=== PATIENT | male | born 1955 | race Caucasian/White ===

== ENCOUNTER 2017-01-18 21:12 | Inpatient (IN) | payer OTHER, SELFPAY ==
[~2017-01-18] VITALS: Ht 180.3 cm; Wt 161.9 kg
[2017-01-19] VITALS (38 sets, daily range): BP systolic 56–136; BP diastolic 22–81
[2017-01-19] MEDS ORDERED: ONDANSETRON 4MG/2ML VIAL (J2405) IV PRN (00:45)
[2017-01-19] MEDS ORDERED: ACETAMINOPHEN TAB 650MG DOSE (2X325MG) PO PRN (00:45)
[2017-01-19] MEDS ORDERED: BISACODYL 10 MG SUPP PR PRN (00:45)
[2017-01-19] MEDS ORDERED: ACETAMINOPHEN 650 MG SUPP PR PRN (00:45)
[2017-01-19] MEDS ORDERED: VANCOMYCIN 1000 MG/20 ML VIAL (J3370) As Ordered ONE (01:11)
[2017-01-19] MEDS ORDERED: VANCOMYCIN HCL 1,000 MG, VIAL MATE ADAPTER 1 EACH in D5W 250 ML IV ONE (01:15)
[2017-01-19 01:28] LABS: VENOUS BASE EXCESS -5.2 (-2.0-2.0); VENOUS O2 SATURATION 87.8 % (60.0-80.0); VENOUS PARTIAL PRESSURE CO2 36.1 mmHg (38.0-50.0); VENOUS PARTIAL PRESSURE O2 54.7 mmHg (30.0-50.0); VENOUS TOTAL CO2 20.8 MEQ/L (24.0-28.0)
[2017-01-19 01:30] LABS: BASO % 0.3 % (0.0-1.0); EOS # 0.2 K/mm3 (0.0-0.50); EOS % 1.3 % (0.0-3.0); LARGE UNSTAINED CELL # 0.1 K/mm3 (0.0-0.4); LYMPH # 0.8 K/mm3 (1.5-4.5); LYMPH % 4.6 % (24.0-44.0); MEAN CORPUSCULAR HEMOGLOBIN 27.9 pg (27.0-33.0); MEAN CORPUSCULAR HGB CONC 31.4 g/dl (32.0-36.5); MEAN CORPUSCULAR VOLUME 88.9 fl (80.0-96.0); MONO # 0.5 K/mm3 (0.0-0.8); MONO % 3.8 % (0.0-5.0); NEUTROPHILS # 12.2 K/mm3 (1.8-7.7); NEUTROPHILS % 89.1 % (36.0-66.0); PLATELET COUNT, AUTOMATED 273 k/mm3 (150-450); RED CELL DISTRIBUTION WIDTH 16.8 % (11.5-14.5); WHITE BLOOD COUNT 13.7 K/mm3 (4.0-10.0)
[2017-01-19] MEDS ORDERED: GLUCAGON FOR INJ 1 MG VIAL (J1610) SC PRN ×2 (01:30→10:00)
[2017-01-19] MEDS ORDERED: DEXTROSE 50% 50 ML SYRINGE IV PRN ×2 (01:30→10:00)
[2017-01-19] MEDS ORDERED: GLUCOSE 4 GM CHEW TABLET PO PRN ×2 (01:30→10:00)
[2017-01-19] MEDS ORDERED: SODIUM CHLORIDE 0.9% 1000 ML IV ONE ×2 (01:45→07:45)
[2017-01-19] MEDS ORDERED: NS 1,000 ML IV SCH (01:45)
[2017-01-19 01:51] LABS: INR 3.05
[2017-01-19] MEDS ORDERED: INSULANT SC (01:51)
[2017-01-19] MEDS ORDERED: ATEN100T PO (01:51)
[2017-01-19] MEDS ORDERED: CLON3PA TD (01:51)
[2017-01-19] MEDS ORDERED: FURO1TAB15 PO (01:51)
[2017-01-19] MEDS ORDERED: ATOR40TA PO (01:51)
[2017-01-19] MEDS ORDERED: WARF-23 PO (01:51)
[2017-01-19] MEDS ORDERED: OMEP20CA3 PO (01:51)
[2017-01-19] MEDS ORDERED: ADV500INH INH (01:51)
[2017-01-19] MEDS ORDERED: ZYLO300T4 PO (01:51)
[2017-01-19] MEDS ORDERED: VALS320T3 PO (01:51)
[2017-01-19] MEDS ORDERED: FLUT1SPR2 (01:51)
[2017-01-19] MEDS ORDERED: POTA10CA PO (01:51)
[2017-01-19] MEDS ORDERED: DILT1TAB7 PO (01:51)
[2017-01-19] MEDS ORDERED: VITA50003 PO (01:51)
[2017-01-19] MEDS ORDERED: METF1000 PO (01:51)
[2017-01-19 01:52] LABS: ALBUMIN 2.2 GM/DL (3.2-5.2); ALBUMIN/GLOBULIN RATIO 0.52 (1.00-1.93); BILIRUBIN,DIRECT 0.1 MG/DL (0.0-0.2); BILIRUBIN,TOTAL 0.6 MG/DL (0.2-1.0); CREATININE FOR GFR 2.09 MG/DL (0.70-1.30); GLOMERULAR FILTRATION RATE 34.7 (>49); MAGNESIUM LEVEL 2.5 MG/DL (1.8-2.4); POTASSIUM SERUM 4.6 MEQ/L (3.5-5.1); TOTAL PROTEIN 6.4 GM/DL (6.4-8.2)
[2017-01-19 02:32] LABS: FIBRINOGEN 449 MG/DL (221-452)
[2017-01-19] MEDS ORDERED: INSULIN HUMAN REGULAR 100 UNITS in NS 99 ML IV SCH ×2 (03:00→22:30)
[2017-01-19] MEDS: D5W/0.9% SODIUM CHLORIDE 1,000 ML IV SCH ×2 (03:19→13:24)
[2017-01-19] MEDS: PIPERACILLIN/TAZOBACTAM SOD 2.25 GM in D5W MINI-BAG PLUS 50 ML IV SCH ×4 (03:20→20:27)
[2017-01-19] MEDS ORDERED: POTASSIUM CHLORIDE 10 MEQ SR TABLET PO ONE (03:30)
[2017-01-19] MEDS ORDERED: IPRATROPIUM 0.5MG/ALBUTEROL 2.5MG INH SOL UD 3ML (DUONEB)(J7620) NEB PRN (03:30)
[2017-01-19] MEDS: INSULIN IV RATE CHANGE DOCUMENTATION ML/HR XX SCH ×2 (03:52→06:13)
[2017-01-19] MEDS: FLUCONAZOLE 200 MG in APPROPRIATE DILUENT 1 EA IV SCH ×2 (04:25→23:41)
--- NOTE | 2017-01-19 05:24 | PHACANCOPD ---
PHARMACY VANCOMYCIN DOSING Pt Demographics Demographics Patient Age:61 , Weight:160.000 , Gender: male Adjusted Body Weight Date: 01/19/17, Adjusted Body Weight: [109.2] Kg Vancomycin Vancomycin indication: SEVERE SEPSIS Vancomycin Target Ranges: 15-20 mcg/ml Vancomycin Load Y/N: No Load Dose Date Time Vancomycin Load Dose: Date: Time: Vancomycin Dose Date: 01/19/17. Current Vancomycin Dose: [750MG IV Q12H] Intermittent Dosing?: No Labs Labs Laboratory Tests 01/19/17 01:20 Red Blood Count 4.31, Mean Corpuscular Volume 88.9, Mean Corpuscular Hemoglobin 27.9, Mean Corpuscular Hemoglobin Concent 31.4 L, Red Cell Distribution Width 16.8 H, Neutrophils (%) (Auto) 89.1 H, Lymphocytes (%) (Auto) 4.6 L, Monocytes ( %) (Auto) 3.8, Eosinophils (%) (Auto) 1.3, Basophils (%) (Auto) 0.3, Neutrophils # (Auto) 12.2 H, Lymphocytes # (Auto) 0.8 L, Monocytes # (Auto) 0.5 , Eosinophils # (Auto) 0.2, Basophils # (Auto) 0.0 Micro Microbiology 01/19/17 Blood Culture, Received Pending 01/19/17 Blood Culture, Received Pending 01/19/17 MRSA Screen, Received Pending 01/19/17 Urine Culture, Received Pending Creatinine Clearance Date:01/19/17. Creatinine Clearance: [58.1]CALCULATED. Pending Labs TROUGH DUE 01/20@1200 Assessment and Plan Maintaining Current Dose?: Yes Reason for dose change: No Dose Change Pharmacist Note Pharmacist Note Date: 01/19/17. Pharmacist note:61 YO M SCR=2.09,BMI=49.2 [facility]DA-ADMITTED FACILITY TRANSFER(WHERE HR RECEIVED LEVAQUIN 750MG IV X1)SEVERE SEPSIS/ CELLULITIS:TREATING W/FLUCONAZOLE 200MG IV Q24H,PIP/TAZO 2.25 IV Q6H AND VANCOMYCIN PER CONSULT.VANCOMYCIN 1 GM ON ARRIVAL TO ICU,THEN WILL CONTINUE W/ VANCOMYCIN 750MG IV Q12H.TROUGH SCHEDULED 01/20@1200;WILL CONTINUE TO FOLLOW SCR AND LEVELS [facility] Jan 19, 2017 05:24
--- NOTE | 2017-01-19 06:51 | HPE ---
DATE OF ADMISSION: 01/19/2017 Time patient was seen was this morning at 1 a.m. Chief complaint is diabetic ketoacidosis and severe sepsis, transferred from [facility]. HISTORY OF PRESENT ILLNESS (HPI): 61-year-old male with past medical history of insulin-dependent type 2 diabetes, chronic kidney disease stage III-IV, also chronic atrial fibrillation on warfarin, chronic obstructive pulmonary disease (COPD) congestive heart failure (CHF) uncertain type, gout, hypertension, hyperlipidemia, vitamin D deficiency, allergic rhinitis, gastroesophageal reflux disease (GERD), cellulitis of lower extremity, also venous stasis of lower extremity was transferred from [facility] this evening around 1 a.m. due to severe sepsis and diabetic ketoacidosis (DKA). Per patient, he was in [facility] around 2 p.m.. Before that, he fell and was unable to get up and was transported to the hospital due to his fall. In addition, he stated that when he fell he did not hit his head and he could stepped on something. He did not lose consciousness and he has not been taking his insulin for the past 4 days. He was in his bed and does not want to get up due to his house was cold and he was out of fuel for heating. In addition, he has a left lower extremity cellulitis, which he cleans up every week normally. However, due to it was too cold inside the room, he does not want to get out of bed and he did not clean the wound for at least 2 weeks. Otherwise, the patient denies any chest pain, trouble breathing, abdominal pains, nausea, vomiting, diarrhea or constipation. Denies any problem with urination. At [facility], patient was found to have a glucose of 716 and anion gap of 25. In addition, he also found to have worsening of his left lower extremity cellulitis and his blood pressure was low with a systolic blood pressure in the 80s. He received Levaquin 750 mg once and also 4 liters of normal saline bolus at [facility]. He was also found to be having acute on chronic kidney disease with creatinine of 2.75 and a white count of 15.9, and ketone in his urine. ALLERGIES: NO KNOWN DRUG ALLERGY. Home medications: -allopurinol 300 mg po qdaily -atenolol 100 mg po daily -atorvastatin 40 mg po daily -clonidine 0.3 mg 1 topically q weekly missed change on 01/12 -Diltiazem ER 360 mg PO daily -Vitamin D 50,000 u Po q weekly -Fluticasone 2 spray Na daily -Furosemide 80 mg daiy -Insulin Glargine 65 u SC bid -Metformin 1000 mg PO bid -OMeprazole 20 mg PO daily - Potassium chloride 40 barbara po bid -Advair diskus 500-50 Mcg 1 puff inh bid -Valsartan/HCTZ 320-25 mg 1 tab po daily -Warfarin 5 mg and 7.5 mg every other day PAST MEDICAL HISTORY: Includin. Insulin-dependent type 2 diabetes. 2. Chronic atrial fibrillation on warfarin. 3. COPD. 4. Questionable obstructive sleep apnea. 5. Chronic kidney disease with a creatinine of 2.2 in November. 6. CHF, unknown type, takes Lasix 80 mg twice a day at home. 7. Gout. 8. Hypertension. 9. Morbid obesity. 10. Hyperlipidemia. 11. Vitamin D deficiency. 12. Allergic rhinitis. 13. GERD. 14. Cellulitis of the left lower extremity and venous stasis ulcer of bilateral lower extremity. PAST SURGICAL HISTORY: Denies. SOCIAL HISTORY: Patient lives at [place], [place]. Denies any smoking. Admits to occasional drinking. Denies any recreational drug use. Patient lives at home with his . FAMILY HISTORY: Hypertension and diabetes. REVIEW OF SYSTEMS: GENERAL: Patient denies any recent weight changes, any recent traveling. Denies any fever or chills. Admits to not taking insulin for the past few days. Admits to medical noncompliance. HEENT: Denies any changes with vision, smell, hearing or taste. CARDIOVASCULAR: Denies any chest pain. Admits to mild trouble breathing. PULMONARY: Admits to COPD and admits to some trouble breathing. Also, patient has possible obstructive sleep apnea. Patient did not undergo a sleep test due to patient did not want it. He also stated that he was on oxygen years ago. However, he is no longer on oxygen due to he chose not to. GASTROINTESTINAL (GI): Denies any abdominal pain, nausea, vomiting or constipation. GENITOURINARY (): Denies any problem with urination. MUSCULOSKELETAL: Admits to mild backache. ENDOCRINE: Admits to insulin-dependent type 2 diabetes. Denies any heat or cold intolerance. HEMATOLOGY/ONCOLOGY: Denies any easy bruising or any bleeding anywhere. PSYCHIATRIC: Denies any anxiety or depression. NEUROLOGIC: Denies any weakness on any one side of his body, any change of positions. DERMATOLOGICAL: Patient does have a chronic left lower extremity cellulitis, which he wraps up and cleans his wound about once every week. However, recently , due to it was too cold in the room, he did not bother to go out of his bed to clean his wound. PHYSICAL EXAMINATION: VITAL SIGNS: Temperature was 97.6. Heart rate was 76. Blood pressure was 86/ 54 with a respiratory rate of 20 and oxygen was saturating at 97% on 2 liters of nasal cannula. Patient's weight is 160 kg. Height is 5 feet and 11 inches. GENERAL: Patient is a morbidly obese, elderly female who was alert, awake, oriented times three. Appears to be mildly lethargic. Otherwise, laying comfortably in bed with head elevated at 30 degrees. HEENT: Normocephalic, atraumatic. Extraocular motor intact. Mucosa moist. NECK: Supple. No neck lymphadenopathy. CARDIOVASCULAR: Regular rate and rhythm. Normal S1, S2. Difficult to auscultate due to body habitus and also increased AP diameter. LUNGS: Clear to auscultate bilaterally. Heart rate was difficult to auscultate due to body habitus and increased AP diameter. ABDOMEN: Positive bowel sounds. Soft, obese, nontender, nondistended. No peritoneal signs. No ecchymosis. EXTREMITIES: Patient does have a candidiasis of bilateral groin area. He also has a cellulitis of left lower extremity extending to the left heel, which was erythematous, and also at least 1+ pitting edema produces serosanguineous drainage. However, no purulent drainage were noted. No crepitus. Not tender to palpation. Patient also has right lower extremity nonpitting edema. SKIN: Warm and dry, as described above. NEUROLOGICAL: Cranial nerves II-XII intact. No focal neurological deficit. LABORATORY DATA: Over at [facility], patient's WBC was 15.9. Sodium was 125, potassium 5.9. Patient's anion gap over there was 95, glucose 716. Creatinine was 2.75. At time of hospital at 1:20 a.m., patient's WBC 13.7, hemoglobin 12, hematocrit 30.3, platelet count was 273, MCV was 88.9. Sodium 135, potassium 4.6, chloride 98, bicarbonate 21, BUN 56, creatinine 2.09, GFR 34.7, fasting glucose 179, lactic acid 2, calcium 8, magnesium 2.5, was high. Total bilirubin 0.6, direct bilirubin 0.1, AST 31, ALT 14, alkaline phosphatase 81. CK was elevated 788, CK-MB 6.7. Troponin 0.03. Total protein 6.4. Albumin was low 2.2. Patient's coag shows PT 31, INR 3, fibrinogen 449 was within normal range, which was 221-452. D-dimer is currently pending. Patient's ABG shows pH of 7.35, pCO2 36, pO2 54.7, bicarbonate of 19.7, total CO2 was 20.8 and oxygen saturation was 87.8% with base excess of negative 5.2. Patient's Accu-Chek glucose was 174, 161, 189. Blood culture times two is currently pending. Patient also has PA and lateral chest x-ray ordered as well as Doppler duplex of bilateral lower extremity and left foot tibia-fibula x-ray ordered. Results are pending. CURRENT MEDICATION: - Senokot one tab - nystatin powder topically twice a day to the groin area - Zosyn 2.25 grams intravenously every 6 hours - D5 normal saline at a rate of 250 mL/hr - Hypoglycemic protocol with D50 25 mL intravenously and also glucose 16 grams by mouth and glucagon 1 mg subcutaneous. - vancomycin 1 gram intravenously every 24 hours adjusted by pharmacy - insulin drip - Tylenol 650 mg every 4 hours as needed - Dulcolax 10 mg per rectal daily as needed - Zofran 4 mg intravenously every 6 hours - fluconazole 200 mg intravenously every 24 hours ASSESSMENT AND PLAN: 61-year-old male with past medical history of insulin-dependent type 2 diabetes, chronic atrial fibrillation on warfarin, chronic obstructive pulmonary disease, possible obstructive sleep apnea (was never tested), left lower extremity cellulitis, chronic kidney disease stage III-IV, congestive heart failure with unknown ejection fraction, gout, hypertension, medical noncompliance, hyperlipidemia, vitamin D deficiency, allergic rhinitis, gastroesophageal reflux disease, venous stasis of bilateral lower extremity, and morbid obesity presented with: 1. Severe sepsis with a white blood cell (WBC) initially of 15.9 and blood pressure of 80s/50s. Patient did receive 4 liters of normal saline bolus in the [facility] as well as received one dose of Levaquin 750 mg. After patient has been transferred to our hospital it was apparent that patient's left lower extremity appears to be in poor care, was dripping serosanguineous fluid and appears to be erythematous and swollen, which extending from the left knee to the left heel. At this point, patient's blood pressure also dropped as low as 70s/40s. However, with the next blood pressure taken within 15 minutes it would go up to the high 80s again systolic. His is responding to IVF and maintaining a MAP>65. Cont to monitor for possible pressor therapy in the next 24 hrs. Otherwise, will obtain blood culture times two. Will continue patient on empiric antibiotic vancomycin, Zosyn and will consult wound care next day morning for the left lower extremity cellulitis and continue to monitor patient. 2. Diabetic ketoacidosis with history of fpo-dbjypvy-latcflvxy type 2 diabetes. Patient's home medications, including metformin, has been on hold. Patient is currently on an insulin drip. Patient's anion gap at [facility] initially was 25, currently is at 16. Will continue to monitor patient's fingersticks every 1 hour and patient has been started on D5 normal saline at a rate of 250 currently for both diabetic ketoacidosis and severe sepsis, and will keep patient nothing by mouth at this moment due to severe sepsis and DKA. 3. Bilateral lower extremity edema. Doppler duplex of the lower extremity has been ordered. Will followup. 4. Abnormal electrocardiogram (EKG), which shows ventricular rate of 87, atrial fibrillation, marked left axis deviation. Also, moderate intraventricular conduction delay and also prolonged QT and ST-T wave changes. Will repeat an EKG in the morning. Cardiac marker has been ordered. Did not show any elevation. Troponin was 0.03. CK was 788. CK-MB was 6.7. Will repeat another set in the morning and will continue to monitor patient. 5. Chronic atrial fibrillation. Patient's international normalized ratio (INR) currently is 3.05, slightly therapeutic. Will hold off the warfarin for now and will restart as needed. Continue to follow prothrombin time (PT)/INR in the morning. 6. Fall at home. However, there is no obvious bruising. Patient did not hit his head. Patient does complain of a mild backache. However, he stated he had it before when he was at home. Will continue close monitoring. Will order imaging if needed. 7. Hyperkalemia with a potassium of 5.9 while patient was at [facility]. However, potassium currently is 4.6. Will continue to monitor. Will keep K between 4 and 5 as patient has been treated with DKA. 8. Hyponatremia with a sodium of 125 when patient was at [facility]. Current sodium is 135. Will continue to monitor closely and will avoid hypernatremia. 9. Hypomagnesemia with magnesium of 2.5. Currently will continue to monitor. 10. Malnutrition with albumin of 2.2. Will start supplementation once patient is able to eat and drink. 11. Anemia with a hemoglobin of 12, hematocrit of 38.7. Will obtain fecal occult and B12, folate and ertapenem. 12. Chronic obstructive pulmonary disease. Will continue home Advair with DuoNebs every 2 hours as needed. Continue oxygen and due to severe sepsis, will keep oxygen saturation above 92%. Later on will change it back between 88-92%. 13. Acute on chronic kidney disease with a creatinine of 2.75 initially at [facility]. However, most recent creatinine in our hospital shows it was 2.09, which is close to patient's baseline, which was measured in November. At that time, creatinine was 2. Will continue IV hydration. Will hold off patient's home metformin. 14. Congestive heart failure. Unknown ejection fraction. Patient is on furosemide 80 mg by mouth daily at home; hold as pt is hypotensive. Will consider to order an echocardiogram if needed. 15. History of hypertension. Patient was on multiple hypertensive medication at home, including atenolol, clonidine, diltiazem, valsartan, hydrochlorothiazide. However, patient is in hypotension currently due to severe sepsis and DKA. Will continue to monitor. Will hold off any home medication for now and restart them as needed. 16. History of gout. Continue allopurinol. 17. Medical noncompliance. Per our household appliances service technician, it was reported that some of the patient's home medication appears to be full. Therefore, likely, he has not been taking them. Will likely need to consult patient and family services (PFS) later once patient is more stable. 18. Hyperlipidemia. Continue home statin. 19. Vitamin D deficiency. Continue to monitor. 20. Allergic rhinitis. Continue Flonase. 21. Gastroesophageal reflux disease. Continue home proton pump inhibitor (PPI) . 22. Cellulitis of the left lower extremity and venous stasis. Will consult wound care. 23. Possible foreign object in foot when patient fell he felt he stepped on something. X Ray was ordered, will follow up. 23. Deep venous thrombosis (DVT) prophylaxis. Currently, patient has a supratherapeutic INR and will resume warfarin as needed. DISPOSITION: Patient's prognosis is guarded due to his severe sepsis with hypotension and also DKA. Will possibly need central line placement if patient' s mean arterial pressure (MAP) drops below 65 and at this point, we will continue patient on insulin drip, will followup with a blood culture and continue to monitor patient. Patient has been discussed with attending doctor, Dr. Murillo. My preceptor for this patient encounter was Tal Murillo MD. The preceptor was physically present in the building during the encounter and was fully available. As needed, all aspects of the patient interview, examination, medical decision making process, and medical care plan development were reviewed and approved by the preceptor. The preceptor is aware and concurs with the plan as stated in the body of this note and will attest to such by his/her co-signature. CESAR
[2017-01-19 07:19] LABS: BASO % 0.3 % (0.0-1.0); EOS # 0.1 K/mm3 (0.0-0.50); EOS % 1.1 % (0.0-3.0); LARGE UNSTAINED CELL # 0.1 K/mm3 (0.0-0.4); LARGE UNSTAINED CELL % 0.8 % (0.0-4.0); LYMPH # 0.8 K/mm3 (1.5-4.5); LYMPH % 5.6 % (24.0-44.0); MEAN CORPUSCULAR HEMOGLOBIN 27.8 pg (27.0-33.0); MEAN CORPUSCULAR HGB CONC 31.5 g/dl (32.0-36.5); MEAN CORPUSCULAR VOLUME 88.1 fl (80.0-96.0); MONO # 0.4 K/mm3 (0.0-0.8); MONO % 3.6 % (0.0-5.0); NEUTROPHILS # 10.4 K/mm3 (1.8-7.7); NEUTROPHILS % 88.6 % (36.0-66.0); PLATELET COUNT, AUTOMATED 242 k/mm3 (150-450); RED CELL DISTRIBUTION WIDTH 16.8 % (11.5-14.5); WHITE BLOOD COUNT 11.7 K/mm3 (4.0-10.0)
[2017-01-19 07:24] LABS: INR 3.36
[2017-01-19 08:02] LABS: CALCIUM LEVEL 7.6 MG/DL (8.8-10.2); CREATININE FOR GFR 2.05 MG/DL (0.70-1.30); GLOMERULAR FILTRATION RATE 35.4 (>49); MAGNESIUM LEVEL 2.4 MG/DL (1.8-2.4); PERCENT SATURATION 17.9 % (19.7-37.4); POTASSIUM SERUM 4.2 MEQ/L (3.5-5.1)
[2017-01-19] MEDS: ATORVASTATIN 20 MG TAB PO SCH (08:03)
[2017-01-19] MEDS: SENOKOT S TAB PO SCH ×2 (08:03→20:28)
[2017-01-19] MEDS: OMEPRAZOLE 20 MG CAP PO SCH (08:03)
[2017-01-19] MEDS: ALLOPURINOL 300 MG TAB PO SCH (08:03)
[2017-01-19] MEDS: NYSTATIN 100,000 UNITS/GM TOPICAL PWD 15 GM TOP SCH ×2 (08:04→20:29)
[2017-01-19] MEDS: FLUTICASONE PROP 0.05% NASAL SPRAY 16 GM (FLONASE) SCH (08:05)
[2017-01-19] MEDS: ADVAIR DISKUS 500/50 INH PWD INH SCH ×2 (08:11→19:43)
[2017-01-19 08:48] LABS: FOLATE > 24.0 NG/ML (>5.4); VITAMIN B12 LEVEL 640 PG/ML (247-911)
[2017-01-19] MEDS ORDERED: NYSTATIN CREAM 15 GM TOP SCH (09:00)
[2017-01-19] MEDS ORDERED: LIDOCAINE 1% MDV 20ML VIAL As Ordered ONE (10:25)
[2017-01-19] MEDS ORDERED: NS 500 ML IV ONE ×2 (10:30)
[2017-01-19] MEDS ORDERED: NOREPINEPHRINE 4 MG/4 ML AMP As Ordered ONE (10:41)
--- NOTE | 2017-01-19 10:59 | REP ---
Clinical: Sepsis . Comparison: None . Findings: The mediastinum and cardiac silhouette are stable and within normal limits for portable technique. The lung latif are clear without acute consolidation, effusion, or pneumothorax. Skeletal structures are intact. Impression: Normal portable chest x-ray Signed by Taran Oquendo MD 01/19/2017 10:52 A
[2017-01-19] MEDS ORDERED: NOREPINEPHRINE BITARTRATE 8 MG in D5W 500 ML IV SCH (11:00)
[2017-01-19 11:30] LABS: CALCIUM LEVEL 7.3 MG/DL (8.8-10.2); CREATININE FOR GFR 2.18 MG/DL (0.70-1.30); POTASSIUM SERUM 4.4 MEQ/L (3.5-5.1)
--- NOTE | 2017-01-19 11:40 | REP ---
Clinical: Rule out foreign body. Technique: Portable AP and lateral views of the right and left tibia / fibula Findings: The osseous structures and joint spaces demonstrate age-related changes. There is no evidence for acute fracture or dislocation. No radiodense foreign body identified. Impression: Age-related degenerative changes. No foreign body identified. Signed by Taran Oquendo MD 01/19/2017 11:31 A
--- NOTE | 2017-01-19 11:49 | REP ---
PORTABLE CHEST: AP portable view of the chest is performed. COMPARISON: 01/19/2017. Prominent cardiac silhouette is again noted. No new infiltrates are seen. There is placement of a left subclavian central venous catheter with the tip in the superior vena cava. There is no pneumothorax. IMPRESSION: No pneumothorax, status post insertion of left central venous catheter, tip superior vena cava. Signed by Larry Walters MD 01/19/2017 01:26 P
--- NOTE | 2017-01-19 11:53 | REP ---
Clinical: Rule out foreign body. Technique: Portable AP and lateral views of the right and left foot. Findings: Swelling and extensive degenerative changes are appreciated bilaterally (left greater than right). No obvious acute fracture or dislocation. No radiodense foreign body. Impression: No foreign body identified. Signed by Taran Oquendo MD 01/19/2017 11:44 A
[2017-01-19 11:54] LABS: ABG BASE EXCESS -5.3 (-2.0-2.0); ABG HCO3 19.2 MEQ/L (22.0-26.0); ABG PARTIAL PRESSURE CO2 34.4 mmHg (35.0-45.0); ABG PARTIAL PRESSURE O2 94.4 mmHg (75.0-100.0); ABG STANDARD HCO3 20.1 MEQ/L (22.0-26.0); ABG TOTAL CO2 20.3 MEQ/L (23.0-31.0); ABG pH (ARTERIAL) 7.365 UNITS (7.350-7.450)
[2017-01-19] MEDS: HumaLOG INSULIN (NovoLOG) PER UNIT SC SCH ×2 (12:26→17:45)
[2017-01-19] MEDS: VANCOMYCIN HCL 750 MG, VIAL MATE ADAPTER 1 EACH in D5W 250 ML IV SCH (13:24)
[2017-01-19 14:10] LABS: CREATININE FOR GFR 2.21 MG/DL (0.70-1.30); GLOMERULAR FILTRATION RATE 32.5 (>49); POTASSIUM SERUM 4.6 MEQ/L (3.5-5.1)
[2017-01-19] MEDS: SANTYL OINT 30GM TOP SCH (15:51)
[2017-01-19] MEDS: NS 1,000 ML IV SCH ×2 (16:10→23:09)
--- NOTE | 2017-01-19 17:00 | CR ---
DATE OF CONSULTATION: 01/19/2017 TELEMEDICINE CONSULT CONSULT REQUESTED BY: Dr. Clayton Waite. REGARDING: Bilateral lower extremity wounds. HISTORY OF PRESENT ILLNESS: A 61-year-old morbidly obese diabetic, noncompliant male admitted with a blood glucose of over 700, grossly dehydrated, in a home that, by history, does not have running water or heat. The patient was lying on the floor, not unconscious, for over an hour and could not get up due to his size. He was brought to the emergency room, resuscitated, and is now in the intensive care unit (ICU) for monitoring. Patient has a longstanding history of bilateral venous stasis ulcers and venous insufficiency, diabetic neuropathy, stasis dermatitis, and a wound involving the right heel which he states was due to recently stepping on a foreign object. A recent x-ray has confirmed that there is no residual evidence of foreign body in that area. The patient is presently in the ICU, alert and oriented, and although sometimes vague with his responses is, is able to communicate. The fact that the patient was Iying on the floor for over an hour places him at risk for potential deep tissue injuries involving the bony prominence areas including the heels and sacral coccyx areas. These areas have the potential to progress, over the next several days to develop into deep tissue injuries which can lead to advance pressure injuries and should be taken into account, since the precipitating problem occurred before the patient was admitted to the hospital. On physical examination, morbidly obese male talking and in no acute distress. Left lower extremity shows chronic venous stasis disease with extensive edema localized in the mid-tibial area. There is diffuse erythema with serosanguineous drainage from the denuded skin. The dorsal aspect of the left foot shows induration and erythema. On the lateral supramalleolar area of the left lower extremity there is a wound measuring 7.5 cm x 4.5 cm with a wound depth of 0.4 cm. This wound base shows fibrin slough with underlying superficial necrotic tissue. Just above this, there is a wound cluster measuring 6.5 cm x 5.0 cm which shows serous drainage and macerated skin. On the right lower extremity, there is a prior amputation of the distal portion of the right second toe, which remains healed. On the heel, there is a wound measuring 2.5 cm x 3.5 cm with a wound depth of 0.8 cm. There is extensive overlying callus formation in this area and as a result the entire wound base cannot be fully visualized. The drainage is serosanguineous without odor history. On the coccyx, by history, there is a stage I pressure injury. Case discussed with the hospitalist, Dr. Waite in terms of treatment. For the venous stasis ulcer involving the left lower extremity, Santyl, alginate and a foam dressing will be applied. The leg will be wrapped from the metatarsal level to the popliteal with Kerlix and then an overlying Coban dressing applied. This will be changed on an every other day basis. On the right lower extremity, an Opti lock dressing or a foam dressing, nonadherent, can be applied to any moist area, secured with a Kerlix and then a Coban dressing. Heel float boots should be applied to right and left heels. The patient may be out of bed as tolerated. Hydration should be maintained with IVs and the obvious diabetic control per medicine will be initiated. A hemoglobin A1c should be obtained for baseline. Patient does not appear to have any clinical signs of necrotizing fasciitis, as he does not have an elevated white count, is not tachycardic and is not febrile he is not complaining of any localized lower extremity pain and/or tenderness Vital signs remain stable except for a somewhat low blood pressure which is most probably is based on severe dehydration and not sepsis.,. Necrotizing fasciitis, therefore does not appear in the clinical diagnosis. An offloading mattress for the hospital bed is important, and if the patient is out of bed in a chair, a ROHO cushion should be utilized. If he has a Sacral pressure injury stage I, this has the potential for further progression and should be monitored in the patient should have a change in position every 2 hours. IV antibiotics with vancomycin and Zosyn have been started however, based on clinical findings and his presentation, these can be discontinued unless there is a strong indication or new findings. I have discussed this with Dr. Waite. He will reconsult as needed. We will be glad to see the patient in the wound clinic if he is discharged and/or transferred to [facility] facilities and if he has any further questions regarding treatment options and/or additional therapies, he will contact us at the wound center. Thank you for this consult. CESAR
--- NOTE | 2017-01-19 20:58 | ECHO ---
DATE OF PROCEDURE: 01/19/2017 REFERRING PHYSICIAN: Clayton Waite MD PATIENT LOCATION: Inpatient, room 3206 REASON FOR ECHOCARDIOGRAM: Syncope. 2D MEASUREMENTS: IVS: 1.0 cm LV: 5.0 cm LVPW: 1.0 cm LA: 5.3 cm Aorta: 3.4 cm IVC: 3.2 cm DOPPLER MEASUREMENTS: Peak velocity across the aortic valve: 1.3 m/s Peak velocity across the LVOT: 0.84 m/s Tricuspid valve velocity: 1.8 m/s 2D COMMENTS: 1. Technically limited study due to poor acoustic window. 2. The left ventricular size is normal with an estimated global left ventricular systolic ejection fraction of 60%. Left ventricular wall thickness also appeared to be normal in limited views. 3, Moderately enlarged left atrium at 5.3 cm. The right atrium and the right ventricle were not well visualized. 3. The atrial septum was not well visualized. 4. Normal aortic root. 5. No pericardial effusion noted in limited views. 6. Mildly calcified aortic valve, leaflet excursion appeared to be normal. Mildly calcified mitral annulus, the anterior mitral valve leaflet was not well visualized. The tricuspid valve as well as the pulmonic valve and proximal pulmonary artery branches were not well visualized. 7. The inferior vena cava was dilated, central venous pressure might be elevated. DOPPLER: No significant valvular abnormalities detected but trace tricuspid regurgitation in the limited views. IMPRESSION: 1. Technically limited study due to poor acoustic window. 2. Probably normal global left ventricular systolic function. 3. Isolated moderately enlarged left atrium. No significant mitral regurgitation detected in this transthoracic echocardiogram. 4. Trace tricuspid regurgitation with a normal calculated pulmonary artery systolic pressure. 5. There are features of elevated central venous pressure. 6. The patient during the test appeared to be in atrial fibrillation. [facility]
[2017-01-19] MEDS ORDERED: HumaLOG INSULIN (NovoLOG) PER UNIT SC SCH (21:00)
--- NOTE | 2017-01-19 22:07 | IPNPDOC ---
Subjective Date Seen The patient was seen on 01/19/17. Subjective Chief Complaint/HPI The patient is a 61-year-old male admitted with a reason for visit of Sepsis/ Hyperglycemia. Patient seen and examined at bedside. Denies fevers, chills, chest pain, shortness of breath, nausea, vomiting, abdominal pain, diarrhea, constipation, dizziness, headache, confusion, weakness, numbness/tingling, fatigue, hematuria , hematochezia, any change in bowel or bladder habits. Admits to lower extremity rash/wound of which he usually used to change his dressing daily, but stopped doing so due to feeling cold in his home. 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 States that he was going up the stairs to get something to drink, his pants fell down, he felt dizzy, and he felt down on the ground after reaching the top floor, but does not recall mechanism of how he fell. Denies hitting head. Admits that he has not taken his insulin for around 4 days due to feeling cold in his [place] home. Admits to starting to feel dizzy and not feeling well after not taking insulin. Patient also admits there is no running water in his home and he has turned the heat off in home to save electricity. General: Reports: Normal Appetite, Denies: Chills, Fatigue Constitutional: Denies: Chills, Fever, Weakness ENT: Denies: Dysphagia, Head Aches, Sore Throat Skin: Reports: Other (wounds on lower extremities bilaterally), Rash Pulmonary: Denies: Cough, Dyspnea Cardiovascular: Denies: Chest Pain, Palpitations Gastrointestinal: Denies: Abdominal Pain, Constipation, Diarrhea, Hematochezia , Melena, Nausea, Vomiting Genitourinary: Denies: Dysuria, Frequency, Hematuria, Incontinence Endocrine: Reports: Cold Intolerance, Denies: Polydipsia, Polyphagia, Polyuria Musculoskeletal: Denies: Arm Pain, Back Pain, Foot Pain, Hand Pain, Joint Pain , Leg Pain, Muscle Pain, Neck Pain, Shoulder Pain Neurological: Denies: Confusion, Numbness, Seizures, Weakness Psych: Reports: Mood Normal Objective Physical Examination General Exam: Positive: Alert, Cooperative, Mild Distress, Other (Obese but pleasant male. Very poor hygiene.) Eye Exam: Positive: Conjunctiva & lids normal, PERRLA, Negative: Sclera icteric ENT Exam: Positive: Atraumatic Neck Exam: Positive: Supple, Negative: JVD, Lymphadenopathy, thyromegaly Chest Exam: Positive: Clear to auscultation, Normal air movement, Negative: Rales, Rhonchi, Wheezing Heart Exam: Positive: Irregular Rhythm, Normal S1, Normal S2, Other (very distant heart sounds due to obese body habitus), Rate Normal, Negative: Gallops, Murmurs, Rubs Abdomen Exam: Positive: Normal bowel sounds, Soft, Negative: Hepatospenomegaly, Mass, Tenderness Male Exam: Positive: Erythema (Patient's inguinal and inner thigh area had erythema and fungal rash presentation), Negative: Discharge Extremity Exam: Positive: Other (candidiasis of bilateral groin, LLE erythema and cellulitis to the L heel and pitting edema. No crepitus noted. RLE edema. Venous stasis ulcers of bilateral lower extremities. Amputated R 2nd toe and L 2nd and 3rd toes. Poor foot hygiene with onychomycoses in toenails. ) Skin Exam: Positive: Other skin issue (LLE cellulitis and bilateral venous stasis ulcers/dermatitis of lower extremities, pressure ulcers of heels, hyperthickened discolored toenails with onychomycoses, very poor foot hygiene bilaterally. 2nd distal R toe amputated. Distal 2nd and 3rd L toe amputated. Some pitting edema noted in LLE and some edema noted in RLE. Warm and dry lower extremities bilaterally.), Rash Neuro Exam: Positive: Normal Speech Psych Exam: Positive: Memory Intact, Mental status NL, Mood NL, Oriented x 3 RAD Interpretation STUDY: Foot X-ray AP, Lateral, and Bilateral: no foreign body; Tibula/ Fibula Bilateral X-ray: Age related degenerative changes. No foreign body identified. Assessment /Plan Assessment 61 yo M with a PMH of IDDM type 2, CKD Stage III-IV with baseline Cr of ~2, chronic atrial fibrillation on warfarin, COPD, CHF with preserved systolic EF 60 %, gout, HTN, HLD, vitamin D deficiency, allergic rhinitis, GERD, cellulitis of the lower extremities, venous stasis ulcer of the lower extremities, being admitted via transfer from [facility] for DKA and severe sepsis. Problems (1) Severe sepsis Status: Acute Response to Treatment: Progressing Discussed With: Patient Problem Specific Plan: Consult Specialist, Monitor Clinically, Repeat Labs Problem Text: Patient with severe hypotension with BP in 60s systolic and has gone down to as low as 20s diastolic, leukocytosis, and elevated RR>20. Had consulted Dr. Lance Rankin for central line placement, and Dr. Harley Mario for possible necrotizing fasciitis. Have discussed case with both physicians. Central line is in L SVC. Have started patient on levophed, and it was at setting of 10 mcg/hr. Changed IVF from D5 1/2 NS @150/hr to NS @150/hr. BPs have been low most of the day in the 80s-90s systolic. CVP was 7 earlier today. Will continue IVF and pressor support as necessary until patient hemodynamically stable. Have ordered lactic acid which was 1.5 most recently and WNL. Have ordered wound cx and gram stain, blood cx, urinalysis, urine cx, MRSA screen. Continue to monitor CBCs, BMPs. Treating with broad spectrum antibiotics: vancomycin and zosyn. (2) Sepsis Status: Acute Response to Treatment: Progressing Discussed With: Patient Problem Specific Plan: Consult Specialist, Monitor Clinically, Repeat Labs Problem Text: Consulted Dr. Mario and Dr. Rankin. Central line in. Giving pressor support and IVF. Continue to check on CBC, BMP, and lactic acid levels. (3) Hypotension Status: Acute Response to Treatment: Uncontrolled Discussed With: Patient Problem Specific Plan: Monitor Clinically, Repeat Labs Problem Text: Hold all BP medications at this time. Continue to treat with pressor support and IVF. On levophed and NS @ 150 mLs/hr. (4) DKA (diabetic ketoacidosis) Status: Acute Response to Treatment: Improving Discussed With: Patient Problem Specific Plan: Monitor Clinically, Repeat Labs Problem Text: Earlier today, patient's anion gap had closed and was initially 16, then 13. Now, anion gap is 17 (high). Most recent BMP shows fasting glucose of 280. Continue to monitor BMP. Continue IVF and supportive care. Patient has started and tolerated regular diet. Has been transitioned to subcutaneous insulin. Insulin drip was stopped this morning after closure of anion gap. Continue current management with long-acting regular insulin coverage. Will add AC and HS sliding scale coverage. (5) Diabetes Status: Chronic Response to Treatment: Worse, Uncontrolled Discussed With: Patient Problem Specific Plan: Monitor Clinically, Repeat Labs Problem Text: HgbA1C of 12.6 and severely uncontrolled. Will continue to treat with long-acting insulin as above. Will add AC and HS sliding scale coverage as necessary. (6) CKD (chronic kidney disease) Status: Acute Response to Treatment: Progressing Discussed With: Patient Problem Specific Plan: Monitor Clinically, Repeat Labs Problem Text: Patient producing urine. Do not have baseline Cr number for patient. Will call [facility] to find out baseline. Have ordered urinalysis, urine culture, and renal ultrasound. Will consult Nephrology. (7) Afib Status: Chronic Response to Treatment: Uncontrolled Discussed With: Patient Problem Specific Plan: Monitor Clinically, Repeat Labs Problem Text: Patient supposed to be on coumadin. Not on coumadin right now as his INR is supratherapeutic at 3.36. Holding coumadin for now. Will aim for rate control for now. Will hold any hypertensive medications and beta blockers at this time due to severe hypotension/sepsis. (8) COPD (chronic obstructive pulmonary disease) Status: Chronic Response to Treatment: Stable Discussed With: Patient Problem Specific Plan: Monitor Clinically Problem Text: Satting in 90s on room air. ABG done today shows pH of 7.365, pCO2 of 34.4, and pO2 of 94.4 consistent with respiratory alkalosis. RR had been running >20s today though. Continue to monitor respiratory status. Patient does not exhibit accessory muscle usage or c/o difficulty breathing. Will continue home medications: advair diskus and nebulizer duonebs in hospital. (9) CHF (congestive heart failure) Status: Chronic Response to Treatment: Stable Discussed With: Patient Problem Specific Plan: Monitor Clinically, Repeat Labs Problem Text: Obtain echocardiogram. Monitor for SOB and lower extremity edema. Holding lasix for now due to low BP. (10) Gout Status: Chronic Response to Treatment: Stable Discussed With: Patient Problem Specific Plan: Monitor Clinically Problem Text: Continue allopurinol. (11) HTN (hypertension) Status: Chronic Response to Treatment: Worse Discussed With: Patient Problem Specific Plan: Monitor Clinically Problem Text: Patient is actually hypotensive. Will hold off all BP medications at the moment. Restart when stable and BPs high. (12) Dyslipidemia Status: Chronic Response to Treatment: Stable Discussed With: Patient Problem Specific Plan: Monitor Clinically Problem Text: Continue atorvastatin. (13) GERD (gastroesophageal reflux disease) Status: Chronic Response to Treatment: Stable Discussed With: Patient Problem Specific Plan: Monitor Clinically Problem Text: Continue omeprazole. (14) Fall Status: Acute Discussed With: Patient Problem Specific Plan: Monitor Clinically, Repeat Labs, Repeat Tests Problem Text: Will continue to monitor labs for any abnormalities like anemia. Will get physical therapy consult. Will treat with PRN pain medication. (15) Cellulitis Status: Acute Response to Treatment: Uncontrolled Discussed With: Nurse, Patient Problem Specific Plan: Consult Specialist, Monitor Clinically Problem Text: Consulted and discussed case with Dr. Zambrano. Seems more of venous stasis ulcers and dermatitis. Please see his note for recommendations and dressing change instructions as well as therapies. Continue nystatin, fluconazole, and broad spectrum antibiotics: vancomycin and zosyn. Plan/VTE VTE Prophylaxis Ordered?: No (has supratherapeutic INR and is normally on coumadin for afib. Has lower extremity venous stasis ulcers and cellulitis. Difficult to place antiembolic stockings or SCDs at this point in time. ) Plan/Urinary Catheter Urinary Catheter: Other Catheter: (has lacy cathether in) Plan IVF: Continue Diet: Continue Current Activity: Bedrest Therapy: PT, Wound Consult Diagnostics: Check Labs, Repeat Labs in AM, Obtain Cultures, Ultrasound Anticipated Discharge: Home With Services Disposition Home after hemodynamically stable. Prognosis is guarded due to severe sepsis requiring central line. VS, I&O, 24H, [facility] Vital Signs/I&O Vital Signs Date Time Temp Pulse Resp B/P Pulse Ox O2 Delivery O2 Flow Rate FiO2 01/19/17 20:00 99.3 89 18 110/59 96 Room Air 01/19/17 03:24 2.0 I&O- Last 24 Hours up to 6 AM 01/19/17 06:00 Intake Total 6852 ml Output Total 490 ml Balance 6362 ml Laboratory Data 24H LABS Laboratory Tests 2 01/19/17 00:08: Bedside Glucose (Misc Panel) 174H 01/19/17 01:04: Bedside Glucose (Misc Panel) 161H 01/19/17 01:20: Aspartate Amino Transf (AST/SGOT) 31, Alanine Aminotransferase (ALT/SGPT) 14, Alkaline Phosphatase 81, Total Bilirubin 0.6, Direct Bilirubin 0.1, Albumin 2.2L , Albumin/Globulin Ratio 0.52L, Anion Gap 16, White Blood Count 13.7H, Red Blood Count 4.31, Hemoglobin 12.0L, Hematocrit 38.3L, Mean Corpuscular Volume 88.9, Mean Corpuscular Hemoglobin 27.9, Mean Corpuscular Hemoglobin Concent 31.4L, Red Cell Distribution Width 16.8H, Platelet Count 273, Neutrophils (%) ( Auto) 89.1H, Lymphocytes (%) (Auto) 4.6L, Monocytes (%) (Auto) 3.8, Eosinophils (%) (Auto) 1.3, Basophils (%) (Auto) 0.3, Neutrophils # (Auto) 12.2H, Lymphocytes # (Auto) 0.8L, Monocytes # (Auto) 0.5, Eosinophils # (Auto) 0.2, Basophils # (Auto) 0.0, Blood Gas Bicarbonate Standard 20.0, Calcium Level 8.0L , Creatine Kinase MB 6.7H, Creatine Kinase MB Relative Index 0.85, Glomerular Filtration Rate 34.7L, Lactic Acid Level 2.0, Large Unclassified Cells # 0.1, Large Unclassified Cells % 1.0, Magnesium Level 2.5H, Total Creatine Kinase 788H , Total Protein 6.4, Troponin I 0.03, Venous Blood Base Excess -5.2L, Venous Blood pH 7.354, Venous Blood Partial Pressure CO2 36.1L, Venous Blood Partial Pressure O2 54.7H, Venous Blood Total Carbon Dioxide 20.8L, Venous Blood HCO3 19.7L, Venous Blood Oxygen Saturation 87.8H 01/19/17 01:27: D-Dimer, Quantitative < 270.0, Fibrinogen 449, Prothromb Time International Ratio 3.05, Prothrombin Time 31.6H 01/19/17 02:13: Bedside Glucose (Misc Panel) 189H 01/19/17 03:27: Bedside Glucose (Misc Panel) 216H 01/19/17 04:05: Bedside Glucose (Misc Panel) 239H 01/19/17 05:05: Bedside Glucose (Misc Panel) 227H 01/19/17 06:05: Bedside Glucose (Misc Panel) 219H 01/19/17 06:48: Activated Partial Thromboplast Time 46.7H, Anion Gap 13, B-Type Natriuretic Peptide 344H, White Blood Count 11.7H, Red Blood Count 4.02L, Hemoglobin 11.2L, Hematocrit 35.4L, Mean Corpuscular Volume 88.1, Mean Corpuscular Hemoglobin 27.8 , Mean Corpuscular Hemoglobin Concent 31.5L, Red Cell Distribution Width 16.8H, Platelet Count 242, Neutrophils (%) (Auto) 88.6H, Lymphocytes (%) (Auto) 5.6L, Monocytes (%) (Auto) 3.6, Eosinophils (%) (Auto) 1.1, Basophils (%) (Auto) 0.3, Neutrophils # (Auto) 10.4H, Lymphocytes # (Auto) 0.8L, Monocytes # (Auto) 0.4, Eosinophils # (Auto) 0.1, Basophils # (Auto) 0.0, Blood Urea Nitrogen 52H, Creatinine 2.05H, Sodium Level 136, Potassium Level 4.2, Chloride Level 100, Carbon Dioxide Level 23, Calcium Level 7.6L, Creatine Kinase MB 6.6H, Creatine Kinase MB Relative Index 0.87, Ferritin 104, Folate > 24.0, Glomerular Filtration Rate 35.4L, Iron Level 32L, Large Unclassified Cells # 0.1, Large Unclassified Cells % 0.8, Magnesium Level 2.4, Prothromb Time International Ratio 3.36, Prothrombin Time 34.0H, Total Creatine Kinase 753H, Total Iron Binding Capacity 179L, Transferrin % Saturation 17.9L, Troponin I 0.03, Vitamin B12 Level 640 01/19/17 08:20: Bedside Glucose (Misc Panel) 152H 01/19/17 10:42: Anion Gap 12, Blood Urea Nitrogen 55H, Creatinine 2.18H, Sodium Level 137, Potassium Level 4.4, Chloride Level 102, Carbon Dioxide Level 23, Calcium Level 7.3L, Glomerular Filtration Rate 33.0L, Lactic Acid Level 1.5 01/19/17 11:35: Arterial Blood pH 7.365, Arterial Blood Partial Pressure CO2 34.4L, Arterial Blood Partial Pressure O2 94.4, Arterial Blood Total CO2 20.3L, Arterial Blood HCO3 19.2L, Arterial Blood Base Excess -5.3L, Arterial Blood Oxygen Saturation 96.6, Blood Gas Bicarbonate Standard 20.1L 01/19/17 12:23: Bedside Glucose (Misc Panel) 250H 01/19/17 13:30: Anion Gap 17H, Blood Urea Nitrogen 52H, Creatinine 2.21H, Sodium Level 134L, Potassium Level 4.6, Chloride Level 99, Carbon Dioxide Level 18L, Calcium Level 8.0L, Total Creatine Kinase 723H, Creatine Kinase MB 6.8H, Creatine Kinase MB Relative Index 0.94, Estimated Mean Plasma Glucose 315H, Glomerular Filtration Rate 32.5L, Hemoglobin A1c 12.6H, Troponin I 0.03 01/19/17 17:41: Bedside Glucose (Misc Panel) 459H 01/19/17 20:00: Bedside Glucose (Misc Panel) 487H CBC/BMP Laboratory Tests 01/19/17 01:20 Red Blood Count 4.31, Mean Corpuscular Volume 88.9, Mean Corpuscular Hemoglobin 27.9, Mean Corpuscular Hemoglobin Concent 31.4 L, Red Cell Distribution Width 16.8 H, Neutrophils (%) (Auto) 89.1 H, Lymphocytes (%) (Auto) 4.6 L, Monocytes ( %) (Auto) 3.8, Eosinophils (%) (Auto) 1.3, Basophils (%) (Auto) 0.3, Neutrophils # (Auto) 12.2 H, Lymphocytes # (Auto) 0.8 L, Monocytes # (Auto) 0.5 , Eosinophils # (Auto) 0.2, Basophils # (Auto) 0.0 01/19/17 06:48 Red Blood Count 4.02 L, Mean Corpuscular Volume 88.1, Mean Corpuscular Hemoglobin 27.8, Mean Corpuscular Hemoglobin Concent 31.5 L, Red Cell Distribution Width 16.8 H, Neutrophils (%) (Auto) 88.6 H, Lymphocytes (%) (Auto ) 5.6 L, Monocytes (%) (Auto) 3.6, Eosinophils (%) (Auto) 1.1, Basophils (%) ( Auto) 0.3, Neutrophils # (Auto) 10.4 H, Lymphocytes # (Auto) 0.8 L, Monocytes # (Auto) 0.4, Eosinophils # (Auto) 0.1, Basophils # (Auto) 0.0, Calcium Level 7.6 L 01/19/17 10:42 Calcium Level 7.3 L 01/19/17 13:30 Calcium Level 8.0 L, Total Creatine Kinase 723 H Microbiology Microbiology 01/19/17 Blood Culture, Received Pending 01/19/17 Blood Culture, Received Pending 01/19/17 MRSA Screen, Received Pending 01/19/17 Urine Culture, Received Pending 01/19/17 Gram Stain, Received Pending 01/19/17 Wound Culture, Received Pending GME ATTESTATION GME ATTESTATION My preceptor for this patient encounter was Dr. Clayton Waite, and was physically present in the building during the encounter and was fully available. As needed , all aspects of the patient interview, examination, medical decision making process, and medical care plan development were reviewed and approved by the preceptor. Preceptor is aware and concurs with the plan as stated in the body of this note and will attest to such by his/her cosignature. TERRENCE JOHNSON OGME-1 Jan 19, 2017 22:07
[2017-01-19 22:34] LABS: BASO % 0.3 % (0.0-1.0); EOS # 0.1 K/mm3 (0.0-0.50); EOS % 0.8 % (0.0-3.0); LARGE UNSTAINED CELL # 0.1 K/mm3 (0.0-0.4); LARGE UNSTAINED CELL % 1.2 % (0.0-4.0); LYMPH # 0.6 K/mm3 (1.5-4.5); LYMPH % 4.4 % (24.0-44.0); MEAN CORPUSCULAR HEMOGLOBIN 27.8 pg (27.0-33.0); MEAN CORPUSCULAR HGB CONC 30.3 g/dl (32.0-36.5); MEAN CORPUSCULAR VOLUME 91.7 fl (80.0-96.0); MONO # 0.5 K/mm3 (0.0-0.8); MONO % 4.9 % (0.0-5.0); NEUTROPHILS # 9.7 K/mm3 (1.8-7.7); NEUTROPHILS % 88.5 % (36.0-66.0); PLATELET COUNT, AUTOMATED 273 k/mm3 (150-450); RED CELL DISTRIBUTION WIDTH 16.8 % (11.5-14.5)
[2017-01-19 22:36] LABS: VENOUS BASE EXCESS -5.3 (-2.0-2.0); VENOUS O2 SATURATION 93.4 % (60.0-80.0); VENOUS PARTIAL PRESSURE CO2 36.2 mmHg (38.0-50.0); VENOUS PARTIAL PRESSURE O2 71.8 mmHg (30.0-50.0); VENOUS TOTAL CO2 20.7 MEQ/L (24.0-28.0)
[2017-01-19] MEDS: NOREPINEPHRINE BITARTRATE 8 MG in D5W 500 ML IV SCH (23:10)
[2017-01-19 23:22] LABS: ALBUMIN 2.1 GM/DL (3.2-5.2); ALBUMIN/GLOBULIN RATIO 0.54 (1.00-1.93); BILIRUBIN,TOTAL 0.5 MG/DL (0.2-1.0); CALCIUM LEVEL 7.1 MG/DL (8.8-10.2); CREATININE FOR GFR 2.31 MG/DL (0.70-1.30); GLOMERULAR FILTRATION RATE 30.9 (>49); POTASSIUM SERUM 4.4 MEQ/L (3.5-5.1)
[2017-01-20] VITALS (26 sets, daily range): BP systolic 89–133; BP diastolic 49–83
[2017-01-20] MEDS ORDERED: LEVEMIR (INSULIN DETEMIR) 1 UNITS/0.01ML SC ONE (00:45)
[2017-01-20] MEDS: VANCOMYCIN HCL 750 MG, VIAL MATE ADAPTER 1 EACH in D5W 250 ML IV SCH ×2 (01:05→12:55)
[2017-01-20] MEDS: INSULIN IV RATE CHANGE DOCUMENTATION ML/HR XX SCH ×5 (01:15→08:07)
[2017-01-20] MEDS: PIPERACILLIN/TAZOBACTAM SOD 2.25 GM in D5W MINI-BAG PLUS 50 ML IV SCH ×4 (02:22→20:51)
[2017-01-20] MEDS: NS 1,000 ML IV SCH (04:05)
[2017-01-20 04:53] LABS: BASO % 0.3 % (0.0-1.0); EOS # 0.1 K/mm3 (0.0-0.50); EOS % 1.4 % (0.0-3.0); LARGE UNSTAINED CELL # 0.1 K/mm3 (0.0-0.4); LYMPH # 0.7 K/mm3 (1.5-4.5); MEAN CORPUSCULAR HEMOGLOBIN 27.8 pg (27.0-33.0); MEAN CORPUSCULAR HGB CONC 31.5 g/dl (32.0-36.5); MEAN CORPUSCULAR VOLUME 88.3 fl (80.0-96.0); MONO # 0.3 K/mm3 (0.0-0.8); MONO % 4.1 % (0.0-5.0); NEUTROPHILS # 6.5 K/mm3 (1.8-7.7); PLATELET COUNT, AUTOMATED 250 k/mm3 (150-450); RED CELL DISTRIBUTION WIDTH 17.2 % (11.5-14.5); WHITE BLOOD COUNT 7.7 K/mm3 (4.0-10.0)
[2017-01-20 04:58] LABS: INR 2.53
[2017-01-20 05:13] LABS: ALBUMIN/GLOBULIN RATIO 0.51 (1.00-1.93); BILIRUBIN,TOTAL 0.5 MG/DL (0.2-1.0); CALCIUM LEVEL 7.4 MG/DL (8.8-10.2); CREATININE FOR GFR 2.27 MG/DL (0.70-1.30); GLOMERULAR FILTRATION RATE 31.5 (>49); MAGNESIUM LEVEL 2.3 MG/DL (1.8-2.4); POTASSIUM SERUM 3.7 MEQ/L (3.5-5.1); TOTAL PROTEIN 5.9 GM/DL (6.4-8.2)
[2017-01-20] MEDS ORDERED: POTASSIUM CHLORIDE 10 MEQ SR TABLET PO ONE (06:30)
[2017-01-20] MEDS: ADVAIR DISKUS 500/50 INH PWD INH SCH ×2 (07:11→19:30)
[2017-01-20] MEDS: HumaLOG INSULIN (NovoLOG) PER UNIT SC SCH ×4 (07:30→21:28)
[2017-01-20] MEDS: ALLOPURINOL 300 MG TAB PO SCH (08:53)
[2017-01-20] MEDS: SENOKOT S TAB PO SCH ×2 (08:53→21:27)
[2017-01-20] MEDS: ATORVASTATIN 20 MG TAB PO SCH (08:53)
[2017-01-20] MEDS: OMEPRAZOLE 20 MG CAP PO SCH (08:53)
[2017-01-20] MEDS: LEVEMIR (INSULIN DETEMIR) 1 UNITS/0.01ML SC SCH ×2 (08:54→21:29)
--- NOTE | 2017-01-20 08:58 | ECGEPIP ---
Stationary ECG Study [facility] Test Date: 2017-01-19 Pat Name: KYLER EPPS Department: Room: [place] [address] Gender: M [employer] Sergeant: KEHINDE : [id number] Requested By: TUAN SAHNI Order Number: [id number] Reading MD: Cherie Willard Measurements Intervals [place] Rate: 87 P: NV: 0 QRS: -43 QRSD: 125 T: 49 QT: 425 QTc: 513 Interpretive Statements ATRIAL FIBRILLATION MARKED LEFT AXIS DEVIATION MODERATE INTRAVENTRICULAR CONDUCTION DELAY MODERATE ST DEPRESSION - CONSIDER ISCHEMIA PROLONGED QT INTERVAL NO PRIOR Electronically Signed On 01-20-2017 8:58:20 EDT by Cherie Willard
[2017-01-20] MEDS: NYSTATIN 100,000 UNITS/GM TOPICAL PWD 15 GM TOP SCH ×2 (10:23→21:29)
[2017-01-20] MEDS: FLUTICASONE PROP 0.05% NASAL SPRAY 16 GM (FLONASE) SCH (10:23)
[2017-01-20] MEDS ORDERED: WARFARIN SOD 5 MG TAB PO ONE (12:30)
--- NOTE | 2017-01-20 12:48 | REP ---
Clinical: Chronic renal failure. Trauma. Technique: Real time stephens scale show examination using curved array transducer. Findings: The kidneys demonstrate increased central sinus fat and cortical thinning compatible with chronic medical renal disease. Kidneys are otherwise normal in reniform shape without hydronephrosis, nephrolithiasis, cystic or renal mass lesion. Right kidney measures 14.9 x 6.0 x 5.0 cm. Left kidney measures 14.7 x 4.7 x 6.4 cm. Mckeon catheter in collapsed bladder. Impression: Evidence for chronic medical renal disease. No hydronephrosis. Signed by Taran Oquendo MD 01/20/2017 12:39 P
--- NOTE | 2017-01-20 18:13 | IPNPDOC ---
Subjective Date Seen The patient was seen on 01/20/17. Subjective Chief Complaint/HPI The patient is a 61-year-old male admitted with a reason for visit of Sepsis/ Hyperglycemia. Patient seen and examined at bedside. States he feels better. Denies dizziness, headache, chest pain, SOB, nausea, vomiting, abdominal pain, diarrhea, constipation. Admits to peripheral diabetic neuropathy/numbness/tingling in his R foot > L foot. Is eating and drinking fine. Events since last encounter Overnight, patient had gone back into DKA and his anion gap opened at 17, his fasting glucose went up to 552. Patient had to be restarted on the insulin drip and was continued on IVF NS @ 150 cc's/hr. Later, his drip was stopped when the anion gap closed. Anion gap at 22:20 last night was 13 and 4:37 today was 10. Patient's levophed was decreased to 2.5 mcgs. General: Denies: Chills, Fatigue Constitutional: Denies: Chills, Fever, Weakness Eyes: Reports: Other (denies blurred vision) ENT: Denies: Head Aches Skin: Reports: Nail Changes, Other (admits to lower extremity leg and foot wounds bilaterally) Pulmonary: Denies: Cough, Dyspnea Cardiovascular: Denies: Chest Pain, Palpitations Gastrointestinal: Denies: Abdominal Pain, Constipation, Diarrhea, Hematochezia , Nausea, Vomiting Genitourinary: Denies: Dysuria, Hematuria Endocrine: Denies: Cold Intolerance, Heat Intolerance Musculoskeletal: Reports: Back Pain (-12/08) Neurological: Reports: Numbness (in his R foot > L foot), Denies: Confusion, Weakness Psych: Reports: Mood Normal Objective Physical Examination General Exam: Positive: Alert, Cooperative, No Acute Distress, Other (Obese but pleasant male. Very poor hygiene.) Eye Exam: Positive: Conjunctiva & lids normal, PERRLA, Negative: Sclera icteric ENT Exam: Positive: Atraumatic Neck Exam: Positive: Supple, Negative: JVD, Lymphadenopathy, thyromegaly Chest Exam: Positive: Clear to auscultation, Normal air movement, Negative: Rales, Rhonchi, Wheezing Heart Exam: Positive: Irregular Rhythm, Normal S1, Normal S2, Other (very distant heart sounds due to obese body habitus), Rate Normal, Negative: Gallops, Murmurs, Rubs Telemetry: Positive: Atrial fibrillation Abdomen Exam: Positive: Normal bowel sounds, Soft, Negative: Hepatospenomegaly, Mass, Tenderness Male Exam: Positive: Erythema (On inspection, inguinal/inner thigh area, and scrotal area had erythema and fungal rash presentation), Negative: Discharge Extremity Exam: Positive: Other (candidiasis of bilateral groin, LLE erythema and cellulitis to the L heel and pitting edema. No crepitus noted. RLE edema. Venous stasis ulcers of bilateral lower extremities. Amputated R 2nd toe and L 2nd and 3rd toes. Poor foot hygiene with discoloration/onychomycoses in toenails. R distal foot has numbness/tingling > L due to diabetic neuropathy ( as per patient)) Skin Exam: Positive: Other skin issue (LLE cellulitis and bilateral venous stasis ulcers/dermatitis of lower extremities, pressure ulcers of heels, hyperthickened discolored toenails with onychomycoses, very poor foot hygiene bilaterally. 2nd distal R toe amputated. Distal 2nd and 3rd L toe amputated. Some pitting edema noted in LLE and some edema noted in RLE. Warm, dry, and cellulitic lower extremities bilaterally.), Rash Neuro Exam: Positive: Normal Speech, Other (Sensation not intact in RLE.) Psych Exam: Positive: Memory Intact, Mental status NL, Mood NL, Oriented x 3 RAD Interpretation STUDY: Renal U/S 01/20: Evidence for chronic medical renal disease. No hydronephrosis, nephrolithiasis, cystic, or renal mass lesion. Lacy catheter in collapsed bladder. Assessment /Plan Assessment 61 yo M with a PMH of IDDM type 2, CKD Stage III-IV with baseline Cr of ~2, chronic atrial fibrillation on warfarin, COPD, CHF with preserved systolic EF 60 %, gout, HTN, HLD, vitamin D deficiency, allergic rhinitis, GERD, cellulitis of the lower extremities, venous stasis ulcer of the lower extremities, being admitted via transfer from [facility] for DKA and severe sepsis. Problems (1) Severe sepsis Status: Acute Response to Treatment: Stable, Improving Discussed With: Patient Problem Specific Plan: Monitor Clinically, Repeat Labs Problem Text: Patient with severe hypotension with BP in 60s systolic and has gone down to as low as 20s diastolic, leukocytosis with WBC 13.7, and elevated RR>20. Central line is in SVC. Patient's levophed was decreased down to 2.5 mcgs this AM and his CVP was 14, and eventually, around 4-5 PM, it was discontinued. Patient's most recent BP was 111/52. CVP was still 14 around 1300. Patient was given a large amount of IVF: 54568.5 mLs yesterday until midnight. He had a positive balance of 9573.5 mLs. Patient will most likely urinate this fluid out and I anticipate that the CVP will go back down to normal range. Patient had gone back into DKA yesterday evening with AG of 17 and blood glucose level of 552 and an insulin drip as well as NS was continued at 150 cc's /hr. These IVF were discontinued this morning after the AG had closed at 10 and the patient's CVP was found to be 14. BPs have been soft most of the day but much improved from prior: BPs have been ranging 80s-100s/40s-50s most of the day , recently they are running 90s-100s/40s-50s. If necessary, we will continue IVF and pressor support as necessary until patient is hemodynamically stable. For now, have d/ce'd levophed and IVF due to acceptable pressures and elevated CVP of 14. Most recent lactic acid was 1.2 and WNL. Have ordered wound cx and gram stain, blood cx, urinalysis, urine cx, MRSA screen: gram stain shows no cells and no organisms, wound cx are pending, urine cx show no growth so far, MRSA screen was (-), and blood cx showed NGTD x 24 hours. Continue to monitor CBCs, BMPs. Continue treating with broad spectrum antibiotics: vancomycin and zosyn until any source of infection identified to narrow the spectrum. (2) Sepsis Status: Acute Response to Treatment: Progressing Discussed With: Patient Problem Specific Plan: Consult Specialist, Monitor Clinically, Repeat Labs Problem Text: Still has SVC central line on L anterior chest. Have discontinued pressor support and IVF at this time due to acceptable pressures and elevated CVP of 14. Continue to check on CBC, BMP, and lactic acid levels. Follow up wound and blood cx when available. (3) Hypotension Status: Acute Response to Treatment: Uncontrolled Discussed With: Patient Problem Specific Plan: Monitor Clinically, Repeat Labs Problem Text: Hold all BP medications at this time. D/ce'd pressor support and IVF. Stopped levophed and NS @ 150 mLs/hr. (4) DKA (diabetic ketoacidosis) Status: Acute Response to Treatment: Improving Discussed With: Patient Problem Specific Plan: Monitor Clinically, Repeat Labs Problem Text: Patient went back into DKA yesterday evening with anion gap of 17 and fasting glucose of 552. Had to restart insulin drip and and NS IV fluids was continued @ 150 cc's/hr. However, gap closed early this morning and was 10. We discontinued the insulin drip and IVF this morning. We transitioned back to subcutaneous insulin. Patient was given a regular diet and tolerated it without any problems. Patient is placed now on regular long-acting insulin and AC and HS sliding scale coverage. Most recent glucose was 392 at 4:58. Continue to monitor BMP and supportive care. Continue current management with long-acting regular insulin coverage and sliding scale coverage. (5) Diabetes Status: Chronic Response to Treatment: Worse, Uncontrolled Discussed With: Patient Problem Specific Plan: Monitor Clinically, Repeat Labs Problem Text: HgbA1C of 12.6 and severely uncontrolled. Will continue to treat with long-acting insulin and AC and HS sliding scale coverage. (6) CKD (chronic kidney disease) Status: Acute Response to Treatment: Progressing Discussed With: Patient Problem Specific Plan: Monitor Clinically, Repeat Labs Problem Text: Baseline Cr is ~2 according to records. BUN and Cr have been trending down and Cr close to baseline now. BUN was 45 and Cr was 2.27 down from 51 and 2.31. Patient producing urine. Will call [facility] to find out baseline. Have ordered urinalysis, urine culture, and renal ultrasound. Urinalysis was unremarkable. Follow up urine cx when available. Renal U/S showed chronic medical renal disease and no hydronephrosis. Will hold off on Nephrology consult at this point in time. (7) Afib Status: Chronic Response to Treatment: Uncontrolled Discussed With: Patient Problem Specific Plan: Monitor Clinically, Repeat Labs Problem Text: INR was 2.53 and therapeutic. Will start back patient's coumadin regimen of 5 mg and 7.5 mg every other day. Will continue to aim for rate control and restart anticoagulation. Will keeping holding any hypertensive medications and beta blockers at this time due to soft blood pressures. (8) COPD (chronic obstructive pulmonary disease) Status: Chronic Response to Treatment: Stable Discussed With: Patient Problem Specific Plan: Monitor Clinically Problem Text: Satting in 90s on room air. RR had been still running >20s today though. Continue to monitor respiratory status. Patient does not exhibit accessory muscle usage or c/o difficulty breathing. Will continue home medications: advair diskus and nebulizer duonebs in hospital. (9) CHF (congestive heart failure) Status: Chronic Response to Treatment: Stable Discussed With: Patient Problem Specific Plan: Monitor Clinically, Repeat Labs Problem Text: Monitor for SOB and lower extremity edema. Holding lasix for now due to low BP. SUSAN done did not show systolic dysfunction. SUSAN/Echocardiogram on 01/19/17 showed normal systolic function/LVEF of 60%, normal LV wall thickness, moderately enlarged L atrium at 5.3 cm. The R atrium and R ventricle were not well visualized. The atrial septum was not well visualized. Normal aortic root. No pericardial effusion. Mildly calcified aortic valve, leaflet excursion appeared to be normal. Mildly calcified mitral annulus, the anterior mitral valve leaflet was not well visualized. Tricuspid valve, pulmonic valve, and proximal pulmonary artery branches were not well visualized. The inferior vena cava was dilated, central venous pressure might be elevated. Technically limited study due to poor acoustic window. Probably normal global left ventricular systolic function. No significant mitral regurgitation detected. Trace tricuspid regurgitation with a normal calculated pulmonary artery systolic pressure. Patient appeared to be in atrial fibrillation during the test. (10) Gout Status: Chronic Response to Treatment: Stable Discussed With: Patient Problem Specific Plan: Monitor Clinically Problem Text: Continue allopurinol. (11) HTN (hypertension) Status: Chronic Response to Treatment: Worse Discussed With: Patient Problem Specific Plan: Monitor Clinically Problem Text: Patient's BP is still low at times and on the lower side. Will hold off all BP medications at the moment. Restart when stable and BPs high. (12) Dyslipidemia Status: Chronic Response to Treatment: Stable Discussed With: Patient Problem Specific Plan: Monitor Clinically Problem Text: Continue atorvastatin. (13) GERD (gastroesophageal reflux disease) Status: Chronic Response to Treatment: Stable Discussed With: Patient Problem Specific Plan: Monitor Clinically Problem Text: Continue omeprazole. (14) Fall Status: Acute Discussed With: Patient Problem Specific Plan: Monitor Clinically, Repeat Labs, Repeat Tests Problem Text: Will continue to monitor labs for any abnormalities like anemia. Will get physical therapy/occupational therapy, and PFS consult. Will treat with PRN pain medication. (15) Cellulitis Status: Acute Response to Treatment: Uncontrolled Discussed With: Nurse, Patient Problem Specific Plan: Consult Specialist, Monitor Clinically Problem Text: Patient has wounds in feet and cellulitis in lower extremities. Podiatry has been consulted. Consulted and discussed case with Dr. Petersen. Seems more of venous stasis ulcers and dermatitis. Please follow Dr. Zambrano' s recommendations for wound care. Please see his note for recommendations regarding therapy on the foot wounds. Continue nystatin, fluconazole, and broad spectrum antibiotics: vancomycin and zosyn. Plan/VTE VTE Prophylaxis Ordered?: Yes (restarted daily home coumadin due to therapeutic INR. Will monitor PT/INRs daily. Hold if supratherapeutic. Start if subtherapeutic as well. ) Plan/Urinary Catheter Urinary Catheter: Other Catheter: (has lacy cathether in) Reason for insertion/continuin: Other-document below (Patient with CKD Stage 3- 4. Monitoring I's/O's. Preventing urinary obstruction. ) Plan IVF: Continue Diet: Continue Current Activity: Bedrest Therapy: PT, OT, Wound Consult Pt and Family Services: Other PFS (Please evaluate for home safety and health. ) Medications: Change to PO Diagnostics: Check Labs, Repeat Labs in AM, Obtain Cultures, Ultrasound Anticipated Discharge: Home With Services Disposition DVT ppx: restart home dose of coumadin 5 mg, then 7.5 mg alternating days. Immunizations as per protocol. VS, I&O, 24H, Fishbone Vital Signs/I&O Vital Signs Date Time Temp Pulse Resp B/P Pulse Ox O2 Delivery O2 Flow Rate FiO2 01/20/17 14:00 112/54 01/20/17 12:00 98.7 25 20 97 01/20/17 08:00 Room Air 01/20/17 03:30 2.0 I&O- Last 24 Hours up to 6 AM 01/20/17 05:59 Intake Total 6544.5 ml Output Total 2865 ml Balance 3679.5 ml Laboratory Data 24H LABS Laboratory Tests 2 01/19/17 20:00: Bedside Glucose (Misc Panel) 487H 01/19/17 22:20: Blood Urea Nitrogen 51H, Creatinine 2.31H, Sodium Level 134L, Potassium Level 4.4, Chloride Level 101, Carbon Dioxide Level 20L, Calcium Level 7.1L, Aspartate Amino Transf (AST/SGOT) 27, Alanine Aminotransferase (ALT/SGPT) 15, Alkaline Phosphatase 108, Total Bilirubin 0.5, Total Protein 6.0L, Albumin 2.1L , Albumin/Globulin Ratio 0.54L, Anion Gap 13, White Blood Count 11.0H, Red Blood Count 3.99L, Hemoglobin 11.1L, Hematocrit 36.6L, Mean Corpuscular Volume 91.7, Mean Corpuscular Hemoglobin 27.8, Mean Corpuscular Hemoglobin Concent 30.3L, Red Cell Distribution Width 16.8H, Platelet Count 273, Neutrophils (%) ( Auto) 88.5H, Lymphocytes (%) (Auto) 4.4L, Monocytes (%) (Auto) 4.9, Eosinophils (%) (Auto) 0.8, Basophils (%) (Auto) 0.3, Neutrophils # (Auto) 9.7H, Lymphocytes # (Auto) 0.6L, Monocytes # (Auto) 0.5, Eosinophils # (Auto) 0.1, Basophils # (Auto) 0.0, Blood Gas Bicarbonate Standard 20.0, C-Reactive Protein , Quantitative 5.26H, Glomerular Filtration Rate 30.9L, Lactic Acid Level 1.2, Large Unclassified Cells # 0.1, Large Unclassified Cells % 1.2, Venous Blood Base Excess -5.3L, Venous Blood pH 7.352, Venous Blood Partial Pressure CO2 36.2L, Venous Blood Partial Pressure O2 71.8H, Venous Blood Total Carbon Dioxide 20.7L, Venous Blood HCO3 19.6L, Venous Blood Oxygen Saturation 93.4H 01/19/17 23:07: Bedside Glucose (Misc Panel) 547*H 01/19/17 23:29: Urine Amorphous Sediment , Urine Appearance HAZY, Urine Color STRAW, Urine pH 5.0, Urine Specific [place] 1.016, Urine Protein NEGATIVE, Urine Glucose (UA) 3+ H, Urine Ketones 1+H, Urine Urobilinogen 0.2, Urine Bilirubin NEGATIVE, Urine Leukocyte Esterase NEGATIVE, Urine Bacteria (Auto) 1+H, Urine Blood 2+H, Urine Calcium Carbonate Cryst(Auto) , Urine Calcium Oxalate Cryst (Auto) , Urine Calcium Phosphate Cristin (Auto) , Urine Cellular Casts , Urine Cystine Crystals , Urine Granular Casts (Auto) , Urine Hyaline Casts (Auto) 0, Urine Leucine Crystals , Urine Mucus (Auto) SMALL, Urine Nitrite NEGATIVE, Urine Oval Fat Bodies (Auto) , Urine RBC (Auto) 3, Urine Renal Epithelial Cells , Urine Sperm ( Auto) , Urine Squamous Epithelial Cells 0, Urine Transitional Epithelial Cells , Urine Trichomonas (Auto) , Urine Triple Phosphate Cryst (Auto) , Urine Tyrosine Crystals , Urine Uric Acid Crystals (Auto) , Urine WBC (Auto) 2, Urine Waxy Casts (Auto) , Urine Yeast-Like Cells (Auto) 01/20/17 00:12: Bedside Glucose (Misc Panel) 470H 01/20/17 01:03: Bedside Glucose (Misc Panel) 502*H 01/20/17 01:24: Bedside Glucose Confirm (Misc) 482*H 01/20/17 02:56: Bedside Glucose (Misc Panel) 446H 01/20/17 04:37: Activated Partial Thromboplast Time 46.0H, Blood Urea Nitrogen 45H, Creatinine 2.27H, Sodium Level 139, Potassium Level 3.7, Chloride Level 105, Carbon Dioxide Level 24, Calcium Level 7.4L, Aspartate Amino Transf (AST/SGOT) 23, Alanine Aminotransferase (ALT/SGPT) 13, Alkaline Phosphatase 78, Total Bilirubin 0.5, Total Protein 5.9L, Albumin 2.0L, Albumin/Globulin Ratio 0.51L, Anion Gap 10, White Blood Count 7.7, Red Blood Count 3.85L, Hemoglobin 10.7L, Hematocrit 34.0L, Mean Corpuscular Volume 88.3, Mean Corpuscular Hemoglobin 27.8 , Mean Corpuscular Hemoglobin Concent 31.5L, Red Cell Distribution Width 17.2H, Platelet Count 250, Neutrophils (%) (Auto) 85.0H, Lymphocytes (%) (Auto) 8.0L, Monocytes (%) (Auto) 4.1, Eosinophils (%) (Auto) 1.4, Basophils (%) (Auto) 0.3, Neutrophils # (Auto) 6.5, Lymphocytes # (Auto) 0.7L, Monocytes # (Auto) 0.3, Eosinophils # (Auto) 0.1, Basophils # (Auto) 0.0, Glomerular Filtration Rate 31.5L, Large Unclassified Cells # 0.1, Large Unclassified Cells % 1.0, Magnesium Level 2.3, Prothromb Time International Ratio 2.53, Prothrombin Time 27.3H 01/20/17 05:07: Bedside Glucose (Misc Panel) 214H 01/20/17 05:51: Bedside Glucose (Misc Panel) 200H 01/20/17 08:02: Bedside Glucose (Misc Panel) 138H 01/20/17 08:56: Bedside Glucose (Misc Panel) 197H 01/20/17 11:58: Bedside Glucose (Misc Panel) 255H 01/20/17 12:06: Vancomycin Level Trough 14.0 01/20/17 16:58: Bedside Glucose (Misc Panel) 392H CBC/BMP Laboratory Tests 01/19/17 22:20 Calcium Level 7.1 L, Aspartate Amino Transf (AST/SGOT) 27, Alanine Aminotransferase (ALT/SGPT) 15, Alkaline Phosphatase 108, Total Bilirubin 0.5, Total Protein 6.0 L, Albumin 2.1 L, Red Blood Count 3.99 L, Mean Corpuscular Volume 91.7, Mean Corpuscular Hemoglobin 27.8, Mean Corpuscular Hemoglobin Concent 30.3 L, Red Cell Distribution Width 16.8 H, Neutrophils (%) (Auto) 88.5 H, Lymphocytes (%) (Auto) 4.4 L, Monocytes (%) (Auto) 4.9, Eosinophils (%) (Auto ) 0.8, Basophils (%) (Auto) 0.3, Neutrophils # (Auto) 9.7 H, Lymphocytes # (Auto ) 0.6 L, Monocytes # (Auto) 0.5, Eosinophils # (Auto) 0.1, Basophils # (Auto) 0.0 01/20/17 04:37 Calcium Level 7.4 L, Aspartate Amino Transf (AST/SGOT) 23, Alanine Aminotransferase (ALT/SGPT) 13, Alkaline Phosphatase 78, Total Bilirubin 0.5, Total Protein 5.9 L, Albumin 2.0 L, Red Blood Count 3.85 L, Mean Corpuscular Volume 88.3, Mean Corpuscular Hemoglobin 27.8, Mean Corpuscular Hemoglobin Concent 31.5 L, Red Cell Distribution Width 17.2 H, Neutrophils (%) (Auto) 85.0 H, Lymphocytes (%) (Auto) 8.0 L, Monocytes (%) (Auto) 4.1, Eosinophils (%) (Auto ) 1.4, Basophils (%) (Auto) 0.3, Neutrophils # (Auto) 6.5, Lymphocytes # (Auto) 0.7 L, Monocytes # (Auto) 0.3, Eosinophils # (Auto) 0.1, Basophils # (Auto) 0.0 Microbiology Microbiology 01/19/17 Blood Culture - Preliminary, Resulted No growth after 24 hours . All specim... 01/19/17 Blood Culture - Preliminary, Resulted No growth after 24 hours . All specim... 01/19/17 MRSA Screen - Final, Complete 01/19/17 Urine Culture, Received Pending 01/19/17 Urine Culture - Final, Complete 01/19/17 Gram Stain - Final, Resulted 01/19/17 Wound Culture, Resulted Pending GME ATTESTATION GME ATTESTATION My preceptor for this patient encounter was Dr. Clayton Waite, and was physically present in the building during the encounter and was fully available. As needed , all aspects of the patient interview, examination, medical decision making process, and medical care plan development were reviewed and approved by the preceptor. Preceptor is aware and concurs with the plan as stated in the body of this note and will attest to such by his/her cosignature. TERRENCE JOHNSON OGME-1 Jan 20, 2017 18:13
--- NOTE | 2017-01-20 21:20 | IPN ---
DATE: 01/20/2017 Patient is slightly confused; however, he states that he stepped on a bolt on his right foot several years ago, has had an ulcer form there. He has been taking care of this ulcer since that time. He also has a history of some amputations on his foot, namely the second toe bilateral, performed in [place]. He states that he basically takes care of his ulcers himself and sees his medical doctor for care, who orders coban and dressing supplies for the patient, who applies them himself. He is seen today for evaluation. HOME MEDICATIONS: Include: - allopurinol 300 mg daily - atenolol 100 mg daily - atorvastatin 40 mg daily - clonidine 0.3 mg - diltiazem ER 360 mg daily - vitamin D 50,000 units weekly - fluticasone two sprays daily - furosemide 80 mg daily - insulin metformin 1000 mg by mouth - omeprazole 20 mg daily - potassium 40 mEq by mouth twice a day - Advair 500/50 mcg one puff twice a day - valsartan/hydrochlorothiazide 320/25 one tablet daily - warfarin 5 mg and 7.5 mg every other day PAST MEDICAL HISTORY: 1. Insulin-dependent diabetes. 2. Chronic atrial fibrillation on warfarin. 3. Chronic obstructive pulmonary disease. 4. Sleep apnea. 5. Gout. 6. Hypertension. 7. Morbid obesity. 8. Hyperlipidemia. 9. Vitamin D deficiency. 10. Allergic rhinitis. 11. Gastroesophageal reflux disease (GERD). 12. Venous stasis ulcerations of the lower extremities. Evaluation of the patient's foot reveals compressive dressings on both legs with protective foam boots. The boots and the dressings were removed today, revealing a hyperkeratotic ulcerative region on the plantar surface of the right foot. After appropriate informed consent, appropriate time-out, the ulcer was debrided on the plantar surface of the right foot through to the level of the subcutaneous tissues. The ulcer measures 2.5 cm from medial to lateral, 1.5 cm from dorsal to plantar and 7 mm in depth. Patient has an ulceration on the top of his left foot measuring 1 cm x 1.5 cm. Patient has a large ulceration of the posterior aspect of his left leg measuring 6 cm x 4 cm and smaller lateral ulcerations, one anteriorly measuring 1.5 cm x 1 cm, and three small lateral ulcerations in total, measuring 4 cm x 1.5 cm. These ulcerations are superficial and draining, but no purulence was noted. Patient has venous stasis lichenifications of the lower extremities. His pedal pulses could not be appreciated. There is no digital, foot or lower leg hair noted. Chronic edema is noted of the lower extremities. LABORATORY STUDIES: Were reviewed, revealing white count today of 7.7, on admission 13.7. C-reactive protein is 5.26. X-rays were reviewed revealing amputation of the distal aspect of the second toe bilateral. Patient has some ulcerative changes of the left hallux; however, this appears to be chronic and not acute osteomyelitis. No foreign bodies were identified; however, on debridement of his ulcer, numerous dog hairs were expressed from the patient's ulcer and his ulcer was cultured after debridement. PLAN: Debridement of right ulcer, as described. Orders written for Silvadene and a dressing to be applied twice a day to the patient's right leg. Patient has Aleve and dressings ordered for his venous stasis ulcerations from Dr. Zambrano as well as compressive dressings to be applied. Patient's antibiotics can be tailored according to his culture and sensitivity. His questions are answered.
[2017-01-20] MEDS: POTASSIUM CHLORIDE 10 MEQ SR TABLET PO SCH (21:27)
[2017-01-20 21:35] LABS: CALCIUM LEVEL 7.5 MG/DL (8.8-10.2); CREATININE FOR GFR 1.84 MG/DL (0.70-1.30); GLOMERULAR FILTRATION RATE 40.1 (>49); POTASSIUM SERUM 3.9 MEQ/L (3.5-5.1)
[2017-01-20] MEDS: NOREPINEPHRINE BITARTRATE 8 MG in D5W 500 ML IV SCH (23:00)
[2017-01-21] VITALS (12 sets, daily range): BP systolic 119–145; BP diastolic 57–86; O2SAT 98
[2017-01-21] MEDS: FLUCONAZOLE 200 MG in APPROPRIATE DILUENT 1 EA IV SCH (00:23)
[2017-01-21] MEDS: VANCOMYCIN HCL 750 MG, VIAL MATE ADAPTER 1 EACH in D5W 250 ML IV SCH ×2 (01:40→13:05)
[2017-01-21] MEDS: PIPERACILLIN/TAZOBACTAM SOD 2.25 GM in D5W MINI-BAG PLUS 50 ML IV SCH ×4 (02:56→19:34)
[2017-01-21 04:59] LABS: BASO % 0.7 % (0.0-1.0); EOS # 0.3 K/mm3 (0.0-0.50); LARGE UNSTAINED CELL # 0.1 K/mm3 (0.0-0.4); LYMPH # 0.7 K/mm3 (1.5-4.5); LYMPH % 10.6 % (24.0-44.0); MEAN CORPUSCULAR HGB CONC 30.1 g/dl (32.0-36.5); MEAN CORPUSCULAR VOLUME 89.6 fl (80.0-96.0); MONO # 0.3 K/mm3 (0.0-0.8); MONO % 4.3 % (0.0-5.0); NEUTROPHILS # 4.5 K/mm3 (1.8-7.7); NEUTROPHILS % 78.4 % (36.0-66.0); PLATELET COUNT, AUTOMATED 216 k/mm3 (150-450); RED CELL DISTRIBUTION WIDTH 17.4 % (11.5-14.5); WHITE BLOOD COUNT 5.7 K/mm3 (4.0-10.0)
[2017-01-21 05:05] LABS: INR 1.79
[2017-01-21 05:23] LABS: ALBUMIN/GLOBULIN RATIO 0.48 (1.00-1.93); BILIRUBIN,TOTAL 0.5 MG/DL (0.2-1.0); CALCIUM LEVEL 7.6 MG/DL (8.8-10.2); CREATININE FOR GFR 1.52 MG/DL (0.70-1.30); MAGNESIUM LEVEL 2.2 MG/DL (1.8-2.4); POTASSIUM SERUM 4.1 MEQ/L (3.5-5.1); TOTAL PROTEIN 6.2 GM/DL (6.4-8.2)
[2017-01-21] MEDS: ADVAIR DISKUS 500/50 INH PWD INH SCH ×2 (07:28→20:20)
[2017-01-21] MEDS: HumaLOG INSULIN (NovoLOG) PER UNIT SC SCH ×4 (07:43→21:00)
--- NOTE | 2017-01-21 07:52 | IPNPDOC ---
Subjective Date Seen The patient was seen on 01/21/17. Subjective Chief Complaint/HPI The patient is a 61-year-old male admitted with a reason for visit of Sepsis/ Hyperglycemia. Events since last encounter Right foot ulcer debridement at bedside. Off pressers. General: Denies: Chills, Fatigue, Malaise, Night Sweats, Normal Appetite, Other Symptoms, ROS Unobtainable Constitutional: Denies: Chills, Fatigue, Fever, Lethargy, Malaise, Night Sweats , Other, Weakness, Weight Loss Eyes: Denies: Conjunctivae inflammation, Eyelid inflammation, Other, Pain, Redness, Vision change ENT: Denies: Dysphagia, Ear Pain, Epistaxis, Head Aches, Other Symptoms, Post Nasal Drip, Sinus Congestion, Sore Throat Skin: Denies: Breakdown, Bruising, Dry, Itching, Jaundice, Lesions, Nail Changes, Other, Rash Pulmonary: Reports: Dyspnea, Denies: Cough, Other Symptoms, Pleuritic Chest Pain Cardiovascular: Denies: Chest Pain, Edema, Lt Headedness, Orthopnea, Other Symptoms, Palpitations, Paroxysmal Noc. Dyspnea Gastrointestinal: Denies: Abdominal Pain, Constipation, Diarrhea, Hematochezia , Melena, Nausea, Other Symptoms, Vomiting Objective Physical Examination General Exam: Positive: Alert, Cooperative, No Acute Distress, Other (poor hygiene, dissheveled on arrival) Eye Exam: Positive: Conjunctiva & lids normal, EOMI, PERRLA, Negative: Sclera icteric ENT Exam: Positive: Atraumatic, Mucous membr. moist/pink Neck Exam: Positive: Supple, Negative: JVD, Lymphadenopathy, thyromegaly Chest Exam: Positive: Clear to auscultation, Normal air movement, Negative: Rales, Rhonchi, Wheezing Heart Exam: Positive: Irregular Rhythm, Normal S1, Normal S2, Other (very distant heart sounds due to obese body habitus), Rate Normal, Negative: Gallops, Murmurs, Rubs Telemetry: Positive: Atrial fibrillation Abdomen Exam: Positive: Normal bowel sounds, Other (obese), Soft, Negative: Hepatospenomegaly, Mass, Tenderness Male Exam: Positive: Erythema (On inspection, inguinal/inner thigh area, and scrotal area had erythema and fungal rash presentation), Negative: Discharge Extremity Exam: Positive: Other (candidiasis of bilateral groin, LLE erythema and cellulitis to the L heel and pitting edema. No crepitus noted. RLE edema. Venous stasis ulcers of bilateral lower extremities. Amputated R 2nd toe and L 2nd and 3rd toes. Poor foot hygiene with discoloration/onychomycoses in toenails. R distal foot has numbness/tingling > L due to diabetic neuropathy ( as per patient)) Skin Exam: Positive: Other skin issue (LLE cellulitis and bilateral venous stasis ulcers/dermatitis of lower extremities, pressure ulcers of heels, hyperthickened discolored toenails with onychomycoses, very poor foot hygiene bilaterally. 2nd distal R toe amputated. Distal 2nd and 3rd L toe amputated. Some pitting edema noted in LLE and some edema noted in RLE. Warm, dry, and cellulitic lower extremities bilaterally.) Neuro Exam: Positive: Normal Speech, Other (Sensation not intact in RLE.) Psych Exam: Positive: Memory Intact, Mental status NL, Mood NL, Oriented x 3 Assessment /Plan Problems (1) Severe sepsis Status: Resolved Response to Treatment: Stable, Improving Discussed With: Patient Problem Specific Plan: Monitor Clinically, Repeat Labs Problem Text: Septic shock in the setting of hypotension - treated with presser support - resolved. Off presser support from yesterday. Source believed to be legs/feet however all cultures thus far negative. Wound consultation appreciated. Podiatry consultation appreciated, POD #1 bedside right foot ulcer debridement, cultures pending. Day #3 Zosyn/Vanco. MRSA screen negative. (2) Hypotension Status: Resolved Response to Treatment: Stable Discussed With: Patient Problem Specific Plan: Monitor Clinically, Repeat Labs Problem Text: As per severe sepsis. Off presser support. CVP >10. IV fluids discontinued. (3) Cellulitis Status: Acute Response to Treatment: Improving Discussed With: Nurse, Wardrobe Consultant, Patient Problem Specific Plan: Consult Specialist, Monitor Clinically, Repeat Labs Problem Text: Patient has wounds in feet and cellulitis in lower extremities. POD #1 bedside debridement right foot ulcer, podiatry consultation appreciated. Continue wound care as per Dr. Zambrano's recommendations, assistance appreciated. Continue nystatin, fluconazole, and broad spectrum antibiotics: vancomycin and zosyn - day #3. (4) DKA (diabetic ketoacidosis) Status: Resolved Discussed With: Patient Problem Specific Plan: Monitor Clinically, Repeat Labs Problem Text: Continue with ISS, modified diet. (5) Diabetes Status: Chronic Response to Treatment: Worse, Uncontrolled Discussed With: Patient Problem Specific Plan: Monitor Clinically, Repeat Labs Problem Text: HgbA1C of 12.6 and severely uncontrolled. W Will continue to treat with long-acting insulin and AC and HS sliding scale coverage. (6) CKD (chronic kidney disease) Status: Resolved Response to Treatment: Improving Discussed With: Patient Problem Specific Plan: Monitor Clinically, Repeat Labs Problem Text: Continues to improve. Renal US = medical renal disease Likely diabetic nephropathy. (7) Afib Status: Chronic Response to Treatment: Stable Discussed With: Patient Problem Specific Plan: Repeat Labs Problem Text: Rate controlled. Resumed coumadin for anti-coagulation. Daily INR. (8) COPD (chronic obstructive pulmonary disease) Status: Chronic Response to Treatment: Stable Discussed With: Patient Problem Specific Plan: Monitor Clinically Problem Text: Will continue home medications: advair diskus and nebulizer duonebs in hospital. Patient states many years ago (20) he did require oxygen, but weaned himself off ? (9) CHF (congestive heart failure) Status: Chronic Response to Treatment: Stable Discussed With: Patient Problem Specific Plan: Monitor Clinically, Repeat Labs Problem Text: Monitor for SOB and lower extremity edema. Holding lasix for now due to low BP. SUSAN done did not show systolic dysfunction. SUSAN/Echocardiogram on 01/19/17 showed normal systolic function/LVEF of 60%, normal LV wall thickness, moderately enlarged L atrium at 5.3 cm. The R atrium and R ventricle were not well visualized. The atrial septum was not well visualized. Normal aortic root. No pericardial effusion. Mildly calcified aortic valve, leaflet excursion appeared to be normal. Mildly calcified mitral annulus, the anterior mitral valve leaflet was not well visualized. Tricuspid valve, pulmonic valve, and proximal pulmonary artery branches were not well visualized. The inferior vena cava was dilated, central venous pressure might be elevated. Technically limited study due to poor acoustic window. Probably normal global left ventricular systolic function. No significant mitral regurgitation detected. Trace tricuspid regurgitation with a normal calculated pulmonary artery systolic pressure. Patient appeared to be in atrial fibrillation during the test. (10) Gout Status: Chronic Response to Treatment: Stable Discussed With: Patient Problem Specific Plan: Monitor Clinically Problem Text: Continue allopurinol. (11) HTN (hypertension) Status: Chronic Discussed With: Patient Problem Specific Plan: Monitor Clinically Problem Text: As per above, patient hypotensive - now off pressers. Will hold off all BP medications at the moment. Restart as needed. Resume ACEI when tolerable. (12) Dyslipidemia Status: Chronic Response to Treatment: Stable Discussed With: Patient Problem Specific Plan: Monitor Clinically Problem Text: Continue atorvastatin. (13) GERD (gastroesophageal reflux disease) Status: Chronic Response to Treatment: Stable Discussed With: Patient Problem Specific Plan: Monitor Clinically Problem Text: Continue omeprazole. (14) Fall Status: Acute Discussed With: Patient Problem Specific Plan: Monitor Clinically, Repeat Labs, Repeat Tests Problem Text: As per history appears to be mechanical fall. Follow as per physical therapy/occupational therapy. (15) DANNIELLE (obstructive sleep apnea) Status: Chronic Discussed With: Patient Problem Specific Plan: Monitor Clinically, Repeat Tests Problem Text: Patient states he was being assessed for CPAP or possibly NIPPV but could not tolerate mask. Unclear history. Will check nocturnal oximetry. High likelihood DANNIELLE +/- OHS Plan/VTE VTE Prophylaxis Ordered?: Yes (restarted daily home coumadin due to therapeutic INR. Will monitor PT/INRs daily. Hold if supratherapeutic. Start if subtherapeutic as well. ) Plan/Urinary Catheter Urinary Catheter: D/C Lacy Reason for insertion/continuin: Other-document below (Patient with CKD Stage 3- 4. Monitoring I's/O's. Preventing urinary obstruction. ) Plan IVF: Continue Diet: Continue Current Activity: Bedrest Therapy: PT, OT, Wound Consult Pt and Family Services: Other PFS (Please evaluate for home safety and health. ) Medications: Change to PO Diagnostics: Check Labs, Repeat Labs in AM, Obtain Cultures Anticipated Discharge: Home With Services BERENICE lacy. Trial of voiding. Continue telemetry. Monitor blood pressures. IV antibiotics. Pending cultures. Anticipating downgrade to PCU or med/surg in 24 hours. VS, I&O, 24H, Fishbone Vital Signs/I&O Vital Signs Date Time Temp Pulse Resp B/P Pulse Ox O2 Delivery O2 Flow Rate FiO2 01/21/17 07:28 98 Nasal Cannula 2.0 01/21/17 06:00 92 18 139/85 01/21/17 04:00 98.8 I&O- Last 24 Hours up to 6 AM 01/21/17 05:59 Intake Total 3571 ml Output Total 3620 ml Balance -49 ml Laboratory Data 24H LABS Laboratory Tests 2 01/20/17 08:02: Bedside Glucose (Misc Panel) 138H 01/20/17 08:56: Bedside Glucose (Misc Panel) 197H 01/20/17 11:58: Bedside Glucose (Misc Panel) 255H 01/20/17 12:06: Vancomycin Level Trough 14.0 01/20/17 16:58: Bedside Glucose (Misc Panel) 392H 01/20/17 20:50: Bedside Glucose (Misc Panel) 425H 01/20/17 20:55: Anion Gap 8, Blood Urea Nitrogen 35H, Creatinine 1.84H, Sodium Level 137, Potassium Level 3.9, Chloride Level 104, Carbon Dioxide Level 25, Calcium Level 7.5L, Glomerular Filtration Rate 40.1L 01/21/17 04:37: Anion Gap 6L, Blood Urea Nitrogen 27H, Creatinine 1.52H, Sodium Level 140, Potassium Level 4.1, Chloride Level 107, Carbon Dioxide Level 27, Calcium Level 7.6L, Glomerular Filtration Rate 50.0, Activated Partial Thromboplast Time 34.5 , Aspartate Amino Transf (AST/SGOT) 18, Alanine Aminotransferase (ALT/SGPT) 14, Alkaline Phosphatase 74, Total Bilirubin 0.5, Total Protein 6.2L, Albumin 2.0L, Albumin/Globulin Ratio 0.48L, White Blood Count 5.7, Red Blood Count 3.94L, Hemoglobin 10.6L, Hematocrit 35.3L, Mean Corpuscular Volume 89.6, Mean Corpuscular Hemoglobin 27.0, Mean Corpuscular Hemoglobin Concent 30.1L, Red Cell Distribution Width 17.4H, Platelet Count 216, Neutrophils (%) (Auto) 78.4H , Lymphocytes (%) (Auto) 10.6L, Monocytes (%) (Auto) 4.3, Eosinophils (%) (Auto ) 5.0H, Basophils (%) (Auto) 0.7, Neutrophils # (Auto) 4.5, Lymphocytes # (Auto ) 0.7L, Monocytes # (Auto) 0.3, Eosinophils # (Auto) 0.3, Basophils # (Auto) 0.0 , C-Reactive Protein, Quantitative 3.20H, Large Unclassified Cells # 0.1, Large Unclassified Cells % 1.0, Magnesium Level 2.2, Prothromb Time International Ratio 1.79, Prothrombin Time 20.9H CBC/BMP Laboratory Tests 01/20/17 20:55 Calcium Level 7.5 L 01/21/17 04:37 Calcium Level 7.6 L, Aspartate Amino Transf (AST/SGOT) 18, Alanine Aminotransferase (ALT/SGPT) 14, Alkaline Phosphatase 74, Total Bilirubin 0.5, Total Protein 6.2 L, Albumin 2.0 L, Red Blood Count 3.94 L, Mean Corpuscular Volume 89.6, Mean Corpuscular Hemoglobin 27.0, Mean Corpuscular Hemoglobin Concent 30.1 L, Red Cell Distribution Width 17.4 H, Neutrophils (%) (Auto) 78.4 H, Lymphocytes (%) (Auto) 10.6 L, Monocytes (%) (Auto) 4.3, Eosinophils (%) ( Auto) 5.0 H, Basophils (%) (Auto) 0.7, Neutrophils # (Auto) 4.5, Lymphocytes # ( Auto) 0.7 L, Monocytes # (Auto) 0.3, Eosinophils # (Auto) 0.3, Basophils # (Auto ) 0.0 Microbiology Microbiology 01/19/17 Blood Culture - Preliminary, Resulted No Growth after 48 hours. All Specime... 01/19/17 Blood Culture - Preliminary, Resulted No Growth after 48 hours. All Specime... 01/20/17 Stool Occult Blood (MARIAMA) - Final, Complete 01/19/17 MRSA Screen - Final, Complete 01/19/17 Urine Culture - Final, Complete 01/19/17 Urine Culture - Final, Complete 01/20/17 Gram Stain - Final, Resulted 01/20/17 Wound Culture, Resulted Pending 01/19/17 Gram Stain - Final, Resulted 01/19/17 Wound Culture, Resulted Pending KASSY RUTLEDGE MD Jan 21, 2017 07:52
[2017-01-21] MEDS: SENOKOT S TAB PO SCH ×2 (08:51→20:41)
[2017-01-21] MEDS: OMEPRAZOLE 20 MG CAP PO SCH (08:51)
[2017-01-21] MEDS: ALLOPURINOL 300 MG TAB PO SCH (08:51)
[2017-01-21] MEDS: ATORVASTATIN 20 MG TAB PO SCH (08:51)
[2017-01-21] MEDS: LEVEMIR (INSULIN DETEMIR) 1 UNITS/0.01ML SC SCH ×2 (08:52→21:28)
[2017-01-21] MEDS: POTASSIUM CHLORIDE 10 MEQ SR TABLET PO SCH ×2 (08:52→21:28)
[2017-01-21] MEDS: NYSTATIN 100,000 UNITS/GM TOPICAL PWD 15 GM TOP SCH ×2 (08:52→21:29)
[2017-01-21] MEDS: FLUTICASONE PROP 0.05% NASAL SPRAY 16 GM (FLONASE) SCH (08:52)
[2017-01-21] MEDS: SANTYL OINT 30GM TOP SCH (08:53)
[2017-01-21] MEDS: SILVER SULFADIAZINE 1% CR 50 GM JAR TOP SCH ×2 (11:04→21:29)
--- NOTE | 2017-01-21 13:33 | NOCOX ---
DATE OF PROCEDURE: 01/20/2017 to 01/21/2017 The study initially started on room air and then placed on 2 liters nasal cannula oxygen flow at approximately 0100. Overall baseline oxygen saturation for the entire study 96.6%. Some variability with some cyclic desaturations were noted. Baseline markedly improved after the addition of 2 liters nasal cannula oxygen flow and after the addition of that saturations generally remained above 90%. The pattern overall strongly suggests Edgar-Christina respirations, but concomitant underlying obstructive sleep apnea syndrome cannot be ruled out on the basis of the study. IMPRESSION: Abnormal nocturnal oximetry with improved oxygen saturations with the addition of 2 liters nasal cannula oxygen flow. Please correlate clinically.
[2017-01-21] MEDS ORDERED: WARFARIN SOD 7.5 MG TAB PO SCH (17:00)
[2017-01-21] MEDS ORDERED: SLF 3 ML SYR IV PRN (20:15)
[2017-01-21] MEDS ORDERED: SODIUM CHLORIDE 0.9% INJ 10 ML SYR IV PRN (20:15)
[2017-01-21] MEDS: FLUCONAZOLE 100 MG TAB PO SCH (21:28)
[2017-01-21] MEDS: SLF 3 ML SYR IV SCH (21:30)
[2017-01-21] MEDS: SODIUM CHLORIDE 0.9% INJ 10 ML SYR IV SCH (21:30)
[2017-01-22] VITALS (8 sets, daily range): BP systolic 124–188; BP diastolic 57–84
[2017-01-22] MEDS: VANCOMYCIN HCL 750 MG, VIAL MATE ADAPTER 1 EACH in D5W 250 ML IV SCH ×2 (01:18→12:57)
[2017-01-22] MEDS: PIPERACILLIN/TAZOBACTAM SOD 2.25 GM in D5W MINI-BAG PLUS 50 ML IV SCH ×4 (02:27→20:15)
[2017-01-22] MEDS: SLF 3 ML SYR IV SCH ×3 (05:33→20:16)
[2017-01-22] MEDS: SODIUM CHLORIDE 0.9% INJ 10 ML SYR IV SCH ×3 (05:33→21:07)
[2017-01-22 05:55] LABS: BASO % 0.5 % (0.0-1.0); EOS # 0.2 K/mm3 (0.0-0.50); EOS % 4.5 % (0.0-3.0); LARGE UNSTAINED CELL # 0.1 K/mm3 (0.0-0.4); LARGE UNSTAINED CELL % 1.3 % (0.0-4.0); LYMPH # 0.6 K/mm3 (1.5-4.5); LYMPH % 11.3 % (24.0-44.0); MEAN CORPUSCULAR HEMOGLOBIN 27.7 pg (27.0-33.0); MEAN CORPUSCULAR HGB CONC 31.3 g/dl (32.0-36.5); MEAN CORPUSCULAR VOLUME 88.5 fl (80.0-96.0); MONO # 0.3 K/mm3 (0.0-0.8); MONO % 4.9 % (0.0-5.0); NEUTROPHILS # 4.2 K/mm3 (1.8-7.7); NEUTROPHILS % 77.5 % (36.0-66.0); PLATELET COUNT, AUTOMATED 220 k/mm3 (150-450); RED CELL DISTRIBUTION WIDTH 17.2 % (11.5-14.5); WHITE BLOOD COUNT 5.4 K/mm3 (4.0-10.0)
[2017-01-22 05:57] LABS: INR 1.86
[2017-01-22 06:17] LABS: ALBUMIN/GLOBULIN RATIO 0.43 (1.00-1.93); ALKALINE PHOSPHATASE 62 U/L (45-117); ALT/SGPT 15 U/L (12-78); ANION GAP 5 MEQ/L (8-16); AST/SGOT 22 U/L (15-37); BILIRUBIN,TOTAL 0.3 MG/DL (0.2-1.0); BLOOD UREA NITROGEN 13 MG/DL (7-18); CALCIUM LEVEL 7.9 MG/DL (8.8-10.2); CARBON DIOXIDE LEVEL 28 MEQ/L (21-32); CHLORIDE LEVEL 107 MEQ/L (98-107); CREATININE FOR GFR 1.12 MG/DL (0.70-1.30); GLOMERULAR FILTRATION RATE > 60.0 (>49); GLUCOSE, FASTING 150 MG/DL (80-110); POTASSIUM SERUM 4.2 MEQ/L (3.5-5.1); SODIUM LEVEL 140 MEQ/L (136-145); TOTAL PROTEIN 6.6 GM/DL (6.4-8.2)
[2017-01-22] MEDS: ADVAIR DISKUS 500/50 INH PWD INH SCH ×2 (07:48→19:32)
[2017-01-22] MEDS: HumaLOG INSULIN (NovoLOG) PER UNIT SC SCH ×4 (07:50→21:33)
--- NOTE | 2017-01-22 08:07 | IPNPDOC ---
Subjective Date Seen The patient was seen on 01/22/17. Subjective Chief Complaint/HPI The patient is a 61-year-old male admitted with a reason for visit of Sepsis/ Hyperglycemia. General: Denies: Chills, Fatigue, Malaise, Night Sweats, Normal Appetite, Other Symptoms, ROS Unobtainable Constitutional: Denies: Chills, Fatigue, Fever, Lethargy, Malaise, Night Sweats , Other, Weakness, Weight Loss Eyes: Denies: Conjunctivae inflammation, Eyelid inflammation, Other, Pain, Redness, Vision change ENT: Denies: Dysphagia, Ear Pain, Epistaxis, Head Aches, Other Symptoms, Post Nasal Drip, Sinus Congestion, Sore Throat Skin: Denies: Breakdown, Bruising, Dry, Itching, Jaundice, Lesions, Nail Changes, Other, Rash Pulmonary: Reports: Dyspnea, Denies: Cough, Other Symptoms, Pleuritic Chest Pain Cardiovascular: Denies: Chest Pain, Edema, Lt Headedness, Orthopnea, Other Symptoms, Palpitations, Paroxysmal Noc. Dyspnea Gastrointestinal: Denies: Abdominal Pain, Constipation, Diarrhea, Hematochezia , Melena, Nausea, Other Symptoms, Vomiting Genitourinary: Denies: Dysuria, Frequency, Hematuria, Incontinence, Other Symptoms, Retention Hematologic: Denies: Bleeding Excessively, Bruising, Enlarged Lymph Nodes, Other Hematologic, Petecchia, Purpura Objective Physical Examination General Exam: Positive: Alert, Cooperative, No Acute Distress, Other (poor hygiene, dissheveled on arrival) Eye Exam: Positive: Conjunctiva & lids normal, EOMI, PERRLA, Negative: Sclera icteric ENT Exam: Positive: Atraumatic, Mucous membr. moist/pink Neck Exam: Positive: Supple, Negative: JVD, Lymphadenopathy, thyromegaly Chest Exam: Positive: Clear to auscultation, Normal air movement, Negative: Rales, Rhonchi, Wheezing Heart Exam: Positive: Irregular Rhythm, Normal S1, Normal S2, Other (very distant heart sounds due to obese body habitus), Rate Normal, Negative: Gallops, Murmurs, Rubs Telemetry: Positive: Atrial fibrillation Abdomen Exam: Positive: Normal bowel sounds, Other (obese), Soft, Negative: Hepatospenomegaly, Mass, Tenderness Male Exam: Positive: Erythema (On inspection, inguinal/inner thigh area, and scrotal area had erythema and fungal rash presentation), Negative: Discharge Extremity Exam: Positive: Other (candidiasis of bilateral groin, LLE erythema and cellulitis to the L heel and pitting edema. RLE edema. Venous stasis ulcers of bilateral lower extremities. Amputated R 2nd toe and L 2nd and 3rd toes. Poor foot hygiene with discoloration/onychomycoses in toenails. R distal foot has numbness/tingling > L) Skin Exam: Positive: Breakdown, Other skin issue (LLE cellulitis and bilateral venous stasis ulcers/dermatitis of lower extremities, pressure ulcers of heels, hyperthickened discolored toenails with onychomycoses, very poor foot hygiene bilaterally. 2nd distal R toe amputated. Distal 2nd and 3rd L toe amputated. Some pitting edema noted in LLE and some edema noted in RLE. Warm, dry, and cellulitic lower extremities bilaterally.) Neuro Exam: Positive: Normal Speech, Other (Diminished sensation B/L LE.), Negative: Sensation Intact Psych Exam: Positive: Mental status NL, Mood NL, Oriented x 3 Assessment /Plan Problems (1) Severe sepsis Status: Resolved Response to Treatment: Stable, Improving Discussed With: Patient Problem Specific Plan: Monitor Clinically, Repeat Labs Problem Text: Septic shock in the setting of hypotension - requiring presser support - Resolved. Off pressers. Source believed to be legs/feet however all cultures thus far negative. Wound consultation appreciated. Cultures from wound on admission few coag neg staph. Podiatry consultation appreciated, POD #2 bedside right foot ulcer debridement, cultures pending. Day #4 Zosyn/Vanco. MRSA screen negative. (2) Hypotension Status: Resolved Response to Treatment: Stable Discussed With: Patient Problem Specific Plan: Monitor Clinically, Repeat Labs Problem Text: As per severe sepsis. Off presser support. CVP >10. IV fluids discontinued. (3) Cellulitis Status: Acute Response to Treatment: Improving Discussed With: Nurse, Mechanical Oxidizer, Patient Problem Specific Plan: Consult Specialist, Monitor Clinically, Repeat Labs Problem Text: Patient has wounds in feet and cellulitis in lower extremities. POD #2 bedside debridement right foot ulcer, podiatry consultation appreciated. Continue wound care as per Dr. Zambrano's recommendations, assistance appreciated. Continue nystatin, fluconazole, and broad spectrum antibiotics: vancomycin and zosyn - day #4. (4) DKA (diabetic ketoacidosis) Status: Resolved Discussed With: Patient Problem Specific Plan: Monitor Clinically, Repeat Labs Problem Text: Continue with ISS, modified diet. (5) Diabetes Status: Chronic Response to Treatment: Worse, Uncontrolled Discussed With: Patient Problem Specific Plan: Monitor Clinically, Repeat Labs Problem Text: Uncontrolled - HgbA1C of 12.6 Will continue to treat with long-acting insulin and AC and HS sliding scale coverage. (6) CKD (chronic kidney disease) Status: Resolved Discussed With: Patient Problem Specific Plan: Repeat Labs Problem Text: Renal function within normal limits. (7) Afib Status: Chronic Response to Treatment: Stable Discussed With: Patient Problem Specific Plan: Repeat Labs Problem Text: Rate controlled. Resumed coumadin for anti-coagulation. Daily INR. (8) COPD (chronic obstructive pulmonary disease) Status: Chronic Response to Treatment: Stable Discussed With: Patient Problem Specific Plan: Monitor Clinically Problem Text: Will continue home medications: advair diskus and nebulizer duonebs in hospital. Patient states many years ago (20) he did require oxygen, but weaned himself off ? (9) CHF (congestive heart failure) Status: Chronic Response to Treatment: Stable, Compensated Discussed With: Patient Problem Specific Plan: Monitor Clinically, Repeat Labs Problem Text: Resuming lasix TTE on 01/19/17 showed normal systolic function/LVEF of 60%, normal LV wall thickness, moderately enlarged L atrium at 5.3 cm. The R atrium and R ventricle were not well visualized. The atrial septum was not well visualized. Normal aortic root. No pericardial effusion. Mildly calcified aortic valve, leaflet excursion appeared to be normal. Mildly calcified mitral annulus, the anterior mitral valve leaflet was not well visualized. Tricuspid valve, pulmonic valve, and proximal pulmonary artery branches were not well visualized. The inferior vena cava was dilated, central venous pressure might be elevated. Technically limited study due to poor acoustic window. Probably normal global left ventricular systolic function. No significant mitral regurgitation detected. Trace tricuspid regurgitation with a normal calculated pulmonary artery systolic pressure. Patient appeared to be in atrial fibrillation during the test. (10) Gout Status: Chronic Response to Treatment: Stable Discussed With: Patient Problem Specific Plan: Monitor Clinically Problem Text: Continue allopurinol. (11) HTN (hypertension) Status: Chronic Discussed With: Patient Problem Specific Plan: Monitor Clinically Problem Text: Resume ACEI and lasix. Remainder of home meds on hold for now (atenolol, clonidine, diltiazem, valsartan, hctz). (12) Dyslipidemia Status: Chronic Response to Treatment: Stable Discussed With: Patient Problem Specific Plan: Monitor Clinically Problem Text: Continue atorvastatin. (13) GERD (gastroesophageal reflux disease) Status: Chronic Response to Treatment: Stable Discussed With: Patient Problem Specific Plan: Monitor Clinically Problem Text: Continue omeprazole. (14) Fall Status: Acute Discussed With: Patient Problem Specific Plan: Monitor Clinically, Repeat Labs, Repeat Tests Problem Text: As per history appears to be mechanical fall. Follow as per physical therapy/occupational therapy. (15) DANNIELLE (obstructive sleep apnea) Status: Chronic Discussed With: Patient Problem Specific Plan: Monitor Clinically, Repeat Tests Problem Text: Patient states he was being assessed for CPAP or possibly NIPPV but could not tolerate mask. Unclear history. Will check nocturnal oximetry. High likelihood DANNIELLE +/- OHS (16) Morbid obesity Status: Chronic Discussed With: Patient Problem Text: Further complicating factor to his medical care. Plan/VTE VTE Prophylaxis Ordered?: Yes (restarted daily home coumadin due to therapeutic INR. Will monitor PT/INRs daily. Hold if supratherapeutic. Start if subtherapeutic as well. ) Plan/Urinary Catheter Urinary Catheter: D/C Lacy Reason for insertion/continuin: Other-document below (Patient with CKD Stage 3- 4. Monitoring I's/O's. Preventing urinary obstruction. ) Plan IVF: Continue Diet: Continue Current Activity: Bedrest Therapy: PT, OT, Wound Consult Pt and Family Services: Other PFS (Please evaluate for home safety and health. ) Medications: Change to PO Diagnostics: Check Labs, Repeat Labs in AM, Obtain Cultures Anticipated Discharge: Home With Services D/C lacy. Continue Abx, would likely complete 5-7 days. Resuming home blood pressure as needed - ACEI and lasix today. PT/OT. PFS. Transfer to floor. VS, I&O, 24H, Fishbone Vital Signs/I&O Vital Signs Date Time Temp Pulse Resp B/P Pulse Ox O2 Delivery O2 Flow Rate FiO2 01/22/17 04:00 98.2 99 20 144/75 98 Nasal Cannula 2.0 I&O- Last 24 Hours up to 6 AM 01/22/17 05:59 Intake Total 2070 ml Output Total 3640 ml Balance -1570 ml Laboratory Data 24H LABS Laboratory Tests 2 01/21/17 11:41: Bedside Glucose (Misc Panel) 218H 01/21/17 16:47: Bedside Glucose (Misc Panel) 223H 01/21/17 21:13: Bedside Glucose (Misc Panel) 234H 01/22/17 05:34: Activated Partial Thromboplast Time 31.9, Blood Urea Nitrogen 13#, Creatinine 1.12, Sodium Level 140, Potassium Level 4.2, Chloride Level 107, Carbon Dioxide Level 28, Calcium Level 7.9L, Aspartate Amino Transf (AST/SGOT) 22, Alanine Aminotransferase (ALT/SGPT) 15, Alkaline Phosphatase 62, Total Bilirubin 0.3, Total Protein 6.6, Albumin 2.0L, Albumin/Globulin Ratio 0.43L, Anion Gap 5L, White Blood Count 5.4, Red Blood Count 3.94L, Hemoglobin 10.9L, Hematocrit 34.8L , Mean Corpuscular Volume 88.5, Mean Corpuscular Hemoglobin 27.7, Mean Corpuscular Hemoglobin Concent 31.3L, Red Cell Distribution Width 17.2H, Platelet Count 220, Neutrophils (%) (Auto) 77.5H, Lymphocytes (%) (Auto) 11.3L, Monocytes (%) (Auto) 4.9, Eosinophils (%) (Auto) 4.5H, Basophils (%) (Auto) 0.5 , Neutrophils # (Auto) 4.2, Lymphocytes # (Auto) 0.6L, Monocytes # (Auto) 0.3, Eosinophils # (Auto) 0.2, Basophils # (Auto) 0.0, C-Reactive Protein, Quantitative 1.85H, Glomerular Filtration Rate > 60.0, Large Unclassified Cells # 0.1, Large Unclassified Cells % 1.3, Magnesium Level 2.0, Prothromb Time International Ratio 1.86, Prothrombin Time 21.5H CBC/BMP Laboratory Tests 01/22/17 05:34 Calcium Level 7.9 L, Aspartate Amino Transf (AST/SGOT) 22, Alanine Aminotransferase (ALT/SGPT) 15, Alkaline Phosphatase 62, Total Bilirubin 0.3, Total Protein 6.6, Albumin 2.0 L, Red Blood Count 3.94 L, Mean Corpuscular Volume 88.5, Mean Corpuscular Hemoglobin 27.7, Mean Corpuscular Hemoglobin Concent 31.3 L, Red Cell Distribution Width 17.2 H, Neutrophils (%) (Auto) 77.5 H, Lymphocytes (%) (Auto) 11.3 L, Monocytes (%) (Auto) 4.9, Eosinophils (%) ( Auto) 4.5 H, Basophils (%) (Auto) 0.5, Neutrophils # (Auto) 4.2, Lymphocytes # ( Auto) 0.6 L, Monocytes # (Auto) 0.3, Eosinophils # (Auto) 0.2, Basophils # (Auto ) 0.0 Microbiology Microbiology 01/19/17 Blood Culture - Preliminary, Resulted No Growth after 72 hours. All specime... 01/19/17 Blood Culture - Preliminary, Resulted No Growth after 72 hours. All specime... 01/20/17 Stool Occult Blood (MARIAMA) - Final, Complete 01/19/17 MRSA Screen - Final, Complete 01/19/17 Urine Culture - Final, Complete 01/19/17 Urine Culture - Final, Complete 01/20/17 Gram Stain - Final, Resulted 01/20/17 Wound Culture, Resulted Pending 01/19/17 Gram Stain - Final, Complete 01/19/17 Wound Culture - Final, Complete Staphylococcus Sp Coag KASSY Menchaca MD Jan 22, 2017 08:07
[2017-01-22] MEDS: SENOKOT S TAB PO SCH ×2 (08:44→20:08)
[2017-01-22] MEDS: OMEPRAZOLE 20 MG CAP PO SCH (08:44)
[2017-01-22] MEDS: ATORVASTATIN 20 MG TAB PO SCH (08:44)
[2017-01-22] MEDS: FLUTICASONE PROP 0.05% NASAL SPRAY 16 GM (FLONASE) SCH (08:44)
[2017-01-22] MEDS: ALLOPURINOL 300 MG TAB PO SCH (08:45)
[2017-01-22] MEDS: LEVEMIR (INSULIN DETEMIR) 1 UNITS/0.01ML SC SCH ×2 (08:45→21:33)
[2017-01-22] MEDS: POTASSIUM CHLORIDE 10 MEQ SR TABLET PO SCH ×2 (08:45→20:16)
[2017-01-22] MEDS: SILVER SULFADIAZINE 1% CR 50 GM JAR TOP SCH ×2 (08:46→20:17)
[2017-01-22] MEDS: NYSTATIN 100,000 UNITS/GM TOPICAL PWD 15 GM TOP SCH ×2 (08:46→20:16)
--- NOTE | 2017-01-22 14:55 | RO ---
DATE OF PROCEDURE: 01/19/2017 PREPROCEDURE DIAGNOSES: Hypotension. Sepsis. Need for vascular access and central line monitoring. POSTPROCEDURE DIAGNOSES: Hypotension. Sepsis. Need for vascular access and central line monitoring. PROCEDURE: Insertion of left subclavian central line. SURGEON: Lance Rankin MD USED CAR SALES MANAGER: ANESTHESIA: DESCRIPTION OF PROCEDURE: Patient's left infraclavicular fossa was prepped and draped in the usual sterile fashion. It was infiltrated with 1% Xylocaine. Vein was found on the third pass. Wire was placed with production of PVCs. Tract was dilated, and a triple-lumen catheter was placed by Seldinger technique. The ports were aspirated and flushed without difficulty and the catheter secured to the chest wall with two #3-0 silk sutures. Patient tolerated the procedure well, and a chest x-ray is pending.
[2017-01-22] MEDS ORDERED: FUROSEMIDE 20 MG TAB PO ONE (15:30)
[2017-01-22] MEDS: VALSARTAN 80 MG TAB (DIOVAN) PO SCH (15:53)
[2017-01-22] MEDS ORDERED: WARFARIN SOD 5 MG TAB PO SCH (17:00)
[2017-01-22] MEDS: WARFARIN SOD 3 MG TAB PO SCH (18:41)
[2017-01-22] MEDS: FLUCONAZOLE 100 MG TAB PO SCH (20:15)
[2017-01-23] MEDS: VANCOMYCIN HCL 750 MG, VIAL MATE ADAPTER 1 EACH in D5W 250 ML IV SCH ×2 (00:50→12:45)
[2017-01-23 02:00] VITALS: BP 126/76
[2017-01-23] MEDS: PIPERACILLIN/TAZOBACTAM SOD 2.25 GM in D5W MINI-BAG PLUS 50 ML IV SCH ×4 (02:24→20:11)
[2017-01-23] MEDS: SLF 3 ML SYR IV SCH ×3 (05:15→22:04)
[2017-01-23] MEDS: SODIUM CHLORIDE 0.9% INJ 10 ML SYR IV SCH ×2 (05:15→14:21)
[2017-01-23 05:39] LABS: BASO % 0.5 % (0.0-1.0); EOS # 0.2 K/mm3 (0.0-0.50); EOS % 4.1 % (0.0-3.0); LARGE UNSTAINED CELL # 0.1 K/mm3 (0.0-0.4); LARGE UNSTAINED CELL % 2.2 % (0.0-4.0); LYMPH # 0.7 K/mm3 (1.5-4.5); LYMPH % 11.9 % (24.0-44.0); MEAN CORPUSCULAR HEMOGLOBIN 27.9 pg (27.0-33.0); MEAN CORPUSCULAR HGB CONC 31.1 g/dl (32.0-36.5); MEAN CORPUSCULAR VOLUME 89.6 fl (80.0-96.0); MONO # 0.3 K/mm3 (0.0-0.8); MONO % 5.9 % (0.0-5.0); NEUTROPHILS # 4.1 K/mm3 (1.8-7.7); NEUTROPHILS % 75.3 % (36.0-66.0); PLATELET COUNT, AUTOMATED 227 k/mm3 (150-450); RED CELL DISTRIBUTION WIDTH 17.3 % (11.5-14.5); WHITE BLOOD COUNT 5.4 K/mm3 (4.0-10.0)
[2017-01-23 05:48] LABS: INR 2.27
[2017-01-23 05:49] LABS: ALBUMIN 2.1 GM/DL (3.2-5.2); ALBUMIN/GLOBULIN RATIO 0.51 (1.00-1.93); ALKALINE PHOSPHATASE 61 U/L (45-117); ALT/SGPT 15 U/L (12-78); ANION GAP 5 MEQ/L (8-16); AST/SGOT 24 U/L (15-37); BILIRUBIN,TOTAL 0.3 MG/DL (0.2-1.0); BLOOD UREA NITROGEN 10 MG/DL (7-18); CALCIUM LEVEL 7.9 MG/DL (8.8-10.2); CARBON DIOXIDE LEVEL 29 MEQ/L (21-32); CHLORIDE LEVEL 107 MEQ/L (98-107); GLOMERULAR FILTRATION RATE > 60.0 (>49); GLUCOSE, FASTING 139 MG/DL (80-110); MAGNESIUM LEVEL 1.9 MG/DL (1.8-2.4); POTASSIUM SERUM 4.5 MEQ/L (3.5-5.1); SODIUM LEVEL 141 MEQ/L (136-145); TOTAL PROTEIN 6.2 GM/DL (6.4-8.2)
[2017-01-23 06:00] VITALS: BP 136/76
[2017-01-23] MEDS: ADVAIR DISKUS 500/50 INH PWD INH SCH ×2 (08:57→19:41)
[2017-01-23] MEDS: HumaLOG INSULIN (NovoLOG) PER UNIT SC SCH ×4 (09:06→22:03)
[2017-01-23] MEDS: POTASSIUM CHLORIDE 10 MEQ SR TABLET PO SCH ×2 (09:06→22:02)
[2017-01-23] MEDS: ALLOPURINOL 300 MG TAB PO SCH (09:07)
[2017-01-23] MEDS: ATORVASTATIN 20 MG TAB PO SCH (09:07)
[2017-01-23] MEDS: OMEPRAZOLE 20 MG CAP PO SCH (09:07)
[2017-01-23] MEDS: SENOKOT S TAB PO SCH ×2 (09:07→22:02)
[2017-01-23] MEDS: FUROSEMIDE 20 MG TAB PO SCH (09:07)
[2017-01-23] MEDS: LEVEMIR (INSULIN DETEMIR) 1 UNITS/0.01ML SC SCH ×2 (09:08→22:01)
[2017-01-23] MEDS: FLUTICASONE PROP 0.05% NASAL SPRAY 16 GM (FLONASE) SCH (09:08)
[2017-01-23] MEDS: VALSARTAN 80 MG TAB (DIOVAN) PO SCH (09:08)
[2017-01-23] MEDS: SILVER SULFADIAZINE 1% CR 50 GM JAR TOP SCH ×2 (09:09→22:04)
[2017-01-23] MEDS: NYSTATIN 100,000 UNITS/GM TOPICAL PWD 15 GM TOP SCH ×2 (09:09→22:04)
[2017-01-23] MEDS: SANTYL OINT 30GM TOP SCH (09:12)
[2017-01-23 10:00] VITALS: BP 149/83
[2017-01-23 14:00] VITALS: BP 158/85
--- NOTE | 2017-01-23 15:29 | IPN ---
DATE: 01/23/2017 Mr. Mott is feeling well today. He has no complaints of pain. No chest pain. No shortness of breath. He is tolerating a diet. Temperature 97.2, pulse 107, respiratory rate 18, blood pressure 149/83, 91% on room air. Input and output notable for a positive fluid balance of 515, four bowel movements yesterday. He is awake and appropriately interactive, pleasantly conversant. Breathing is symmetrically diminished. Heart is distant sounding, normal S1, S2. Abdomen is soft, doughy, nontender. LABORATORY DATA: White cell count 5.4, hemoglobin 10.6, and platelets of 227. BUN 10, creatinine 1.2. ASSESSMENT: This is a 61-year-old who presented with severe sepsis which has improved. PLAN: 1. Infectious disease. The patient is being treated with Zosyn and vancomycin for lower extremity ulcer, postoperative day number three for right foot ulcer debridement. Continue with current treatment to complete a seven-day course. 2. Patient presented with diabetic ketoacidosis which has resolved. 3. Patient has chronic kidney disease. 4. Patient has atrial fibrillation, on Coumadin. International normalized ratio (INR) is therapeutic. 5. Patient has obstructive sleep apnea (DANNIELLE) and could not tolerate treatment. 6. Patient has morbid obesity which complicates care. 7. Patient has a complicated social situation and my benefit from discharge with services. 8. Patient is being seen by physical therapy and is not yet safe for discharge. 9. Septic shock in the settng of hypotension treated with pressors /resolved MTDD
[2017-01-23] MEDS: WARFARIN SOD 3 MG TAB PO SCH (17:32)
[2017-01-23 18:00] VITALS: BP 145/66
[2017-01-23] MEDS ORDERED: SLF 3 ML SYR IV PRN (19:45)
[2017-01-23 22:00] VITALS: BP 136/76
[2017-01-23] MEDS: FLUCONAZOLE 100 MG TAB PO SCH (22:02)
[2017-01-24] MEDS: VANCOMYCIN HCL 750 MG, VIAL MATE ADAPTER 1 EACH in D5W 250 ML IV SCH ×2 (00:50→12:35)
[2017-01-24 02:00] VITALS: BP 136/78
[2017-01-24] MEDS: PIPERACILLIN/TAZOBACTAM SOD 2.25 GM in D5W MINI-BAG PLUS 50 ML IV SCH ×4 (02:00→20:10)
[2017-01-24] MEDS: SLF 3 ML SYR IV SCH ×3 (05:01→20:12)
[2017-01-24 06:00] VITALS: BP 123/63
[2017-01-24] MEDS: HumaLOG INSULIN (NovoLOG) PER UNIT SC SCH ×4 (06:48→20:11)
[2017-01-24 07:24] LABS: ALBUMIN 2.2 GM/DL (3.2-5.2); ALBUMIN/GLOBULIN RATIO 0.42 (1.00-1.93); BILIRUBIN,TOTAL 0.3 MG/DL (0.2-1.0); CALCIUM LEVEL 8.4 MG/DL (8.8-10.2); CREATININE FOR GFR 1.31 MG/DL (0.70-1.30); GLOMERULAR FILTRATION RATE 59.4 (>49); POTASSIUM SERUM 4.4 MEQ/L (3.5-5.1); TOTAL PROTEIN 7.5 GM/DL (6.4-8.2)
[2017-01-24] MEDS: VALSARTAN 80 MG TAB (DIOVAN) PO SCH (08:08)
[2017-01-24] MEDS: POTASSIUM CHLORIDE 10 MEQ SR TABLET PO SCH ×2 (08:09→20:11)
[2017-01-24] MEDS: ALLOPURINOL 300 MG TAB PO SCH (08:09)
[2017-01-24] MEDS: OMEPRAZOLE 20 MG CAP PO SCH (08:09)
[2017-01-24] MEDS: SENOKOT S TAB PO SCH ×2 (08:09→20:10)
[2017-01-24] MEDS: FUROSEMIDE 20 MG TAB PO SCH (08:09)
[2017-01-24] MEDS: ATORVASTATIN 20 MG TAB PO SCH (08:09)
[2017-01-24] MEDS: LEVEMIR (INSULIN DETEMIR) 1 UNITS/0.01ML SC SCH ×2 (08:10→20:11)
[2017-01-24] MEDS: SILVER SULFADIAZINE 1% CR 50 GM JAR TOP SCH ×2 (08:11→20:12)
[2017-01-24] MEDS: FLUTICASONE PROP 0.05% NASAL SPRAY 16 GM (FLONASE) SCH (08:11)
[2017-01-24] MEDS: NYSTATIN 100,000 UNITS/GM TOPICAL PWD 15 GM TOP SCH ×2 (08:12→20:12)
[2017-01-24] MEDS: ADVAIR DISKUS 500/50 INH PWD INH SCH ×2 (08:41→20:03)
[2017-01-24 10:00] VITALS: BP 132/68
--- NOTE | 2017-01-24 13:32 | IPN ---
DATE: 01/24/2017 Mr. Mott is feeling well. He has no complaints of pain, chest pain, shortness of breath. Has been tolerating a diet. He is looking forward to doing stairs today. Temperature is 98.7, pulse 63, respiratory rate 16, blood pressure 132/68, 98% on room air. Input and output notable for a positive fluid balance of 395. Three movements yesterday. He is awake, appropriately interactive, pleasantly conversant, making jokes. Mucous membranes moist. Neck supple. Breathing is symmetrical, diminished throughout Heart is distant sounding. Abdomen is soft, doughy, nontender. Bilateral feet are clean and dressed. White cell count is 5.4, hemoglobin 10.6, platelets 226 on 01/23/2017. Today, BUN 10, creatinine 1.3. My assessment is as follows: This is a 61-year-old septic shock in the settng of hypotension treated with pressors which has improved. Plan is as follows: 1. Infectious disease. Patient is being treated with Zosyn and vancomycin for lower extremity ulcer, postoperative day number #4 for right foot ulcer debridement. Plan to complete at least a 7-day course will improve coag negative staph. Continuing at this point on Zosyn and vancomycin as previously dosed. 2. Patient had diabetic ketoacidosis, which has resolved. Fingersticks are reasonably controlled with the current setting. 3. Patient has obstructive sleep apnea and has not tolerated treatment for that. 4. Patient has morbid obesity, which complicates care. 5. Patient has a complicated social situation and will benefit from discharge with services. 6. Patient is being seen with physical therapy. Plan to do stairs. He is not yet safe for discharge. [facility]
[2017-01-24 14:00] VITALS: BP 130/70
[2017-01-24] MEDS: WARFARIN SOD 3 MG TAB PO SCH (17:29)
[2017-01-24 18:00] VITALS: BP 120/70
[2017-01-24] MEDS: FLUCONAZOLE 100 MG TAB PO SCH (20:10)
[2017-01-24 22:00] VITALS: BP 120/78
[2017-01-25] MEDS: VANCOMYCIN HCL 750 MG, VIAL MATE ADAPTER 1 EACH in D5W 250 ML IV SCH ×2 (01:09→12:35)
[2017-01-25 02:00] VITALS: BP 139/96
[2017-01-25] MEDS: PIPERACILLIN/TAZOBACTAM SOD 2.25 GM in D5W MINI-BAG PLUS 50 ML IV SCH ×4 (03:00→21:38)
[2017-01-25] MEDS: SLF 3 ML SYR IV SCH ×3 (05:35→21:41)
[2017-01-25 06:00] VITALS: BP 136/98
[2017-01-25 06:55] LABS: INR 2.4
[2017-01-25 06:57] LABS: MEAN CORPUSCULAR HEMOGLOBIN 27.5 pg (27.0-33.0); MEAN CORPUSCULAR HGB CONC 30.4 g/dl (32.0-36.5); MEAN CORPUSCULAR VOLUME 90.5 fl (80.0-96.0); RED CELL DISTRIBUTION WIDTH 17.5 % (11.5-14.5); WHITE BLOOD COUNT 6.5 K/mm3 (4.0-10.0)
[2017-01-25 07:12] LABS: ANION GAP 2 MEQ/L (8-16); BLOOD UREA NITROGEN 11 MG/DL (7-18); CALCIUM LEVEL 8.5 MG/DL (8.8-10.2); CARBON DIOXIDE LEVEL 31 MEQ/L (21-32); CHLORIDE LEVEL 106 MEQ/L (98-107); CREATININE FOR GFR 1.24 MG/DL (0.70-1.30); GLOMERULAR FILTRATION RATE > 60.0 (>49); GLUCOSE, FASTING 62 MG/DL (80-110); POTASSIUM SERUM 4.1 MEQ/L (3.5-5.1); SODIUM LEVEL 139 MEQ/L (136-145)
[2017-01-25] MEDS: HumaLOG INSULIN (NovoLOG) PER UNIT SC SCH ×4 (07:30→21:00)
[2017-01-25] MEDS: ADVAIR DISKUS 500/50 INH PWD INH SCH ×2 (08:16→19:56)
[2017-01-25] MEDS: FUROSEMIDE 20 MG TAB PO SCH (08:35)
[2017-01-25] MEDS: SENOKOT S TAB PO SCH ×2 (08:35→21:40)
[2017-01-25] MEDS: NYSTATIN 100,000 UNITS/GM TOPICAL PWD 15 GM TOP SCH ×2 (08:35→21:40)
[2017-01-25] MEDS: OMEPRAZOLE 20 MG CAP PO SCH (08:35)
[2017-01-25] MEDS: ATORVASTATIN 20 MG TAB PO SCH (08:35)
[2017-01-25] MEDS: POTASSIUM CHLORIDE 10 MEQ SR TABLET PO SCH ×2 (08:35→21:39)
[2017-01-25] MEDS: VALSARTAN 80 MG TAB (DIOVAN) PO SCH (08:36)
[2017-01-25] MEDS: FLUTICASONE PROP 0.05% NASAL SPRAY 16 GM (FLONASE) SCH (08:36)
[2017-01-25] MEDS: ALLOPURINOL 300 MG TAB PO SCH (08:36)
[2017-01-25] MEDS: SANTYL OINT 30GM TOP SCH (08:37)
[2017-01-25] MEDS: SILVER SULFADIAZINE 1% CR 50 GM JAR TOP SCH ×2 (08:37→21:41)
[2017-01-25 10:00] VITALS: BP 157/85
[2017-01-25] MEDS: LEVEMIR (INSULIN DETEMIR) 1 UNITS/0.01ML SC SCH ×2 (12:35→21:40)
[2017-01-25 14:00] VITALS: BP 133/90
--- NOTE | 2017-01-25 16:17 | IPN ---
DATE: 01/25/2017 Mr. Mott is feeling okay today. He is somewhat despondent as he may not be able to go back to his house. There is some concern that it will be condemned by [facility]. He does not complain of any pain, chest pain, shortness of breath. He did fairly well with physical therapy. His fingerstick this morning was 62 on the basic metabolic panel. Temperature 98.4, pulse 122 at 10:00 a.m., on my exam was 80, respiratory rate 18, blood pressure 157/85, 95% on room air. Intake and output notable for a positive fluid balance of 2320. He did have nine bowel movements noted yesterday. He is awake, appropriately interactive, pleasantly conversant, seems somewhat anxious, most likely based on his social situation. Mucous membranes moist. Neck is supple. Breathing is symmetrical, diminished, distant sounding. Heart is distant sounding, not tachycardic. Radial pulses 2+. Capillary refill is less than 2 seconds. Abdomen is soft, doughy, nontender. Hyperactive bowel sounds. White cell count 6.5, hemoglobin 10.7, BUN is 11, creatinine 1.24 ASSESSMENT: This is a 61-year-old who presented with septic shock in the settng of hypotension treated with pressors, which has improved. PLAN: 1. Infectious disease. The patient continues on broad-spectrum antibiotics for lower extremity ulcer, postoperative day #5 for right foot ulcer debridement. Plan to continue at least a 7-day course covering coagulase-negative staphylococci (coag-negative staph). 2. The patient has diabetic ketoacidosis, which has resolved. Fingerstick is somewhat low on the fasting this morning. I will decrease his dose of Levemir. 3. The patient has chronic kidney disease, which appears to be in the normal range. 4. The patient has atrial fibrillation, on Coumadin. International normalized ratio (INR) is therapeutic. 5. The patient has obstructive sleep apnea (DANNIELLE) and could not tolerate outpatient treatment. 6. The patient has morbid obesity, which complicates care. 7. The patient has a complicated social situation. I have discussed this case at multidisciplinary rounds with the social work team. [facility]
[2017-01-25] MEDS: WARFARIN SOD 3 MG TAB PO SCH (17:59)
[2017-01-25 18:00] VITALS: BP 143/86
[2017-01-25] MEDS: FLUCONAZOLE 100 MG TAB PO SCH (21:40)
[2017-01-25 22:00] VITALS: BP 132/60
[2017-01-26] MEDS: VANCOMYCIN HCL 750 MG, VIAL MATE ADAPTER 1 EACH in D5W 250 ML IV SCH ×2 (00:45→12:58)
[2017-01-26 02:00] VITALS: BP 142/97
[2017-01-26] MEDS: PIPERACILLIN/TAZOBACTAM SOD 2.25 GM in D5W MINI-BAG PLUS 50 ML IV SCH ×4 (02:33→20:33)
[2017-01-26] MEDS: SLF 3 ML SYR IV SCH ×3 (05:23→20:36)
[2017-01-26 06:00] VITALS: BP 140/90
[2017-01-26 07:35] LABS: MEAN CORPUSCULAR HEMOGLOBIN 28.1 pg (27.0-33.0); MEAN CORPUSCULAR HGB CONC 31.3 g/dl (32.0-36.5); MEAN CORPUSCULAR VOLUME 89.8 fl (80.0-96.0); RED CELL DISTRIBUTION WIDTH 17.7 % (11.5-14.5); WHITE BLOOD COUNT 6.2 K/mm3 (4.0-10.0)
[2017-01-26 07:37] LABS: INR 2.29
[2017-01-26 08:09] LABS: CALCIUM LEVEL 8.2 MG/DL (8.8-10.2); CREATININE FOR GFR 1.39 MG/DL (0.70-1.30); GLOMERULAR FILTRATION RATE 55.5 (>49); POTASSIUM SERUM 4.4 MEQ/L (3.5-5.1)
[2017-01-26] MEDS: HumaLOG INSULIN (NovoLOG) PER UNIT SC SCH ×4 (08:49→20:46)
[2017-01-26] MEDS: POTASSIUM CHLORIDE 10 MEQ SR TABLET PO SCH ×2 (09:05→20:34)
[2017-01-26] MEDS: ATORVASTATIN 20 MG TAB PO SCH (09:05)
[2017-01-26] MEDS: SENOKOT S TAB PO SCH ×2 (09:05→20:34)
[2017-01-26] MEDS: ALLOPURINOL 300 MG TAB PO SCH (09:05)
[2017-01-26] MEDS: FUROSEMIDE 20 MG TAB PO SCH (09:05)
[2017-01-26] MEDS: VALSARTAN 80 MG TAB (DIOVAN) PO SCH (09:06)
[2017-01-26] MEDS: SILVER SULFADIAZINE 1% CR 50 GM JAR TOP SCH ×2 (09:06→20:48)
[2017-01-26] MEDS: NYSTATIN 100,000 UNITS/GM TOPICAL PWD 15 GM TOP SCH ×2 (09:06→20:35)
[2017-01-26] MEDS: LEVEMIR (INSULIN DETEMIR) 1 UNITS/0.01ML SC SCH ×2 (09:06→20:46)
[2017-01-26] MEDS: FLUTICASONE PROP 0.05% NASAL SPRAY 16 GM (FLONASE) SCH (09:06)
[2017-01-26] MEDS: OMEPRAZOLE 20 MG CAP PO SCH (09:06)
[2017-01-26] MEDS: ADVAIR DISKUS 500/50 INH PWD INH SCH ×2 (11:13→20:12)
[2017-01-26 14:00] VITALS: BP 127/76
--- NOTE | 2017-01-26 15:22 | IPN ---
DATE: 01/26/2017 Mr. Mott is feeling well today. He has no complaints of pain, chest pain, or shortness of breath. Still concerned about his home situation. He did quite well with physical therapy. Temperature 98.6, pulse 69, respiratory rate 19, blood pressure 140/90, 96% on nasal cannula. Intake and output notable for a positive fluid balance of 2995. Weight 163.3 kg with a body mass index of 50.2. He is awake, appropriately interactive, somewhat anxious. Mucous membranes moist. Neck supple. Breathing is symmetrical, distant. Heart is in a regular rate and rhythm, distant sounding. Abdomen soft. Hypoactive bowel sounds. INR is 2.29, hemoglobin 10.5, creatinine 1.39. My assessment is as follows: This is a 61-year-old who presented with septic shock in the settng of hypotension treated with pressors which has improved. Plan is as follows: 1. Infectious disease. Patient continues on broad-spectrum antibiotics for a lower extremity ulcer. Postoperative day #6 for right foot ulcer debridement. Plan to continue at least a 7 day course, covering coagulase-negative Staphylococcus, that is 7 days counted from the postoperative day. 2. The patient had diabetic ketoacidosis which has resolved. Finger stick is within reasonable limits. Will continue the current insulin dosing that is ordered. 3. The patient has chronic kidney disease, probably in his normal range at this point. 4. The patient has atrial fibrillation, appeared somewhat regular on exam. INR is therapeutic. 5. The patient has obstructive sleep apnea (DANNIELLE). Has not tolerated outpatient obstructive sleep apnea (DANNIELLE) treatment. 6. The patient needs a walker for home. A handwritten prescription was supplied for a bariatric rolling walker. 7. The patient has morbid obesity which complicates care. 8. The patient has a complicated social situation. I have discussed this case at length with the social work team. [facility]
[2017-01-26] MEDS: WARFARIN SOD 3 MG TAB PO SCH (17:55)
[2017-01-26] MEDS: FLUCONAZOLE 100 MG TAB PO SCH (20:34)
[2017-01-26 22:00] VITALS: BP 157/79
[2017-01-27] MEDS: VANCOMYCIN HCL 750 MG, VIAL MATE ADAPTER 1 EACH in D5W 250 ML IV SCH ×2 (00:48→13:31)
[2017-01-27] MEDS: PIPERACILLIN/TAZOBACTAM SOD 2.25 GM in D5W MINI-BAG PLUS 50 ML IV SCH ×4 (01:49→19:52)
[2017-01-27 02:00] VITALS: BP 150/82
[2017-01-27] MEDS: SLF 3 ML SYR IV SCH ×3 (05:35→20:07)
[2017-01-27 06:00] VITALS: BP 129/88
[2017-01-27 06:38] LABS: MEAN CORPUSCULAR HEMOGLOBIN 27.8 pg (27.0-33.0); MEAN CORPUSCULAR VOLUME 89.9 fl (80.0-96.0); RED CELL DISTRIBUTION WIDTH 17.4 % (11.5-14.5); WHITE BLOOD COUNT 5.4 K/mm3 (4.0-10.0)
[2017-01-27 06:49] LABS: ANION GAP 8 MEQ/L (8-16); BLOOD UREA NITROGEN 13 MG/DL (7-18); CALCIUM LEVEL 8.7 MG/DL (8.8-10.2); CARBON DIOXIDE LEVEL 27 MEQ/L (21-32); CHLORIDE LEVEL 104 MEQ/L (98-107); CREATININE FOR GFR 1.29 MG/DL (0.70-1.30); GLOMERULAR FILTRATION RATE > 60.0 (>49); GLUCOSE, FASTING 188 MG/DL (80-110); POTASSIUM SERUM 4.3 MEQ/L (3.5-5.1); SODIUM LEVEL 139 MEQ/L (136-145)
[2017-01-27 06:50] LABS: INR 2.34
[2017-01-27] MEDS: ADVAIR DISKUS 500/50 INH PWD INH SCH ×2 (07:30→19:39)
[2017-01-27] MEDS: HumaLOG INSULIN (NovoLOG) PER UNIT SC SCH ×4 (09:54→21:00)
[2017-01-27] MEDS: ATORVASTATIN 20 MG TAB PO SCH (09:54)
[2017-01-27] MEDS: ALLOPURINOL 300 MG TAB PO SCH (09:54)
[2017-01-27] MEDS: VALSARTAN 80 MG TAB (DIOVAN) PO SCH (09:55)
[2017-01-27] MEDS: FUROSEMIDE 20 MG TAB PO SCH (09:55)
[2017-01-27] MEDS: OMEPRAZOLE 20 MG CAP PO SCH (09:56)
[2017-01-27] MEDS: POTASSIUM CHLORIDE 10 MEQ SR TABLET PO SCH ×2 (09:56→20:05)
[2017-01-27] MEDS: SENOKOT S TAB PO SCH ×2 (09:56→20:05)
[2017-01-27] MEDS: LEVEMIR (INSULIN DETEMIR) 1 UNITS/0.01ML SC SCH ×2 (09:57→20:21)
[2017-01-27] MEDS: NYSTATIN 100,000 UNITS/GM TOPICAL PWD 15 GM TOP SCH ×2 (09:58→20:06)
[2017-01-27] MEDS: SILVER SULFADIAZINE 1% CR 50 GM JAR TOP SCH ×2 (09:59→20:06)
[2017-01-27] MEDS: FLUTICASONE PROP 0.05% NASAL SPRAY 16 GM (FLONASE) SCH (09:59)
[2017-01-27 10:00] VITALS: BP 156/77
--- NOTE | 2017-01-27 11:22 | IPN ---
DATE OF SERVICE: 01/27/2017 Mr. Mott is feeling well today. He has been out of bed, sitting in the chair. Still quite concerned about his discharge plan. No chest pain. Not short of breath. Tolerating a diet. Temperature 97.7, pulse 107, respiratory rate 18, blood pressure 129/88, 92% on room air. Intake and output (I and O) notable for a positive fluid balance of 2580. Four bowel movements yesterday. He is awake, appropriately interactive, sitting in a chair. Mucous membranes moist. Neck supple. Breathing is symmetrical, rested. Heart is distant-sounding. Abdomen soft. Hypoactive bowel sounds. Bilateral feet are cleanly dressed. White cell count is 5.4, hemoglobin 10.5, platelets of 265. INR is 2.34. BUN is 129. My assessment is as follows: This is a 61-year-old who presented with septic shock in the settng of hypotension treated with pressors, which has resolved. The plan is as follows: 1. Infectious disease. Patient status post debridement of lower extremity ulcer. This is postoperative day #7 for right foot ulcer debridement. Plan to continue vancomycin until tomorrow, at which point it will be discontinued. 2. The patient had diabetic ketoacidosis, which has resolved. Fingersticks within reasonable limits. Continue with current insulin dosing. 3. The patient has chronic kidney disease, which appears to be his normal range. 4. The patient has atrial fibrillation. International normalized ratio (INR) is therapeutic. 5. The patient has obstructive sleep apnea (DANNIELLE). Has not tolerated outpatient bilateral positive airway pressure (BiPAP). 6. The patient has morbid obesity, which complicates care. 7. The patient has a complicated social situation. Based on discussions with Elton Lee, will hopefully be able to pursue a discharge as early as 01/29/2017. [facility]
[2017-01-27] MEDS: SANTYL OINT 30GM TOP SCH (13:30)
[2017-01-27 14:00] VITALS: BP 161/76
[2017-01-27] MEDS: WARFARIN SOD 3 MG TAB PO SCH (17:44)
[2017-01-27 18:00] VITALS: BP 124/84
[2017-01-27] MEDS: FLUCONAZOLE 100 MG TAB PO SCH (20:04)
[2017-01-27 22:00] VITALS: BP 152/86
[2017-01-28] MEDS: VANCOMYCIN HCL 750 MG, VIAL MATE ADAPTER 1 EACH in D5W 250 ML IV SCH (00:52)
[2017-01-28 02:00] VITALS: BP 160/84
[2017-01-28] MEDS: PIPERACILLIN/TAZOBACTAM SOD 2.25 GM in D5W MINI-BAG PLUS 50 ML IV SCH ×2 (02:12→08:21)
[2017-01-28 06:00] VITALS: BP 150/84
[2017-01-28] MEDS: SLF 3 ML SYR IV SCH ×3 (06:00→21:14)
[2017-01-28 06:07] LABS: MEAN CORPUSCULAR HEMOGLOBIN 27.6 pg (27.0-33.0); MEAN CORPUSCULAR HGB CONC 30.2 g/dl (32.0-36.5); MEAN CORPUSCULAR VOLUME 91.4 fl (80.0-96.0); RED CELL DISTRIBUTION WIDTH 17.4 % (11.5-14.5); WHITE BLOOD COUNT 5.6 K/mm3 (4.0-10.0)
[2017-01-28 06:19] LABS: ANION GAP 7 MEQ/L (8-16); BLOOD UREA NITROGEN 15 MG/DL (7-18); CALCIUM LEVEL 8.5 MG/DL (8.8-10.2); CARBON DIOXIDE LEVEL 27 MEQ/L (21-32); CHLORIDE LEVEL 105 MEQ/L (98-107); CREATININE FOR GFR 1.27 MG/DL (0.70-1.30); GLOMERULAR FILTRATION RATE > 60.0 (>49); GLUCOSE, FASTING 107 MG/DL (80-110); POTASSIUM SERUM 4.4 MEQ/L (3.5-5.1); SODIUM LEVEL 139 MEQ/L (136-145)
[2017-01-28 06:32] LABS: INR 2.15
[2017-01-28] MEDS: HumaLOG INSULIN (NovoLOG) PER UNIT SC SCH ×4 (07:30→21:00)
[2017-01-28] MEDS: ADVAIR DISKUS 500/50 INH PWD INH SCH ×2 (07:44→19:45)
[2017-01-28] MEDS: NYSTATIN 100,000 UNITS/GM TOPICAL PWD 15 GM TOP SCH ×2 (08:21→21:13)
[2017-01-28] MEDS: FLUTICASONE PROP 0.05% NASAL SPRAY 16 GM (FLONASE) SCH (08:21)
[2017-01-28] MEDS: ATORVASTATIN 20 MG TAB PO SCH (08:22)
[2017-01-28] MEDS: SILVER SULFADIAZINE 1% CR 50 GM JAR TOP SCH ×2 (08:22→21:14)
[2017-01-28] MEDS: FUROSEMIDE 20 MG TAB PO SCH (08:22)
[2017-01-28] MEDS: POTASSIUM CHLORIDE 10 MEQ SR TABLET PO SCH ×2 (08:23→21:12)
[2017-01-28] MEDS: VALSARTAN 80 MG TAB (DIOVAN) PO SCH (08:23)
[2017-01-28] MEDS: OMEPRAZOLE 20 MG CAP PO SCH (08:23)
[2017-01-28] MEDS: ALLOPURINOL 300 MG TAB PO SCH (08:23)
[2017-01-28] MEDS: LEVEMIR (INSULIN DETEMIR) 1 UNITS/0.01ML SC SCH ×2 (08:24→21:13)
[2017-01-28] MEDS: SENOKOT S TAB PO SCH ×2 (08:24→21:00)
[2017-01-28 10:00] VITALS: BP 148/90
--- NOTE | 2017-01-28 12:34 | IPN ---
DATE: 01/28/2017 Mr. Mott is feeling well today. He wants to get up and walk around. The plan is to walk another 250 feet at least three times today. He is tolerating diet. No complaints of pain, chest pain, or shortness of breath. Still quite worried about his discharge plan. Temperature is 98.9, pulse 96, respirations 18, blood pressure 148/90, 95% on room air. Intake and output (I and O) notable for positive fluid balance of 1990. Two bowel movements yesterday. He is awake, appropriately interactive. Pleasantly conversant. Breathing is symmetric. He has regular rate and rhythm. Normal S1, S2. Abdomen is soft, distended. Nontender. Active bowel sounds. INR is 2.15. Hemoglobin 10.4, and creatinine of 1.27. ASSESSMENT: 61-year-old who presented with septic shock in the settng of hypotension treated with pressors which has resolved. 1. Infectious disease. The patient has been treated for lower extremity ulcers. Postoperative day #8 for right foot debridement. Antibiotics are discontinued today. 2. The patient has diabetic ketoacidosis which has resolved. Fingersticks are within reasonable limits. Continue with insulin as dosed. 3. The patient has chronic kidney disease, at its normal range. 4. The patient has atrial fibrillation. Rate is controlled. INR is therapeutic. 5. The patient has obstructive sleep apnea. Has not tolerated outpatient BiPAP. 6. The patient is morbidly obese which complicates care. 7. The patient has ongoing concern about his social situation. Will discuss at multidisciplinary rounds in the morning and plan for discharge hopefully as early as tomorrow. [facility]
[2017-01-28 14:00] VITALS: BP 140/80
[2017-01-28] MEDS: WARFARIN SOD 3 MG TAB PO SCH (17:09)
[2017-01-28] MEDS: FLUCONAZOLE 100 MG TAB PO SCH (21:12)
[2017-01-28 22:00] VITALS: BP 129/91
[2017-01-29 02:00] VITALS: BP 139/72
[2017-01-29 06:00] VITALS: BP 149/73
[2017-01-29 06:09] LABS: MEAN CORPUSCULAR HEMOGLOBIN 27.8 pg (27.0-33.0); MEAN CORPUSCULAR HGB CONC 30.5 g/dl (32.0-36.5); MEAN CORPUSCULAR VOLUME 91.2 fl (80.0-96.0); RED CELL DISTRIBUTION WIDTH 17.5 % (11.5-14.5); WHITE BLOOD COUNT 5.9 K/mm3 (4.0-10.0)
[2017-01-29 06:19] LABS: INR 2.37
[2017-01-29] MEDS: SLF 3 ML SYR IV SCH ×2 (06:29→11:44)
[2017-01-29 06:30] LABS: ANION GAP 5 MEQ/L (8-16); BLOOD UREA NITROGEN 13 MG/DL (7-18); CALCIUM LEVEL 8.7 MG/DL (8.8-10.2); CARBON DIOXIDE LEVEL 29 MEQ/L (21-32); CHLORIDE LEVEL 105 MEQ/L (98-107); CREATININE FOR GFR 1.08 MG/DL (0.70-1.30); GLOMERULAR FILTRATION RATE > 60.0 (>49); GLUCOSE, FASTING 97 MG/DL (80-110); POTASSIUM SERUM 4.3 MEQ/L (3.5-5.1); SODIUM LEVEL 139 MEQ/L (136-145)
[2017-01-29] MEDS: HumaLOG INSULIN (NovoLOG) PER UNIT SC SCH ×3 (07:14→17:26)
[2017-01-29] MEDS: SENOKOT S TAB PO SCH (07:33)
[2017-01-29] MEDS: ADVAIR DISKUS 500/50 INH PWD INH SCH (07:46)
[2017-01-29] MEDS: NYSTATIN 100,000 UNITS/GM TOPICAL PWD 15 GM TOP SCH (08:40)
[2017-01-29] MEDS: FUROSEMIDE 20 MG TAB PO SCH (08:40)
[2017-01-29] MEDS: FLUTICASONE PROP 0.05% NASAL SPRAY 16 GM (FLONASE) SCH (08:40)
[2017-01-29 08:41] VITALS: BP 149/73
[2017-01-29] MEDS: ATORVASTATIN 20 MG TAB PO SCH (08:41)
[2017-01-29] MEDS: POTASSIUM CHLORIDE 10 MEQ SR TABLET PO SCH ×2 (08:41→17:25)
[2017-01-29] MEDS: VALSARTAN 80 MG TAB (DIOVAN) PO SCH (08:41)
[2017-01-29] MEDS: SILVER SULFADIAZINE 1% CR 50 GM JAR TOP SCH (08:41)
[2017-01-29] MEDS: ALLOPURINOL 300 MG TAB PO SCH (08:41)
[2017-01-29] MEDS: OMEPRAZOLE 20 MG CAP PO SCH (08:41)
[2017-01-29] MEDS: LEVEMIR (INSULIN DETEMIR) 1 UNITS/0.01ML SC SCH (08:42)
[2017-01-29] MEDS: SANTYL OINT 30GM TOP SCH (08:43)
[2017-01-29 10:00] VITALS: BP 152/80
[2017-01-29] MEDS ORDERED: DIOV80TA3 PO (11:17)
[2017-01-29] MEDS ORDERED: SANT250O8 TOP (11:17)
[2017-01-29] MEDS ORDERED: FURO20TA2 PO (11:17)
[2017-01-29] MEDS ORDERED: NYST10PW TOP (11:17)
[2017-01-29] MEDS ORDERED: INSULANT SC (11:17)
[2017-01-29] MEDS ORDERED: COUM1TAB19 PO (11:17)
[2017-01-29] MEDS ORDERED: FLUC10TA PO (11:17)
[2017-01-29] MEDS ORDERED: SILV50CR TOP (11:17)
[2017-01-29] MEDS ORDERED: SENN1TAB2 PO (11:17)
[2017-01-29 14:00] VITALS: BP 160/72
--- NOTE | 2017-01-29 16:07 | DSES ---
DATE OF ADMISSION: 01/19/2017 DATE OF DISCHARGE: 01/29/2017 Specialists involved in his care include: Dr. Petersen and Dr. Zambrano. Procedures performed during his stay included: Placement of left subclavian central line, debridement right foot. DISCHARGE DIAGNOSES: 1. Diabetic ketoacidosis. 2. Severe sepsis. 3. Bilateral lower extremity edema. 4. Abnormal EKG. 5. Chronic atrial fibrillation. 6. Hyperkalemia. 7. Hyponatremia. 8. Hypomagnesemia. 9. Protein-calorie malnutrition. 10. Anemia. 11. Chronic obstructive pulmonary disease (COPD). 12. Acute on chronic kidney disease. 13. Suspected congestive heart failure with preserved left ventricular ejection fraction. 14. Hypertension. 15. Gout. 16. Complicated social situation. 17. Hyperlipidemia. 18. Vitamin D deficiency. 19. Allergic rhinitis. 20. Gastroesophageal reflux disease (GERD). 21. Cellulitis of the left lower extremity. 22. Bilateral lower extremity wounds. SUMMARY OF HIS HOSPITALIZATION: The patient was admitted to the hospitalist service. A central line was placed. He required pressors and fluid resuscitation. Hemoglobin A1c was noted to be 12.6. He was treated as having an infectious etiology for this event with the source being bilateral foot wound and cellulitis. He was seen by Dr. Petersen and Dr. Zambrano. Dr. Petersen did go on to debride his right foot. He was treated with an appropriate course of antibiotics with improvement. He had a relatively prolonged hospital course which was complicated by his social situation, as his previous living arrangements were being evaluated by the hydrographical technical officer for appropriate habitability. On the day of discharge, he is feeling well. He is able to ambulate without difficulty while using a walker. He has been successful with stairs as well. Temperature is 98.4, pulse 116, respiratory rate 18, blood pressure 152/80, 98% on room air. He is awake, appropriately interactive, somewhat anxious. Breathing is symmetrically diminished. Heart is in a regular rate and rhythm. He is borderline tachycardic on my examination. Abdomen is soft, doughy, nontender. Bilateral lower extremities are cleanly dressed. LABORATORY DATA: White cell count 5.9, hemoglobin 10.4, and platelets of 264. BUN 13, creatinine 1.08, fingersticks have been reasonably well-controlled at generally less than 200. DISCHARGE INSTRUCTIONS: Include the followin. Followup with Dr. Petersen per his instructions. 2. Activity as tolerated. 3. Consistent-carbohydrate diet. DISCHARGE MEDICATIONS: Continue: - Santyl one dose topically every two days - fluconazole 200 mg by mouth daily at bedtime for five days - Lasix 60 mg by mouth daily - Nystatin topically twice a day - Senokot-S one tablet by mouth twice a day - silver sulfadiazine topically twice a day - Diovan 160 mg by mouth daily - Coumadin 3 mg by mouth daily - allopurinol 300 mg by mouth daily - atorvastatin 40 mg by mouth daily - vitamin D supplement 50,000 units once a week - fluticasone nasal spray two sprays in each nostril daily - metformin 1000 mg twice a day - omeprazole 20 mg by mouth daily - potassium chloride 40 mEq by mouth twice a day - Advair 500/50 inhaled twice a day - Lantus is changed to 45 units subcutaneously twice a day Discontinue atenolol. Discontinue clonidine. Discontinue diltiazem. Discontinue previous dose of Lasix. Discontinue Valsartan/hydrochlorothiazide. Discontinue previous dose of Coumadin. Please note that the patient has multiple medication changes. There is a suspicion that medication changes may be related to noncompliance resulting in his home medication doses being increased and/or new drugs being added.
[2017-01-29] MEDS: WARFARIN SOD 3 MG TAB PO SCH (17:24)
[2017-01-29] MEDS: FLUCONAZOLE 100 MG TAB PO SCH (17:25)
== END 2017-01-29 17:55 | disposition home or self-care (01) | DRG 720 ==
LOC: M ICU 01-19 00:09 → M MSPAV 01-22 10:05
PROVIDERS: ADMIT Internal Medicine; ATTEND Internal Medicine
PROC: 02HV33Z Insertion of Infusion Device into Superior Vena Cava, Percutaneous Approach (ICD-10-PCS; principal; 2017-01-19)
DX: A41.9 Sepsis, unspecified organism (principal); E87.0 Hyperosmolality and hypernatremia; E46 Unspecified protein-calorie malnutrition; N18.4 Chronic kidney disease, stage 4 (severe); E11.65 Type 2 diabetes mellitus with hyperglycemia; I48.91 Unspecified atrial fibrillation; N17.9 Acute kidney failure, unspecified; E87.1 Hypo-osmolality and hyponatremia; I50.9 Heart failure, unspecified; E83.42 Hypomagnesemia; E87.5 Hyperkalemia; E55.9 Vitamin D deficiency, unspecified; J44.9 Chronic obstructive pulmonary disease, unspecified; E66.01 Morbid (severe) obesity due to excess calories; L03.116 Cellulitis of left lower limb; K21.9 Gastro-esophageal reflux disease without esophagitis; D64.9 Anemia, unspecified; M10.9 Gout, unspecified; E78.5 Hyperlipidemia, unspecified; J30.9 Allergic rhinitis, unspecified; L03.115 Cellulitis of right lower limb; Z79.899 Other long term (current) drug therapy; Z79.01 Long term (current) use of anticoagulants; I87.8 Other specified disorders of veins; Z91.19 Patient's noncompliance with other medical treatment and regimen; G47.33 Obstructive sleep apnea (adult) (pediatric); R65.20 Severe sepsis without septic shock

== ENCOUNTER 2017-03-19 12:29 | Emergency (ER) | payer OTHER ==
[~2017-03-19] VITALS: Ht 182.9 cm; Wt 165.6 kg
[~2017-03-19 12:29] MED LIST: ADV500INH INH; ATEN100T PO; ATOR40TA PO; CLON3PA TD; COUM1TAB19 PO; DILT1TAB7 PO; DIOV80TA3 PO; FLUC10TA PO; FLUT1SPR2; FURO1TAB15 PO; FURO20TA2 PO; INSULANT SC; METF1000 PO; NYST10PW TOP; OMEP20CA3 PO; POTA10CA PO; SANT250O8 TOP; SENN1TAB2 PO; SILV50CR TOP; VALS320T3 PO; VITA50003 PO; WARF-23 PO; ZYLO300T4 PO
[2017-03-19] MEDS: METOPROLOL 5 MG/5 ML VIAL IV SCH ×4 (13:07→13:45)
[2017-03-19] MEDS ORDERED: METOPROLOL TART 25 MG TABLET PO ONE ×2 (13:15→18:15)
[2017-03-19 13:18] LABS: BASO % 0.4 % (0.0-1.0); EOS # 0.2 K/mm3 (0.0-0.50); LARGE UNSTAINED CELL # 0.1 K/mm3 (0.0-0.4); LARGE UNSTAINED CELL % 0.8 % (0.0-4.0); LYMPH # 0.6 K/mm3 (1.5-4.5); LYMPH % 7.3 % (24.0-44.0); MEAN CORPUSCULAR HEMOGLOBIN 28.8 pg (27.0-33.0); MEAN CORPUSCULAR HGB CONC 31.6 g/dl (32.0-36.5); MEAN CORPUSCULAR VOLUME 91.2 fl (80.0-96.0); MONO # 0.3 K/mm3 (0.0-0.8); MONO % 4.3 % (0.0-5.0); NEUTROPHILS # 6.7 K/mm3 (1.8-7.7); NEUTROPHILS % 85.2 % (36.0-66.0); PLATELET COUNT, AUTOMATED 380 k/mm3 (150-450); RED CELL DISTRIBUTION WIDTH 16.8 % (11.5-14.5); WHITE BLOOD COUNT 7.9 K/mm3 (4.0-10.0)
[2017-03-19 13:40] LABS: INR 2.18
--- NOTE | 2017-03-19 13:44 | REP ---
Clinical: Chest pain . Comparison: 01/19/2017 . Findings: The mediastinum and cardiac silhouette are stable and mild cardiomegaly cannot be excluded. Evaluation is limited by portable technique and underpenetration which accentuate the pulmonary vasculature and interstitium - pulmonary vascular congestion cannot be excluded. The lung latif are clear without acute focal consolidation, effusion, or pneumothorax. Skeletal structures are intact. Impression: Stable examination. Mild cardiomegaly. No focal consolidation. Cannot exclude mild vascular congestion. Signed by Taran Oquendo MD 03/19/2017 01:36 P
[2017-03-19 14:16] LABS: ALBUMIN 2.5 GM/DL (3.2-5.2); ALBUMIN/GLOBULIN RATIO 0.54 (1.00-1.93); ALKALINE PHOSPHATASE 68 U/L (45-117); ALT/SGPT 13 U/L (12-78); ANION GAP 9 MEQ/L (8-16); AST/SGOT 14 U/L (15-37); BILIRUBIN,DIRECT 0.1 MG/DL (0.0-0.2); BILIRUBIN,TOTAL 0.3 MG/DL (0.2-1.0); BLOOD UREA NITROGEN 28 MG/DL (7-18); CALCIUM LEVEL 7.8 MG/DL (8.8-10.2); CARBON DIOXIDE LEVEL 28 MEQ/L (21-32); CHLORIDE LEVEL 105 MEQ/L (98-107); CREATININE FOR GFR 1.29 MG/DL (0.70-1.30); FREE T4 1.19 NG/DL (0.76-1.46); GLOMERULAR FILTRATION RATE > 60.0 (>49); GLUCOSE, FASTING 43 MG/DL (80-110); POTASSIUM SERUM 4.3 MEQ/L (3.5-5.1); SODIUM LEVEL 142 MEQ/L (136-145); TOTAL PROTEIN 7.1 GM/DL (6.4-8.2)
--- NOTE | 2017-03-19 15:03 | ECGEPIP ---
Stationary ECG Study [facility] - ED Test Date: 2017-03-19 Pat Name: KYLER EPPS Department: Room: - Gender: M Grinder Operator: : [id number] Requested By: Maryellen Rodriguez Order Number: [id number] Reading MD: Artem Luna Measurements Intervals [place] Rate: 142 P: CO: 0 QRS: -23 QRSD: 101 T: 71 QT: 310 QTc: 477 Interpretive Statements ATRIAL FIBRILLATION WITH RAPID VENTRICULAR RESPONSE BORDERLINE LEFT AXIS DEVIATION RATE INCREASE FROM 01/19/17 Electronically Signed On 03-19-2017 15:03:33 EDT by Artem Luna
[2017-03-19] MEDS ORDERED: METOPROLOL TART 50 MG TAB PO ONE (15:45)
[2017-03-19] MEDS ORDERED: DIGOXIN INJ 0.5 MG/2 ML AMP (J1160) IV STA (18:00)
[2017-03-19 18:14] VITALS: BP 146/89
[2017-03-19] MEDS ORDERED: ATEN50TA2 PO (19:11)
[2017-03-19] MEDS ORDERED: DIGI1TAB3 PO (19:11)
[2017-03-19] MEDS ORDERED: ATENOLOL 50 MG TAB PO ONE (19:15)
[2017-03-19 19:30] VITALS: BP 166/75
== END 2017-03-19 19:50 | disposition home or self-care (01) ==
LOC: M ED 13:03
DX: I48.91 Unspecified atrial fibrillation (principal); I51.7 Cardiomegaly; I50.9 Heart failure, unspecified; E11.9 Type 2 diabetes mellitus without complications; G47.30 Sleep apnea, unspecified; E78.00 Pure hypercholesterolemia, unspecified; Z86.73 Personal history of transient ischemic attack (TIA), and cerebral infarction without residual deficits; Z79.4 Long term (current) use of insulin; Z79.899 Other long term (current) drug therapy

== ENCOUNTER → 2017-04-23 | Outpatient (CLI) | payer OTHER ==
[~2017-04-23] MED LIST changes: +ATEN50TA2 PO; +DIGI1TAB3 PO
--- NOTE | 2017-04-23 16:26 | REP ---
Left lower extremity duplex venous ultrasound: History: Venous insufficiency. Findings: The deep veins are anechoic and fully compressible from the groin to the popliteal fossa in the left lower extremity on two-dimensional scanning. Color flow and spectral Doppler interrogation are unremarkable. There is no evidence of DVT. Reflux examination: There was no reflux identified in either the superficial or deep venous system. The greater saphenous vein measures 7.7 mm in AP dimension at the proximal thigh. Greater saphenous vein measures 5.9 mm in AP dimension at midthigh and 5.8 mm at the knee. Impression: No significant reflux seen. No evidence of deep vein thrombosis. Signed by Chace Phillips MD 04/23/2017 04:47 P
== END ==
LOC: M RAD 11:42
PROVIDERS: ATTEND Surgery
DX: I87.312 Chronic venous hypertension (idiopathic) with ulcer of left lower extremity (principal)

== ENCOUNTER → 2017-05-07 | Outpatient (CLI) | payer OTHER ==
[~2017-05-07] MED LIST changes: -ATOR40TA PO; +ATOR40TA75 PO; -FURO1TAB15 PO; +FURO80TA2 PO; -METF1000 PO; +METF10004 PO; +VITA1CAP40 PO; -VITA50003 PO
--- NOTE | 2017-05-07 16:58 | REP ---
Right lower extremity duplex venous ultrasound with reflux evaluation: History: Venous hypertension with ulcer. Evaluate for reflux. The deep veins are anechoic and fully compressible from the groin to the popliteal fossa in the right lower extremity on two-dimensional scanning. Color flow and spectral Doppler interrogation show no evidence to suggest venous thrombosis in the deep system. Moderate reflux is seen in the greater saphenous vein below the knee, duration of 5.3 seconds. The greater saphenous vein below the knee measures 5 mm in AP dimension. There is mild reflux in the lesser saphenous vein with the patient standing. There is minimal reflux of 1.4 seconds in duration in the greater saphenous vein at the proximal saphenofemoral junction where it measures 8.5 mm. No reflux is seen at midthigh or at the knee. The mid thigh dimension of the greater saphenous vein is 7.6 mm and the knee dimension of the greater saphenous vein is 6.9 mm. No other reflux is seen. Impression: 1. No evidence of deep vein thrombosis. 2. Moderate reflux is seen in the greater saphenous vein below the knee and mild reflux in the lesser saphenous vein with the patient standing. Signed by Chace Phillips MD 05/07/2017 05:02 P
== END ==
LOC: M RAD 10:45
PROVIDERS: ATTEND Surgery
DX: I87.311 Chronic venous hypertension (idiopathic) with ulcer of right lower extremity (principal)

== ENCOUNTER 2018-03-13 21:00 | Inpatient (IN) | payer OTHER ==
[2018-03-13] MEDS: ATORVASTATIN 20 MG TAB PO (21:00)
[2018-03-13] MEDS: NS 1,000 ML IV ×3 (22:01→23:57)
[2018-03-13 22:04] LABS: BEDSIDE GLUCOSE 253 MG/DL (80-115)
[2018-03-13 22:10] LABS: HEMATOCRIT 28.7 % (42.0-52.0); HEMOGLOBIN 9.2 g/dl (13.5-17.5); MEAN CORPUSCULAR HEMOGLOBIN 28.6 pg (27.0-33.0); MEAN CORPUSCULAR HGB CONC 32.1 g/dl (32.0-36.5); MEAN CORPUSCULAR VOLUME 89.1 fl (80.0-96.0); PLATELET COUNT, AUTOMATED 178 10^3/uL (150-450); RED BLOOD COUNT 3.22 10^6/uL (4.30-6.10); RED CELL DISTRIBUTION WIDTH 15.8 % (11.5-14.5); WHITE BLOOD COUNT 20.2 10^3/uL (4.0-10.0)
[2018-03-13 22:11] LABS: ADD MANUAL DIFFER YES; DIFF SLIDE NUMBER 337; POSITIVE DIFF POS FLAG; POSITIVE MORPH POS FLAG
[2018-03-13 22:16] LABS: VENOUS HCO3 15.2 MEQ/L (23.0-27.0); VENOUS O2 SATURATION 84.3 % (60.0-80.0); VENOUS PARTIAL PRESSURE CO2 39.3 mmHg (38.0-50.0); VENOUS PARTIAL PRESSURE O2 56.9 mmHg (30.0-50.0); VENOUS PH 7.204 UNITS (7.330-7.430); VENOUS STANDARD HCO3 14.8 MEQ/L; VENOUS TOTAL CO2 16.4 MEQ/L (24.0-28.0)
[2018-03-13 22:30] LABS: ALBUMIN 1.9 GM/DL (3.2-5.2); ALBUMIN/GLOBULIN RATIO 0.43 (1.00-1.93); ALKALINE PHOSPHATASE 111 U/L (45-117); ALT/SGPT 29 U/L (12-78); ANION GAP 13 MEQ/L (8-16); AST/SGOT 103 U/L (7-37); BANDS 3 % (< 11); BILIRUBIN,DIRECT 0.3 MG/DL (0.0-0.2); BILIRUBIN,TOTAL 0.5 MG/DL (0.2-1.0); BLOOD UREA NITROGEN 90 MG/DL (7-18); CALCIUM LEVEL 6.5 MG/DL (8.8-10.2); CARBON DIOXIDE LEVEL 18 MEQ/L (21-32); CHLORIDE LEVEL 98 MEQ/L (98-107); CREATININE FOR GFR 4.41 MG/DL (0.70-1.30); GLOMERULAR FILTRATION RATE 14.6 (>49); GLUCOSE, FASTING 229 MG/DL (70-100); LYMPHOCYTES 2 % (16-52); METAMYELOCYTES 1 % (0-0); MONOCYTES 2 % (0-8); NEUTROPHILS 92 % (35-75); POTASSIUM SERUM 4.5 MEQ/L (3.5-5.1); SODIUM LEVEL 129 MEQ/L (136-145); TOTAL PROTEIN 6.3 GM/DL (6.4-8.2)
[2018-03-13 22:31] LABS: TOXIC GRANULATION 2+
[2018-03-13 22:31] LABS: LACTIC ACID SEPSIS PROTOCOL 1.6 MMOL/L (0.4-2.0)
[2018-03-13 22:32] LABS: TOXIC VACUOLATION 1+
[2018-03-13 22:33] LABS: PLATELET ESTIMATE NORMAL (NORMAL)
[2018-03-13] MEDS ORDERED: LIDOCAINE 2% MDV 20 ML VIAL As Ordered (23:40)
[2018-03-14] MEDS: VANCOMYCIN HCL 1,000 MG, VIAL MATE ADAPTER 1 EACH in D5W 250 ML IV ×2 (00:01→09:00)
[2018-03-14] MEDS: PIPERACILLIN/TAZOBACTAM SOD 3.375 GM in D5W MINI-BAG PLUS 50 ML IV (00:01)
[2018-03-14] MEDS ORDERED: NOREPINEPHRINE 4 MG/4 ML AMP As Ordered (00:11)
[2018-03-14] MEDS ORDERED: LIDOCAINE 2% MDV 20 ML VIAL As Ordered (00:23)
[2018-03-14] MEDS: NOREPINEPHRINE BITARTRATE 8 MG in D5W 500 ML IV ×2 (00:30→12:29)
[2018-03-14 00:31] LABS: HEMATOCRIT 27.3 % (42.0-52.0); HEMOGLOBIN 8.7 g/dl (13.5-17.5)
[2018-03-14] MEDS ORDERED: SILVER SULFADIAZINE 1% CR 50 GM JAR EXT (00:45)
[2018-03-14] MEDS ORDERED: ONDANSETRON 4MG/2ML VIAL (J2405) IV (01:00)
[2018-03-14] MEDS: NS 1,000 ML IV ×3 (01:10→04:46)
[2018-03-14 01:28] LABS: APPEARANCE, URINE TURBID (CLEAR); BACTERIA, URINE AUTO 3+ (NEGATIVE); BILIRUBIN, URINE AUTO NEGATIVE (NEGATIVE); BLOOD, URINE BLOOD 2+ (NEGATIVE); CALCIUM OXALATE CRYSTALS SMALL; COLOR, URINE YELLOW (YELLOW); GLUCOSE, URINE (UA) AUTO 1+ mg/dL (NEGATIVE); KETONE, URINE AUTO NEGATIVE (NEGATIVE); LEUKOCYTE ESTERASE, URINE AUTO 2+ (NEGATIVE); NITRITE, URINE AUTO NEGATIVE (NEGATIVE); PROTEIN, URINE AUTO 2+ mg/dL (NEGATIVE); RBC, URINE AUTO 77 /HPF (0-3); SPECIFIC GRAVITY URINE AUTO 1.018 (1.002-1.035); SQUAMOUS EPITHELIAL CELL UR AU 0 /HPF (0-6); WBC, URINE AUTO TNTC /HPF (0-3)
[2018-03-14] MEDS ORDERED: DEXTROSE 50% 50 ML SYRINGE IV (01:30)
[2018-03-14] MEDS: LIDOCAINE 2% MDV 20 ML VIAL SC (01:30)
[2018-03-14] MEDS ORDERED: GLUCOSE 4 GM CHEW TABLET PO (01:30)
[2018-03-14] MEDS ORDERED: GLUCAGON FOR INJ 1 MG VIAL (J1610) SC (01:30)
[2018-03-14 01:33] LABS: INR 1.37; PROTHROMBIN TIME 17.2 SECONDS (12.4-14.5)
[2018-03-14 01:34] LABS: PARTIAL THROMBOPLASTIN TIME 46.7 SECONDS (26.8-37.9)
[2018-03-14 01:39] LABS: OSMOLALITY SERUM 295 MOSM/KG (280-301)
[2018-03-14 01:43] LABS: CPK CREATINE PHOSPHOKINASE 676 U/L (39-308); MB/CK RELATIVE INDEX 1.03 (< OR =4); TROPONIN I < 0.02 NG/ML (< 0.10)
[2018-03-14 01:44] LABS: FERRITIN 370 NG/ML (26-388); IRON (FE) 19 UG/DL (65-175); PERCENT SATURATION 14.2 % (19.7-50.0); TOTAL IRON BINDING CAPACITY 134 UG/DL (250-450)
[2018-03-14 01:45] LABS: OSMOLALITY URINE 306 MOSM/KG (500-800)
[2018-03-14 01:50] LABS: NT-PRO BNP 7632 PG/ML (<125)
[2018-03-14 01:50] LABS: MAGNESIUM LEVEL 1.1 MG/DL (1.8-2.4)
[2018-03-14 01:58] LABS: SODIUM,RANDOM URINE 47 MEQ/L
[2018-03-14] MEDS: IPRATROPIUM 0.5MG/ALBUTEROL 2.5MG INH SOL UD 3ML (DUONEB)(J7620) NEB ×2 (02:00→07:15)
[2018-03-14] MEDS ORDERED: VANCOMYCIN INTERMITTENT/PULSE DOSING BY CLINICAL PHARMACIST PER DOSING PROTOCOL XX (04:00)
[2018-03-14 05:23] LABS: HEMATOCRIT 27.3 % (42.0-52.0); HEMOGLOBIN 8.6 g/dl (13.5-17.5); MEAN CORPUSCULAR HEMOGLOBIN 27.9 pg (27.0-33.0); MEAN CORPUSCULAR HGB CONC 31.5 g/dl (32.0-36.5); MEAN CORPUSCULAR VOLUME 88.6 fl (80.0-96.0); PLATELET COUNT, AUTOMATED 221 10^3/uL (150-450); RED BLOOD COUNT 3.08 10^6/uL (4.30-6.10); RED CELL DISTRIBUTION WIDTH 15.9 % (11.5-14.5); WHITE BLOOD COUNT 22.3 10^3/uL (4.0-10.0)
[2018-03-14 05:57] LABS: ALBUMIN 1.7 GM/DL (3.2-5.2); ALBUMIN/GLOBULIN RATIO 0.43 (1.00-1.93); ALKALINE PHOSPHATASE 93 U/L (45-117); ALT/SGPT 31 U/L (12-78); ANION GAP 13 MEQ/L (8-16); AST/SGOT 100 U/L (7-37); BILIRUBIN,TOTAL 0.4 MG/DL (0.2-1.0); BLOOD UREA NITROGEN 82 MG/DL (7-18); CALCIUM LEVEL 5.8 MG/DL (8.8-10.2); CARBON DIOXIDE LEVEL 16 MEQ/L (21-32); CHLORIDE LEVEL 103 MEQ/L (98-107); CPK CREATINE PHOSPHOKINASE 666 U/L (39-308); CREATININE FOR GFR 4.12 MG/DL (0.70-1.30); GLOMERULAR FILTRATION RATE 15.8 (>49); GLUCOSE, FASTING 200 MG/DL (70-100); POTASSIUM SERUM 4.1 MEQ/L (3.5-5.1); SODIUM LEVEL 132 MEQ/L (136-145); TOTAL PROTEIN 5.7 GM/DL (6.4-8.2); TROPONIN I < 0.02 NG/ML (< 0.10)
[2018-03-14 05:58] LABS: CK-MB VALUE MASS 7.2 NG/ML (<3.6); MB/CK RELATIVE INDEX 1.08 (< OR =4)
[2018-03-14] MEDS: HumaLOG INSULIN (NovoLOG) PER UNIT SC ×3 (06:00→18:49)
[2018-03-14 06:04] LABS: ABG HCO3 14.5 MEQ/L (22.0-26.0); ABG O2 SATURATION 63.8 % (95.0-99.0); ABG PARTIAL PRESSURE CO2 39.8 mmHg (35.0-45.0); ABG STANDARD HCO3 13.7 MEQ/L (22.0-26.0); ABG TOTAL CO2 15.7 MEQ/L (23.0-31.0)
[2018-03-14 06:10] LABS: ABG PARTIAL PRESSURE O2 38.1 mmHg (75.0-100.0)
[2018-03-14] MEDS: HEPARIN SOD (PORCINE) 5000 UNITS/ML VIAL SQ ×3 (06:18→21:18)
[2018-03-14] MEDS: CALCIUM GLUCONATE 1,000 MG in D5W MINI-BAG PLUS 100 ML IV ×2 (06:20→20:21)
[2018-03-14] MEDS ORDERED: PIPERACILLIN/TAZOBACTAM SOD 2.25 GM in D5W MINI-BAG PLUS 50 ML IV (08:00)
[2018-03-14] MEDS: AMIODARONE HCL 150 MG in APPROPRIATE DILUENT 1 EA IV ×2 (08:21→21:56)
[2018-03-14] MEDS: PANTOPRAZOLE 40MG INJ (PROTONIX) (C9113) IV (08:40)
[2018-03-14] MEDS: FLUTICASONE PROP 0.05% NASAL SPRAY 16 GM (FLONASE) (08:41)
[2018-03-14] MEDS: MEROPENEM INJ 500 MG in APPROPRIATE DILUENT 1 EA IV ×2 (08:41→20:21)
[2018-03-14] MEDS: EUCERIN 120GM CREAM TOP ×2 (08:41→20:21)
[2018-03-14] MEDS: LEVEMIR (INSULIN DETEMIR) 1 UNITS/0.01ML SC ×2 (08:41→20:22)
[2018-03-14] MEDS ORDERED: MYCOLOG CREAM 15 GM (NYSTATIN/TRIAMCINOLONE) TOP (09:00)
[2018-03-14] MEDS ORDERED: ESCITALOPRAM OXALATE 10 MG TAB (LEXAPRO) PO (09:00)
[2018-03-14] MEDS ORDERED: ALPRAZolam 0.25 MG TAB PO (09:00)
[2018-03-14] MEDS: ADVAIR HFA 230/21MCG INHALER INH ×2 (09:00→20:32)
[2018-03-14] MEDS ORDERED: SENOKOT S TAB PO (09:00)
[2018-03-14] MEDS ORDERED: OMEPRAZOLE 20 MG CAP PO (09:00)
[2018-03-14] MEDS ORDERED: METOPROLOL TART 25 MG TABLET PO (09:00)
[2018-03-14 09:40] LABS: LACTIC ACID SEPSIS PROTOCOL 1.1 MMOL/L (0.4-2.0)
[2018-03-14 09:50] LABS: VITAMIN B12 LEVEL 799 PG/ML (247-911)
[2018-03-14] MEDS: SODIUM BICARBONATE 150 MEQ in D5W 1,000 ML IV ×2 (10:19→18:49)
[2018-03-14] MEDS ORDERED: VANCOMYCIN HCL 1,000 MG, VIAL MATE ADAPTER 1 EACH in D5W 250 ML IV (11:00)
[2018-03-14] MEDS: NYSTATIN 100,000 UNITS/GM TOPICAL PWD 15 GM TOP (11:07)
[2018-03-14 11:14] LABS: VANCOMYCIN RANDOM 19.2 UG/ML
[2018-03-14 12:20] LABS: BEDSIDE GLUCOSE 255 MG/DL (80-115)
[2018-03-14 14:12] LABS: ANION GAP 10 MEQ/L (8-16); BLOOD UREA NITROGEN 80 MG/DL (7-18); CALCIUM LEVEL 6.3 MG/DL (8.8-10.2); CARBON DIOXIDE LEVEL 18 MEQ/L (21-32); CHLORIDE LEVEL 101 MEQ/L (98-107); GLOMERULAR FILTRATION RATE 15.4 (>49); GLUCOSE, FASTING 249 MG/DL (70-100); POTASSIUM SERUM 4.1 MEQ/L (3.5-5.1); SODIUM LEVEL 129 MEQ/L (136-145)
[2018-03-14 14:18] LABS: CK-MB VALUE MASS 6.5 NG/ML (<3.6); CPK CREATINE PHOSPHOKINASE 517 U/L (39-308); MB/CK RELATIVE INDEX 1.25 (< OR =4); TROPONIN I < 0.02 NG/ML (< 0.10)
[2018-03-14 18:26] LABS: ABG HCO3 15.6 MEQ/L (22.0-26.0); ABG O2 SATURATION 94.4 % (95.0-99.0); ABG PARTIAL PRESSURE CO2 37.2 mmHg (35.0-45.0); ABG PARTIAL PRESSURE O2 77.4 mmHg (75.0-100.0); ABG STANDARD HCO3 15.7 MEQ/L (22.0-26.0); ABG TOTAL CO2 16.7 MEQ/L (23.0-31.0)
[2018-03-14 18:54] LABS: BEDSIDE GLUCOSE 250 MG/DL (80-115)
[2018-03-14 19:36] LABS: ANION GAP 13 MEQ/L (8-16); BLOOD UREA NITROGEN 79 MG/DL (7-18); CALCIUM LEVEL 5.9 MG/DL (8.8-10.2); CARBON DIOXIDE LEVEL 17 MEQ/L (21-32); CHLORIDE LEVEL 102 MEQ/L (98-107); CREATININE FOR GFR 4.16 MG/DL (0.70-1.30); GLOMERULAR FILTRATION RATE 15.6 (>49); GLUCOSE, FASTING 262 MG/DL (70-100); POTASSIUM SERUM 4.1 MEQ/L (3.5-5.1); SODIUM LEVEL 132 MEQ/L (136-145)
[2018-03-14] MEDS ORDERED: TAMSULOSIN 0.4 MG CAP PO (21:00)
[2018-03-15 00:08] LABS: ANION GAP 11 MEQ/L (8-16); BLOOD UREA NITROGEN 79 MG/DL (7-18); CALCIUM LEVEL 5.9 MG/DL (8.8-10.2); CARBON DIOXIDE LEVEL 20 MEQ/L (21-32); CHLORIDE LEVEL 100 MEQ/L (98-107); CREATININE FOR GFR 4.14 MG/DL (0.70-1.30); GLOMERULAR FILTRATION RATE 15.7 (>49); GLUCOSE, FASTING 245 MG/DL (70-100); SODIUM LEVEL 131 MEQ/L (136-145)
[2018-03-15] MEDS: CALCIUM GLUCONATE 1,000 MG in D5W MINI-BAG PLUS 100 ML IV (00:28)
[2018-03-15] MEDS: HumaLOG INSULIN (NovoLOG) PER UNIT SC ×4 (00:29→18:27)
[2018-03-15] MEDS: NOREPINEPHRINE BITARTRATE 8 MG in D5W 500 ML IV ×2 (02:27→15:30)
[2018-03-15] MEDS: SODIUM BICARBONATE 150 MEQ in D5W 1,000 ML IV ×2 (02:28→10:25)
[2018-03-15] MEDS: HEPARIN SOD (PORCINE) 5000 UNITS/ML VIAL SQ ×3 (05:13→22:22)
[2018-03-15 05:32] LABS: HEMATOCRIT 25.9 % (42.0-52.0); HEMOGLOBIN 8.4 g/dl (13.5-17.5); MEAN CORPUSCULAR HEMOGLOBIN 27.8 pg (27.0-33.0); MEAN CORPUSCULAR HGB CONC 32.4 g/dl (32.0-36.5); MEAN CORPUSCULAR VOLUME 85.8 fl (80.0-96.0); PLATELET COUNT, AUTOMATED 239 10^3/uL (150-450); RED BLOOD COUNT 3.02 10^6/uL (4.30-6.10); RED CELL DISTRIBUTION WIDTH 15.6 % (11.5-14.5); WHITE BLOOD COUNT 23.5 10^3/uL (4.0-10.0)
[2018-03-15 06:04] LABS: ALBUMIN 1.5 GM/DL (3.2-5.2); ALBUMIN/GLOBULIN RATIO 0.37 (1.00-1.93); ALKALINE PHOSPHATASE 89 U/L (45-117); ALT/SGPT 22 U/L (12-78); ANION GAP 12 MEQ/L (8-16); AST/SGOT 63 U/L (7-37); BILIRUBIN,TOTAL 0.3 MG/DL (0.2-1.0); BLOOD UREA NITROGEN 78 MG/DL (7-18); CALCIUM LEVEL 6.2 MG/DL (8.8-10.2); CARBON DIOXIDE LEVEL 21 MEQ/L (21-32); CHLORIDE LEVEL 100 MEQ/L (98-107); CREATININE FOR GFR 4.14 MG/DL (0.70-1.30); GLOMERULAR FILTRATION RATE 15.7 (>49); GLUCOSE, FASTING 182 MG/DL (70-100); POTASSIUM SERUM 3.9 MEQ/L (3.5-5.1); SODIUM LEVEL 133 MEQ/L (136-145); TOTAL PROTEIN 5.6 GM/DL (6.4-8.2)
[2018-03-15] MEDS: AMIODARONE HCL 150 MG in APPROPRIATE DILUENT 1 EA IV (06:29)
[2018-03-15] MEDS: AMIODARONE HCL 360 MG in APPROPRIATE DILUENT 1 EA IV ×2 (06:37→13:07)
[2018-03-15 06:53] LABS: LACTIC ACID SEPSIS PROTOCOL 1.3 MMOL/L (0.4-2.0)
[2018-03-15 07:06] LABS: IONIZED CALCIUM 3.5 MG/DL (4.5-5.3)
[2018-03-15 07:17] LABS: CK-MB VALUE MASS 4.7 NG/ML (<3.6); CPK CREATINE PHOSPHOKINASE 364 U/L (39-308); MB/CK RELATIVE INDEX 1.29 (< OR =4); NT-PRO BNP 8401 PG/ML (<125); TROPONIN I < 0.02 NG/ML (< 0.10)
[2018-03-15] MEDS: ADVAIR HFA 230/21MCG INHALER INH ×2 (07:59→20:55)
[2018-03-15] MEDS: LEVEMIR (INSULIN DETEMIR) 1 UNITS/0.01ML SC ×2 (08:54→22:23)
[2018-03-15] MEDS: PANTOPRAZOLE 40MG INJ (PROTONIX) (C9113) IV (08:54)
[2018-03-15] MEDS: EUCERIN 120GM CREAM TOP ×2 (08:54→22:23)
[2018-03-15] MEDS: MEROPENEM INJ 500 MG in APPROPRIATE DILUENT 1 EA IV ×2 (08:55→21:28)
[2018-03-15] MEDS: FLUTICASONE PROP 0.05% NASAL SPRAY 16 GM (FLONASE) (08:57)
[2018-03-15] MEDS: FLUCONAZOLE 100 MG in APPROPRIATE DILUENT 1 EA IV (10:25)
[2018-03-15 10:56] LABS: VENOUS BASE EXCESS -5.8 (-2.0-2.0); VENOUS HCO3 20.4 MEQ/L (23.0-27.0); VENOUS PARTIAL PRESSURE CO2 43.5 mmHg (38.0-50.0); VENOUS STANDARD HCO3 19.7 MEQ/L; VENOUS TOTAL CO2 21.8 MEQ/L (24.0-28.0)
[2018-03-15 12:15] LABS: HEPATITIS B SURFACE ANTIBODY NEGATIVE (POSITIVE)
[2018-03-15 12:25] LABS: HEPATITIS B SURFACE ANTIGEN NEGATIVE (NEGATIVE)
[2018-03-15 12:55] LABS: HEPATITIS A ANTIBODY IGM NEGATIVE (NEGATIVE)
[2018-03-15 13:04] LABS: BEDSIDE GLUCOSE 196 MG/DL (80-115)
[2018-03-15 13:25] LABS: ANION GAP 8 MEQ/L (8-16); BLOOD UREA NITROGEN 82 MG/DL (7-18); CALCIUM LEVEL 6.1 MG/DL (8.8-10.2); CARBON DIOXIDE LEVEL 24 MEQ/L (21-32); CHLORIDE LEVEL 97 MEQ/L (98-107); CREATININE FOR GFR 4.01 MG/DL (0.70-1.30); GLOMERULAR FILTRATION RATE 16.3 (>49); GLUCOSE, FASTING 188 MG/DL (70-100); POTASSIUM SERUM 3.6 MEQ/L (3.5-5.1); SODIUM LEVEL 129 MEQ/L (136-145)
[2018-03-15] MEDS: NS 1,000 ML IV (16:56)
[2018-03-15 18:56] LABS: ANION GAP 10 MEQ/L (8-16); BLOOD UREA NITROGEN 77 MG/DL (7-18); CALCIUM LEVEL 6.2 MG/DL (8.8-10.2); CARBON DIOXIDE LEVEL 25 MEQ/L (21-32); CHLORIDE LEVEL 96 MEQ/L (98-107); GLOMERULAR FILTRATION RATE 16.3 (>49); GLUCOSE, FASTING 176 MG/DL (70-100); POTASSIUM SERUM 3.7 MEQ/L (3.5-5.1); SODIUM LEVEL 131 MEQ/L (136-145)
[2018-03-15 20:47] LABS: BEDSIDE GLUCOSE 242 MG/DL (80-115)
[2018-03-16 00:31] LABS: BEDSIDE GLUCOSE 116 MG/DL (80-115)
[2018-03-16 00:41] LABS: ANION GAP 9 MEQ/L (8-16); BLOOD UREA NITROGEN 77 MG/DL (7-18); CALCIUM LEVEL 5.9 MG/DL (8.8-10.2); CARBON DIOXIDE LEVEL 25 MEQ/L (21-32); CHLORIDE LEVEL 98 MEQ/L (98-107); CREATININE FOR GFR 3.91 MG/DL (0.70-1.30); GLOMERULAR FILTRATION RATE 16.8 (>49); GLUCOSE, FASTING 112 MG/DL (70-100); POTASSIUM SERUM 3.7 MEQ/L (3.5-5.1); SODIUM LEVEL 132 MEQ/L (136-145)
[2018-03-16] MEDS: AMIODARONE HCL 360 MG in APPROPRIATE DILUENT 1 EA IV (01:25)
[2018-03-16] MEDS: ACETAMINOPHEN TAB 650MG DOSE (2X325MG) PO ×2 (01:32→11:53)
[2018-03-16] MEDS: CALCIUM GLUCONATE 1,000 MG in D5W MINI-BAG PLUS 100 ML IV ×3 (01:45→14:28)
[2018-03-16] MEDS: NS 1,000 ML IV ×3 (03:00→17:47)
[2018-03-16] MEDS: HEPARIN SOD (PORCINE) 5000 UNITS/ML VIAL SQ ×3 (05:59→21:57)
[2018-03-16] MEDS: HumaLOG INSULIN (NovoLOG) PER UNIT SC ×5 (06:00→21:00)
[2018-03-16 06:16] LABS: BEDSIDE GLUCOSE 102 MG/DL (80-115)
[2018-03-16 06:19] LABS: HEMOGLOBIN 7.5 g/dl (13.5-17.5); MEAN CORPUSCULAR HEMOGLOBIN 27.9 pg (27.0-33.0); MEAN CORPUSCULAR HGB CONC 32.6 g/dl (32.0-36.5); MEAN CORPUSCULAR VOLUME 85.5 fl (80.0-96.0); PLATELET COUNT, AUTOMATED 206 10^3/uL (150-450); RED BLOOD COUNT 2.69 10^6/uL (4.30-6.10); WHITE BLOOD COUNT 15.5 10^3/uL (4.0-10.0)
[2018-03-16] MEDS: NOREPINEPHRINE BITARTRATE 8 MG in D5W 500 ML IV (06:27)
[2018-03-16 06:46] LABS: ALBUMIN 1.3 GM/DL (3.2-5.2); ALKALINE PHOSPHATASE 70 U/L (45-117); ALT/SGPT 17 U/L (12-78); AST/SGOT 45 U/L (7-37); BILIRUBIN,TOTAL 0.3 MG/DL (0.2-1.0); BLOOD UREA NITROGEN 79 MG/DL (7-18); CARBON DIOXIDE LEVEL 23 MEQ/L (21-32); CHLORIDE LEVEL 99 MEQ/L (98-107); CREATININE FOR GFR 3.85 MG/DL (0.70-1.30); GLUCOSE, FASTING 91 MG/DL (70-100); POTASSIUM SERUM 3.8 MEQ/L (3.5-5.1); SODIUM LEVEL 133 MEQ/L (136-145); TOTAL PROTEIN 4.9 GM/DL (6.4-8.2)
[2018-03-16 06:56] LABS: CALCIUM LEVEL 6.1 MG/DL (8.8-10.2)
[2018-03-16] MEDS: ADVAIR HFA 230/21MCG INHALER INH ×2 (08:00→20:45)
[2018-03-16 09:04] LABS: ALBUMIN/GLOBULIN RATIO 0.36 (1.00-1.93)
[2018-03-16 09:05] LABS: ANION GAP 11 MEQ/L (8-16)
[2018-03-16 09:43] LABS: VANCOMYCIN LEVEL TROUGH 9.4 UG/ML (10.0-20.0)
[2018-03-16] MEDS: EUCERIN 120GM CREAM TOP ×2 (10:12→21:56)
[2018-03-16] MEDS: PANTOPRAZOLE 40MG INJ (PROTONIX) (C9113) IV (10:12)
[2018-03-16] MEDS: FLUTICASONE PROP 0.05% NASAL SPRAY 16 GM (FLONASE) (10:12)
[2018-03-16] MEDS: MEROPENEM INJ 500 MG in APPROPRIATE DILUENT 1 EA IV ×2 (10:13→21:56)
[2018-03-16] MEDS: FLUCONAZOLE 100 MG in APPROPRIATE DILUENT 1 EA IV (11:12)
[2018-03-16] MEDS: VANCOMYCIN HCL 1,000 MG, VIAL MATE ADAPTER 1 EACH in D5W 250 ML IV (11:54)
[2018-03-16] MEDS: NYSTATIN 100,000 UNITS/GM TOPICAL PWD 15 GM TOP (12:30)
[2018-03-16 12:37] LABS: ANION GAP 10 MEQ/L (8-16); BLOOD UREA NITROGEN 78 MG/DL (7-18); CARBON DIOXIDE LEVEL 24 MEQ/L (21-32); CHLORIDE LEVEL 99 MEQ/L (98-107); CREATININE FOR GFR 3.78 MG/DL (0.70-1.30); GLOMERULAR FILTRATION RATE 17.4 (>49); GLUCOSE, FASTING 102 MG/DL (70-100); SODIUM LEVEL 133 MEQ/L (136-145)
[2018-03-16 12:59] LABS: CALCIUM LEVEL 5.9 MG/DL (8.8-10.2)
[2018-03-16] MEDS: ACETAMINOPHEN 500 MG TAB PO (17:40)
[2018-03-16 17:55] LABS: BEDSIDE GLUCOSE 138 MG/DL (80-115)
[2018-03-16 21:45] LABS: BEDSIDE GLUCOSE 169 MG/DL (80-115)
[2018-03-16] MEDS: NS 500 ML IV (22:15)
[2018-03-17] MEDS: ACETAMINOPHEN 500 MG TAB PO ×3 (00:15→19:28)
[2018-03-17] MEDS: MORPHINE 4 MG/ML 1ML VIAL/SYRINGE (J2270) IV (04:22)
[2018-03-17] MEDS: HEPARIN SOD (PORCINE) 5000 UNITS/ML VIAL SQ ×3 (05:48→21:34)
[2018-03-17 06:06] LABS: IONIZED CALCIUM 3.5 MG/DL (4.5-5.3)
[2018-03-17 06:09] LABS: HEMATOCRIT 23.5 % (42.0-52.0); HEMOGLOBIN 7.7 g/dl (13.5-17.5); MEAN CORPUSCULAR HEMOGLOBIN 28.4 pg (27.0-33.0); MEAN CORPUSCULAR HGB CONC 32.8 g/dl (32.0-36.5); MEAN CORPUSCULAR VOLUME 86.7 fl (80.0-96.0); PLATELET COUNT, AUTOMATED 208 10^3/uL (150-450); RED BLOOD COUNT 2.71 10^6/uL (4.30-6.10); RED CELL DISTRIBUTION WIDTH 16.5 % (11.5-14.5); WHITE BLOOD COUNT 12.4 10^3/uL (4.0-10.0)
[2018-03-17 06:40] LABS: ALBUMIN 1.4 GM/DL (3.2-5.2); ALBUMIN/GLOBULIN RATIO 0.37 (1.00-1.93); ALKALINE PHOSPHATASE 73 U/L (45-117); ALT/SGPT 11 U/L (12-78); ANION GAP 10 MEQ/L (8-16); AST/SGOT 31 U/L (7-37); BILIRUBIN,TOTAL 0.3 MG/DL (0.2-1.0); BLOOD UREA NITROGEN 78 MG/DL (7-18); CALCIUM LEVEL 5.9 MG/DL (8.8-10.2); CARBON DIOXIDE LEVEL 23 MEQ/L (21-32); CHLORIDE LEVEL 98 MEQ/L (98-107); CREATININE FOR GFR 3.52 MG/DL (0.70-1.30); GLOMERULAR FILTRATION RATE 18.9 (>49); GLUCOSE, FASTING 156 MG/DL (70-100); POTASSIUM SERUM 4.1 MEQ/L (3.5-5.1); SODIUM LEVEL 131 MEQ/L (136-145); TOTAL PROTEIN 5.2 GM/DL (6.4-8.2)
[2018-03-17 07:26] LABS: FERRITIN 281 NG/ML (26-388); IRON (FE) 34 UG/DL (65-175); PERCENT SATURATION 27.2 % (19.7-50.0); TOTAL IRON BINDING CAPACITY 125 UG/DL (250-450)
[2018-03-17] MEDS: CALCIUM GLUCONATE 1,000 MG in D5W MINI-BAG PLUS 100 ML IV ×2 (07:31→15:36)
[2018-03-17] MEDS: AMIODARONE 200 MG TAB (PACERONE) PO ×4 (07:31→23:48)
[2018-03-17] MEDS: HumaLOG INSULIN (NovoLOG) PER UNIT SC ×4 (07:31→21:00)
[2018-03-17 07:35] LABS: REASON FOR REVIEW ANEMIA / RBC MORPH; SLIDE REVIEW Report; SOURCE PERIPHERAL SMEAR
[2018-03-17] MEDS: NS 1,000 ML IV (09:00)
[2018-03-17] MEDS ORDERED: VITAMIN D 50,000 UNITS CAPSULE (ERGOCALCIFEROL 1.25MG) PO (09:00)
[2018-03-17] MEDS: ADVAIR HFA 230/21MCG INHALER INH ×2 (09:14→21:15)
[2018-03-17] MEDS: MEROPENEM INJ 500 MG in APPROPRIATE DILUENT 1 EA IV ×2 (09:37→20:13)
[2018-03-17] MEDS: NYSTATIN 100,000 UNITS/GM TOPICAL PWD 15 GM TOP (09:38)
[2018-03-17] MEDS: FLUTICASONE PROP 0.05% NASAL SPRAY 16 GM (FLONASE) (09:38)
[2018-03-17] MEDS: EUCERIN 120GM CREAM TOP ×2 (09:38→20:13)
[2018-03-17] MEDS: FLUCONAZOLE 100 MG in APPROPRIATE DILUENT 1 EA IV (10:13)
[2018-03-17 10:27] LABS: VANCOMYCIN LEVEL TROUGH 12.6 UG/ML (10.0-20.0)
[2018-03-17] MEDS: VANCOMYCIN HCL 1,000 MG, VIAL MATE ADAPTER 1 EACH in D5W 250 ML IV (10:58)
[2018-03-17 11:30] LABS: MAGNESIUM LEVEL 1.2 MG/DL (1.8-2.4)
[2018-03-17 12:21] LABS: BEDSIDE GLUCOSE 171 MG/DL (80-115)
[2018-03-17 12:51] LABS: IMMEDIATE SPIN CROSSMATCH 1 2
[2018-03-17] MEDS: MAGNESIUM OXIDE 400 MG TAB (MAG-OX) PO ×2 (14:29→20:12)
[2018-03-17] MEDS: MAG SULF 1GM/100ML (MAG RUN) 1 GM in APPROPRIATE DILUENT 1 EA IV (14:29)
[2018-03-17] MEDS: FUROSEMIDE 40 MG/4 ML VIAL (J1940) IV (14:29)
[2018-03-17] MEDS: FUROSEMIDE 20 MG/2 ML VIAL (J1940) IV (19:28)
[2018-03-17 21:18] LABS: BEDSIDE GLUCOSE 202 MG/DL (80-115)
[2018-03-18] MEDS: HEPARIN SOD (PORCINE) 5000 UNITS/ML VIAL SQ ×3 (05:59→21:05)
[2018-03-18] MEDS: SODIUM CHLORIDE 0.9% INJ 10 ML SYR IV ×3 (05:59→21:05)
[2018-03-18] MEDS: AMIODARONE 200 MG TAB (PACERONE) PO ×3 (05:59→17:51)
[2018-03-18 06:13] LABS: HEMATOCRIT 23.9 % (42.0-52.0); HEMOGLOBIN 7.7 g/dl (13.5-17.5); MEAN CORPUSCULAR HEMOGLOBIN 27.4 pg (27.0-33.0); MEAN CORPUSCULAR HGB CONC 32.2 g/dl (32.0-36.5); MEAN CORPUSCULAR VOLUME 85.1 fl (80.0-96.0); PLATELET COUNT, AUTOMATED 188 10^3/uL (150-450); RED BLOOD COUNT 2.81 10^6/uL (4.30-6.10); RED CELL DISTRIBUTION WIDTH 16.8 % (11.5-14.5); WHITE BLOOD COUNT 8.4 10^3/uL (4.0-10.0)
[2018-03-18 06:45] LABS: ALBUMIN 1.4 GM/DL (3.2-5.2); ALBUMIN/GLOBULIN RATIO 0.35 (1.00-1.93); ALKALINE PHOSPHATASE 81 U/L (45-117); ALT/SGPT 11 U/L (12-78); ANION GAP 9 MEQ/L (8-16); AST/SGOT 20 U/L (7-37); BILIRUBIN,TOTAL 0.3 MG/DL (0.2-1.0); BLOOD UREA NITROGEN 79 MG/DL (7-18); CALCIUM LEVEL 6.1 MG/DL (8.8-10.2); CARBON DIOXIDE LEVEL 24 MEQ/L (21-32); CHLORIDE LEVEL 98 MEQ/L (98-107); CREATININE FOR GFR 3.33 MG/DL (0.70-1.30); GLOMERULAR FILTRATION RATE 20.2 (>49); GLUCOSE, FASTING 184 MG/DL (70-100); MAGNESIUM LEVEL 1.3 MG/DL (1.8-2.4); POTASSIUM SERUM 4.3 MEQ/L (3.5-5.1); SODIUM LEVEL 131 MEQ/L (136-145); TOTAL PROTEIN 5.4 GM/DL (6.4-8.2)
[2018-03-18] MEDS: NYSTATIN 100,000 UNITS/GM TOPICAL PWD 15 GM TOP ×2 (06:45→08:53)
[2018-03-18 07:05] LABS: BEDSIDE GLUCOSE 204 MG/DL (80-115)
[2018-03-18] MEDS: HumaLOG INSULIN (NovoLOG) PER UNIT SC ×4 (07:30→21:00)
[2018-03-18] MEDS: ADVAIR HFA 230/21MCG INHALER INH ×2 (07:36→20:36)
[2018-03-18 08:22] LABS: PTH INTACT 143.8 PG/ML (18.5-88.0)
[2018-03-18] MEDS: MAGNESIUM OXIDE 400 MG TAB (MAG-OX) PO ×2 (08:53→21:05)
[2018-03-18] MEDS: FLUCONAZOLE 100 MG in APPROPRIATE DILUENT 1 EA IV (08:54)
[2018-03-18] MEDS: EUCERIN 120GM CREAM TOP ×2 (08:54→21:06)
[2018-03-18] MEDS: FLUTICASONE PROP 0.05% NASAL SPRAY 16 GM (FLONASE) (08:55)
[2018-03-18] MEDS: FUROSEMIDE 40 MG/4 ML VIAL (J1940) IV ×2 (10:19→17:51)
[2018-03-18] MEDS: MEROPENEM INJ 500 MG in APPROPRIATE DILUENT 1 EA IV ×2 (10:19→21:06)
[2018-03-18] MEDS: VANCOMYCIN HCL 1,000 MG, VIAL MATE ADAPTER 1 EACH in D5W 250 ML IV (11:29)
[2018-03-18] MEDS: ACETAMINOPHEN 500 MG TAB PO (11:37)
[2018-03-18 12:07] LABS: BEDSIDE GLUCOSE 221 MG/DL (80-115)
[2018-03-18] MEDS: MAGNESIUM CHLORIDE 64 MG TABCR (SLO MAG) PO (12:44)
[2018-03-18] MEDS: MAG SULF 1GM/100ML (MAG RUN) 1 GM in APPROPRIATE DILUENT 1 EA IV ×3 (12:45→17:51)
[2018-03-18] MEDS: CALCIUM GLUCONATE 1,000 MG in D5W MINI-BAG PLUS 100 ML IV (13:33)
[2018-03-18 17:31] LABS: BEDSIDE GLUCOSE 230 MG/DL (80-115)
[2018-03-18] MEDS ORDERED: MAGNESIUM SULFATE 1 GM/100 ML D5W BAG (10MG/ML) (J3475) As Ordered (17:40)
[2018-03-18 23:14] LABS: MAGNESIUM LEVEL 1.8 MG/DL (1.8-2.4)
[2018-03-18 23:25] LABS: BEDSIDE GLUCOSE 192 MG/DL (80-115)
[2018-03-19] MEDS: SODIUM CHLORIDE 0.9% INJ 10 ML SYR IV ×5 (00:06→21:35)
[2018-03-19] MEDS: FUROSEMIDE 40 MG/4 ML VIAL (J1940) IV ×4 (00:06→21:34)
[2018-03-19] MEDS: AMIODARONE 200 MG TAB (PACERONE) PO ×4 (00:06→17:22)
[2018-03-19] MEDS: ACETAMINOPHEN 500 MG TAB PO (02:50)
[2018-03-19] MEDS: HEPARIN SOD (PORCINE) 5000 UNITS/ML VIAL SQ ×3 (05:39→21:34)
[2018-03-19 05:53] LABS: HEMOGLOBIN 8.2 g/dl (13.5-17.5); MEAN CORPUSCULAR HGB CONC 32.8 g/dl (32.0-36.5); MEAN CORPUSCULAR VOLUME 85.3 fl (80.0-96.0); PLATELET COUNT, AUTOMATED 191 10^3/uL (150-450); RED BLOOD COUNT 2.93 10^6/uL (4.30-6.10); RED CELL DISTRIBUTION WIDTH 16.3 % (11.5-14.5); WHITE BLOOD COUNT 8.6 10^3/uL (4.0-10.0)
[2018-03-19 06:37] LABS: ALBUMIN 1.5 GM/DL (3.2-5.2); ALBUMIN/GLOBULIN RATIO 0.36 (1.00-1.93); ALKALINE PHOSPHATASE 93 U/L (45-117); ALT/SGPT 9 U/L (12-78); ANION GAP 12 MEQ/L (8-16); AST/SGOT 18 U/L (7-37); BILIRUBIN,TOTAL 0.3 MG/DL (0.2-1.0); BLOOD UREA NITROGEN 79 MG/DL (7-18); CALCIUM LEVEL 6.5 MG/DL (8.8-10.2); CARBON DIOXIDE LEVEL 22 MEQ/L (21-32); CHLORIDE LEVEL 97 MEQ/L (98-107); CREATININE FOR GFR 2.57 MG/DL (0.70-1.30); GLOMERULAR FILTRATION RATE 27.2 (>49); GLUCOSE, FASTING 190 MG/DL (70-100); MAGNESIUM LEVEL 1.9 MG/DL (1.8-2.4); POTASSIUM SERUM 4.4 MEQ/L (3.5-5.1); SODIUM LEVEL 131 MEQ/L (136-145); TOTAL PROTEIN 5.7 GM/DL (6.4-8.2)
[2018-03-19] MEDS: HumaLOG INSULIN (NovoLOG) PER UNIT SC ×4 (08:38→21:34)
[2018-03-19] MEDS: MEROPENEM INJ 500 MG in APPROPRIATE DILUENT 1 EA IV (08:39)
[2018-03-19] MEDS: FLUCONAZOLE 100 MG TAB PO (08:39)
[2018-03-19] MEDS: MAGNESIUM OXIDE 400 MG TAB (MAG-OX) PO (08:39)
[2018-03-19] MEDS: FLUTICASONE PROP 0.05% NASAL SPRAY 16 GM (FLONASE) (08:39)
[2018-03-19] MEDS: MAGNESIUM CHLORIDE 64 MG TABCR (SLO MAG) PO (08:39)
[2018-03-19] MEDS: NYSTATIN 100,000 UNITS/GM TOPICAL PWD 15 GM TOP ×2 (08:40→21:33)
[2018-03-19] MEDS: EUCERIN 120GM CREAM TOP (08:40)
[2018-03-19] MEDS: ADVAIR HFA 230/21MCG INHALER INH ×2 (08:53→21:00)
[2018-03-19] MEDS: VANCOMYCIN HCL 1,000 MG, VIAL MATE ADAPTER 1 EACH in D5W 250 ML IV (09:48)
[2018-03-19 12:17] LABS: BEDSIDE GLUCOSE 233 MG/DL (80-115)
[2018-03-19 17:08] LABS: BEDSIDE GLUCOSE 271 MG/DL (80-115)
[2018-03-19 19:50] LABS: BEDSIDE GLUCOSE 255 MG/DL (80-115)
[2018-03-20] MEDS: AMIODARONE 200 MG TAB (PACERONE) PO ×2 (00:34→05:07)
[2018-03-20] MEDS: FUROSEMIDE 40 MG/4 ML VIAL (J1940) IV ×3 (02:11→17:05)
[2018-03-20] MEDS: SODIUM CHLORIDE 0.9% INJ 10 ML SYR IV ×3 (05:07→21:04)
[2018-03-20] MEDS: HEPARIN SOD (PORCINE) 5000 UNITS/ML VIAL SQ ×3 (05:07→21:03)
[2018-03-20] MEDS: LevoFLOXacin 500 MG TABLET PO (05:07)
[2018-03-20 05:50] LABS: ALBUMIN 1.6 GM/DL (3.2-5.2); ALBUMIN/GLOBULIN RATIO 0.36 (1.00-1.93); ALKALINE PHOSPHATASE 79 U/L (45-117); ALT/SGPT < 6 U/L (12-78); ANION GAP 8 MEQ/L (8-16); AST/SGOT 12 U/L (7-37); BILIRUBIN,TOTAL 0.4 MG/DL (0.2-1.0); BLOOD UREA NITROGEN 77 MG/DL (7-18); CALCIUM LEVEL 7.1 MG/DL (8.8-10.2); CARBON DIOXIDE LEVEL 27 MEQ/L (21-32); CHLORIDE LEVEL 98 MEQ/L (98-107); CREATININE FOR GFR 1.94 MG/DL (0.70-1.30); GLOMERULAR FILTRATION RATE 37.6 (>49); GLUCOSE, FASTING 189 MG/DL (70-100); SODIUM LEVEL 133 MEQ/L (136-145)
[2018-03-20 05:51] LABS: MAGNESIUM LEVEL 1.7 MG/DL (1.8-2.4)
[2018-03-20 05:54] LABS: HEMOGLOBIN 8.2 g/dl (13.5-17.5); MEAN CORPUSCULAR HEMOGLOBIN 28.2 pg (27.0-33.0); MEAN CORPUSCULAR HGB CONC 32.8 g/dl (32.0-36.5); MEAN CORPUSCULAR VOLUME 85.9 fl (80.0-96.0); PLATELET COUNT, AUTOMATED 188 10^3/uL (150-450); POS COUNT POS FLAG; POSITIVE MORPH POS FLAG; RED BLOOD COUNT 2.91 10^6/uL (4.30-6.10); RED CELL DISTRIBUTION WIDTH 16.2 % (11.5-14.5); WHITE BLOOD COUNT 7.8 10^3/uL (4.0-10.0)
[2018-03-20] MEDS: MAG SULF 1GM/100ML (MAG RUN) 1 GM in APPROPRIATE DILUENT 1 EA IV ×2 (07:39→09:05)
[2018-03-20 08:28] LABS: PHOSPHORUS LEVEL 4.5 MG/DL (2.5-4.9)
[2018-03-20] MEDS: EUCERIN 120GM CREAM TOP ×2 (09:00→21:05)
[2018-03-20] MEDS: METOPROLOL TART 25 MG TABLET PO ×2 (09:05→21:04)
[2018-03-20] MEDS: HumaLOG INSULIN (NovoLOG) PER UNIT SC ×4 (09:06→20:26)
[2018-03-20] MEDS: MAGNESIUM CHLORIDE 64 MG TABCR (SLO MAG) PO (09:07)
[2018-03-20] MEDS: MAGNESIUM OXIDE 400 MG TAB (MAG-OX) PO (09:07)
[2018-03-20] MEDS: FLUTICASONE PROP 0.05% NASAL SPRAY 16 GM (FLONASE) (09:08)
[2018-03-20] MEDS: NYSTATIN 100,000 UNITS/GM TOPICAL PWD 15 GM TOP ×2 (09:08→21:05)
[2018-03-20] MEDS: ADVAIR HFA 230/21MCG INHALER INH ×2 (09:15→23:18)
[2018-03-20] MEDS: VANCOMYCIN HCL 1,000 MG, VIAL MATE ADAPTER 1 EACH in D5W 250 ML IV (10:51)
[2018-03-20 12:10] LABS: BEDSIDE GLUCOSE 249 MG/DL (80-115)
[2018-03-20 16:56] LABS: BEDSIDE GLUCOSE 298 MG/DL (80-115)
[2018-03-20 20:59] LABS: BEDSIDE GLUCOSE 172 MG/DL (80-115)
[2018-03-20] MEDS: FAMOTIDINE 20 MG TAB PO (21:03)
[2018-03-20] MEDS: METOCLOPRAMIDE INJ 10MG/2ML VIAL (J2765) IV (21:03)
[2018-03-21] MEDS: LevoFLOXacin 500 MG TABLET PO (05:30)
[2018-03-21] MEDS: SODIUM CHLORIDE 0.9% INJ 10 ML SYR IV ×3 (05:30→21:22)
[2018-03-21] MEDS: HEPARIN SOD (PORCINE) 5000 UNITS/ML VIAL SQ ×3 (05:30→21:21)
[2018-03-21 07:36] LABS: BEDSIDE GLUCOSE 271 MG/DL (80-115)
[2018-03-21] MEDS: ADVAIR HFA 230/21MCG INHALER INH ×2 (07:51→23:12)
[2018-03-21] MEDS: METOPROLOL TART 25 MG TABLET PO ×2 (08:19→21:21)
[2018-03-21] MEDS: FAMOTIDINE 20 MG TAB PO (08:19)
[2018-03-21] MEDS: MAGNESIUM OXIDE 400 MG TAB (MAG-OX) PO (08:19)
[2018-03-21] MEDS: MAGNESIUM CHLORIDE 64 MG TABCR (SLO MAG) PO (08:19)
[2018-03-21] MEDS: VANCOMYCIN HCL 1,000 MG, VIAL MATE ADAPTER 1 EACH in D5W 250 ML IV (08:20)
[2018-03-21] MEDS: FUROSEMIDE 40 MG/4 ML VIAL (J1940) IV ×2 (08:20→17:23)
[2018-03-21] MEDS: FLUTICASONE PROP 0.05% NASAL SPRAY 16 GM (FLONASE) (08:20)
[2018-03-21] MEDS: EUCERIN 120GM CREAM TOP ×2 (08:20→21:21)
[2018-03-21] MEDS: NYSTATIN 100,000 UNITS/GM TOPICAL PWD 15 GM TOP ×2 (08:21→21:23)
[2018-03-21] MEDS: HumaLOG INSULIN (NovoLOG) PER UNIT SC ×4 (08:22→21:22)
[2018-03-21 08:42] LABS: CARBON DIOXIDE LEVEL 28 MEQ/L (21-32)
[2018-03-21 10:06] LABS: ANION GAP 7 MEQ/L (8-16); BLOOD UREA NITROGEN 65 MG/DL (7-18); CALCIUM LEVEL 7.5 MG/DL (8.8-10.2); CHLORIDE LEVEL 99 MEQ/L (98-107); CREATININE FOR GFR 1.53 MG/DL (0.70-1.30); GLOMERULAR FILTRATION RATE 49.5 (>49); GLUCOSE, FASTING 254 MG/DL (70-100); SODIUM LEVEL 134 MEQ/L (136-145)
[2018-03-21 11:37] LABS: BEDSIDE GLUCOSE 242 MG/DL (80-115)
[2018-03-21 13:23] LABS: C REACTIVE PROTEIN QUANTITATIV 4.07 MG/DL (0.00-0.30)
[2018-03-21 16:58] LABS: BEDSIDE GLUCOSE 281 MG/DL (80-115)
[2018-03-21 21:02] LABS: BEDSIDE GLUCOSE 280 MG/DL (80-115)
[2018-03-21] MEDS: LEVEMIR (INSULIN DETEMIR) 1 UNITS/0.01ML SC (21:22)
[2018-03-21] MEDS: LINEZOLID 600MG TABLET (ZYVOX) PO (23:57)
[2018-03-22] MEDS: LevoFLOXacin 500 MG TABLET PO (05:25)
[2018-03-22] MEDS: HEPARIN SOD (PORCINE) 5000 UNITS/ML VIAL SQ ×3 (05:25→21:46)
[2018-03-22] MEDS: SODIUM CHLORIDE 0.9% INJ 10 ML SYR IV ×3 (05:25→21:47)
[2018-03-22 05:36] LABS: HEMATOCRIT 25.3 % (42.0-52.0); HEMOGLOBIN 7.9 g/dl (13.5-17.5); MEAN CORPUSCULAR HGB CONC 31.2 g/dl (32.0-36.5); MEAN CORPUSCULAR VOLUME 89.7 fl (80.0-96.0); PLATELET COUNT, AUTOMATED 192 10^3/uL (150-450); RED BLOOD COUNT 2.82 10^6/uL (4.30-6.10); RED CELL DISTRIBUTION WIDTH 16.3 % (11.5-14.5); WHITE BLOOD COUNT 7.6 10^3/uL (4.0-10.0)
[2018-03-22 05:47] LABS: ADD MANUAL DIFFER YES; DIFF SLIDE NUMBER 68; POS COUNT POS FLAG; POSITIVE MORPH POS FLAG
[2018-03-22 05:56] LABS: MAGNESIUM LEVEL 1.9 MG/DL (1.8-2.4)
[2018-03-22 06:00] LABS: ANION GAP 5 MEQ/L (8-16); BLOOD UREA NITROGEN 58 MG/DL (7-18); CALCIUM LEVEL 7.8 MG/DL (8.8-10.2); CARBON DIOXIDE LEVEL 31 MEQ/L (21-32); CHLORIDE LEVEL 102 MEQ/L (98-107); CREATININE FOR GFR 1.34 MG/DL (0.70-1.30); GLOMERULAR FILTRATION RATE 57.7 (>49); GLUCOSE, FASTING 220 MG/DL (70-100); SODIUM LEVEL 138 MEQ/L (136-145)
[2018-03-22 06:14] LABS: BANDS 2 % (< 11); BASOPHILS 1 % (0-4); EOSINOPHILS 3 % (0-5); LYMPHOCYTES 10 % (16-52); METAMYELOCYTES 1 % (0-0); MONOCYTES 3 % (0-8); MYELOCYTES 1 % (0-0); NEUTROPHILS 79 % (35-75)
[2018-03-22 06:15] LABS: PLATELET ESTIMATE NORMAL (NORMAL)
[2018-03-22 06:16] LABS: ROULEAUX 1+
[2018-03-22] MEDS: ADVAIR HFA 230/21MCG INHALER INH ×2 (07:48→19:29)
[2018-03-22] MEDS: LINEZOLID 600MG TABLET (ZYVOX) PO ×2 (09:02→21:46)
[2018-03-22] MEDS: FUROSEMIDE 40 MG/4 ML VIAL (J1940) IV ×2 (09:02→17:23)
[2018-03-22] MEDS: HumaLOG INSULIN (NovoLOG) PER UNIT SC ×4 (09:02→21:47)
[2018-03-22] MEDS: METOPROLOL TART 25 MG TABLET PO ×2 (09:02→21:46)
[2018-03-22] MEDS: FLUTICASONE PROP 0.05% NASAL SPRAY 16 GM (FLONASE) (09:03)
[2018-03-22] MEDS: EUCERIN 120GM CREAM TOP ×2 (09:03→21:48)
[2018-03-22] MEDS: FAMOTIDINE 20 MG TAB PO (09:03)
[2018-03-22] MEDS: NYSTATIN 100,000 UNITS/GM TOPICAL PWD 15 GM TOP ×2 (09:03→21:48)
[2018-03-22] MEDS: MAGNESIUM CHLORIDE 64 MG TABCR (SLO MAG) PO (09:03)
[2018-03-22 10:00] LABS: VANCOMYCIN LEVEL TROUGH 16.4 UG/ML (10.0-20.0)
[2018-03-22 11:35] LABS: BEDSIDE GLUCOSE 202 MG/DL (80-115)
[2018-03-22 12:10] LABS: IMMEDIATE SPIN CROSSMATCH 1 1
[2018-03-22 17:09] LABS: BEDSIDE GLUCOSE 204 MG/DL (80-115)
[2018-03-22 20:03] LABS: BEDSIDE GLUCOSE 294 MG/DL (80-115)
[2018-03-22] MEDS: LEVEMIR (INSULIN DETEMIR) 1 UNITS/0.01ML SC (21:47)
[2018-03-22] MEDS: ACETAMINOPHEN 500 MG TAB PO (21:59)
[2018-03-23] MEDS: LevoFLOXacin 500 MG TABLET PO (05:13)
[2018-03-23] MEDS: HEPARIN SOD (PORCINE) 5000 UNITS/ML VIAL SQ (05:13)
[2018-03-23] MEDS: SODIUM CHLORIDE 0.9% INJ 10 ML SYR IV ×3 (05:14→21:09)
[2018-03-23 05:46] LABS: BASO % 0.3 % (0.0-1.0); EOS # 0.2 10^3/uL (0.0-0.50); HEMATOCRIT 26.4 % (42.0-52.0); HEMOGLOBIN 8.3 g/dl (13.5-17.5); IMMATURE GRANULOCYTE % 4.5 % (0-3.0); LYMPH # 0.4 10^3/uL (1.5-4.5); LYMPH % 5.3 % (24.0-44.0); MEAN CORPUSCULAR HEMOGLOBIN 28.4 pg (27.0-33.0); MEAN CORPUSCULAR HGB CONC 31.4 g/dl (32.0-36.5); MEAN CORPUSCULAR VOLUME 90.4 fl (80.0-96.0); MONO # 0.5 10^3/uL (0.0-0.8); MONO % 6.3 % (0.0-5.0); NEUTROPHILS # 6.5 10^3/uL (1.8-7.7); NEUTROPHILS % 81.6 % (36.0-66.0); PLATELET COUNT, AUTOMATED 192 10^3/uL (150-450); RED BLOOD COUNT 2.92 10^6/uL (4.30-6.10); RED CELL DISTRIBUTION WIDTH 16.4 % (11.5-14.5)
[2018-03-23 06:00] LABS: ANION GAP 3 MEQ/L (8-16); BLOOD UREA NITROGEN 50 MG/DL (7-18); CARBON DIOXIDE LEVEL 35 MEQ/L (21-32); CHLORIDE LEVEL 102 MEQ/L (98-107); CREATININE FOR GFR 1.15 MG/DL (0.70-1.30); GLOMERULAR FILTRATION RATE > 60.0 (>49); GLUCOSE, FASTING 246 MG/DL (70-100); MAGNESIUM LEVEL 1.7 MG/DL (1.8-2.4); POTASSIUM SERUM 3.9 MEQ/L (3.5-5.1); SODIUM LEVEL 140 MEQ/L (136-145)
[2018-03-23] MEDS: LINEZOLID 600MG TABLET (ZYVOX) PO ×2 (08:55→21:09)
[2018-03-23] MEDS: FUROSEMIDE 40 MG/4 ML VIAL (J1940) IV ×2 (08:55→18:31)
[2018-03-23] MEDS: FAMOTIDINE 20 MG TAB PO (08:55)
[2018-03-23] MEDS: MAGNESIUM OXIDE 400 MG TAB (MAG-OX) PO ×3 (08:55→21:09)
[2018-03-23] MEDS: METOPROLOL TART 25 MG TABLET PO ×2 (08:55→21:12)
[2018-03-23] MEDS: EUCERIN 120GM CREAM TOP ×2 (08:56→21:09)
[2018-03-23] MEDS: HumaLOG INSULIN (NovoLOG) PER UNIT SC ×4 (08:56→20:54)
[2018-03-23] MEDS: FLUTICASONE PROP 0.05% NASAL SPRAY 16 GM (FLONASE) (08:57)
[2018-03-23] MEDS: NYSTATIN 100,000 UNITS/GM TOPICAL PWD 15 GM TOP ×2 (08:58→21:09)
[2018-03-23] MEDS: ADVAIR HFA 230/21MCG INHALER INH ×2 (09:04→21:00)
[2018-03-23 12:07] LABS: BEDSIDE GLUCOSE 261 MG/DL (80-115)
[2018-03-23 16:49] LABS: BEDSIDE GLUCOSE 227 MG/DL (80-115)
[2018-03-23] MEDS: RIVAROXABAN 20 MG TAB (XARELTO) PO (18:31)
[2018-03-23 20:26] LABS: BEDSIDE GLUCOSE 230 MG/DL (80-115)
[2018-03-23] MEDS: LEVEMIR (INSULIN DETEMIR) 1 UNITS/0.01ML SC (21:10)
[2018-03-24] MEDS: SODIUM CHLORIDE 0.9% INJ 10 ML SYR IV ×4 (05:33→21:20)
[2018-03-24] MEDS: LevoFLOXacin 500 MG TABLET PO (05:41)
[2018-03-24 05:46] LABS: BASO % 0.3 % (0.0-1.0); EOS # 0.1 10^3/uL (0.0-0.50); EOS % 0.9 % (0.0-3.0); HEMATOCRIT 26.8 % (42.0-52.0); HEMOGLOBIN 8.4 g/dl (13.5-17.5); IMMATURE GRANULOCYTE % 1.6 % (0-3.0); LYMPH # 0.4 10^3/uL (1.5-4.5); LYMPH % 4.3 % (24.0-44.0); MEAN CORPUSCULAR HEMOGLOBIN 28.1 pg (27.0-33.0); MEAN CORPUSCULAR HGB CONC 31.3 g/dl (32.0-36.5); MEAN CORPUSCULAR VOLUME 89.6 fl (80.0-96.0); MONO # 0.5 10^3/uL (0.0-0.8); MONO % 5.1 % (0.0-5.0); NEUTROPHILS # 8.1 10^3/uL (1.8-7.7); NEUTROPHILS % 87.8 % (36.0-66.0); PLATELET COUNT, AUTOMATED 208 10^3/uL (150-450); RED BLOOD COUNT 2.99 10^6/uL (4.30-6.10); RED CELL DISTRIBUTION WIDTH 16.6 % (11.5-14.5); WHITE BLOOD COUNT 9.3 10^3/uL (4.0-10.0)
[2018-03-24 06:11] LABS: ANION GAP 3 MEQ/L (8-16); BLOOD UREA NITROGEN 43 MG/DL (7-18); CALCIUM LEVEL 8.6 MG/DL (8.8-10.2); CARBON DIOXIDE LEVEL 35 MEQ/L (21-32); CHLORIDE LEVEL 103 MEQ/L (98-107); CREATININE FOR GFR 1.24 MG/DL (0.70-1.30); GLOMERULAR FILTRATION RATE > 60.0 (>49); GLUCOSE, FASTING 168 MG/DL (70-100); MAGNESIUM LEVEL 1.7 MG/DL (1.8-2.4); POTASSIUM SERUM 3.9 MEQ/L (3.5-5.1); SODIUM LEVEL 141 MEQ/L (136-145)
[2018-03-24] MEDS: FAMOTIDINE 20 MG TAB PO (08:59)
[2018-03-24] MEDS: MAGNESIUM OXIDE 400 MG TAB (MAG-OX) PO ×3 (08:59→21:18)
[2018-03-24] MEDS: METOPROLOL TART 25 MG TABLET PO ×2 (08:59→21:19)
[2018-03-24] MEDS: LINEZOLID 600MG TABLET (ZYVOX) PO ×2 (08:59→21:18)
[2018-03-24] MEDS: FUROSEMIDE 40 MG/4 ML VIAL (J1940) IV ×2 (09:00→17:02)
[2018-03-24] MEDS: ADVAIR HFA 230/21MCG INHALER INH ×2 (09:00→20:17)
[2018-03-24] MEDS: HumaLOG INSULIN (NovoLOG) PER UNIT SC ×4 (09:01→20:39)
[2018-03-24] MEDS: EUCERIN 120GM CREAM TOP ×2 (09:02→21:20)
[2018-03-24] MEDS: FLUTICASONE PROP 0.05% NASAL SPRAY 16 GM (FLONASE) (09:02)
[2018-03-24] MEDS: NYSTATIN 100,000 UNITS/GM TOPICAL PWD 15 GM TOP ×2 (09:02→21:20)
[2018-03-24] MEDS ORDERED: CEPACOL LOZENGE PO (09:45)
[2018-03-24] MEDS: LEVEMIR (INSULIN DETEMIR) 1 UNITS/0.01ML SC ×3 (10:35→21:17)
[2018-03-24 11:52] LABS: BEDSIDE GLUCOSE 188 MG/DL (80-115)
[2018-03-24 16:51] LABS: BEDSIDE GLUCOSE 118 MG/DL (80-115)
[2018-03-24] MEDS: RIVAROXABAN 20 MG TAB (XARELTO) PO (17:03)
[2018-03-24 20:18] LABS: BEDSIDE GLUCOSE 92 MG/DL (80-115)
[2018-03-25] MEDS: SODIUM CHLORIDE 0.9% INJ 10 ML SYR IV ×4 (05:27→22:35)
[2018-03-25] MEDS: LevoFLOXacin 500 MG TABLET PO (05:27)
[2018-03-25 05:56] LABS: BASO % 0.4 % (0.0-1.0); EOS # 0.1 10^3/uL (0.0-0.50); EOS % 1.3 % (0.0-3.0); HEMATOCRIT 26.1 % (42.0-52.0); HEMOGLOBIN 8.1 g/dl (13.5-17.5); LYMPH # 0.4 10^3/uL (1.5-4.5); MEAN CORPUSCULAR VOLUME 90.3 fl (80.0-96.0); MONO # 0.4 10^3/uL (0.0-0.8); MONO % 5.2 % (0.0-5.0); NEUTROPHILS # 6.2 10^3/uL (1.8-7.7); NEUTROPHILS % 86.1 % (36.0-66.0); PLATELET COUNT, AUTOMATED 200 10^3/uL (150-450); RED BLOOD COUNT 2.89 10^6/uL (4.30-6.10); RED CELL DISTRIBUTION WIDTH 16.5 % (11.5-14.5); WHITE BLOOD COUNT 7.2 10^3/uL (4.0-10.0)
[2018-03-25 06:31] LABS: ANION GAP 4 MEQ/L (8-16); BLOOD UREA NITROGEN 36 MG/DL (7-18); CALCIUM LEVEL 8.2 MG/DL (8.8-10.2); CARBON DIOXIDE LEVEL 36 MEQ/L (21-32); CHLORIDE LEVEL 103 MEQ/L (98-107); CREATININE FOR GFR 1.11 MG/DL (0.70-1.30); GLOMERULAR FILTRATION RATE > 60.0 (>49); GLUCOSE, FASTING 87 MG/DL (70-100); POTASSIUM SERUM 3.9 MEQ/L (3.5-5.1); SODIUM LEVEL 143 MEQ/L (136-145)
[2018-03-25] MEDS: ADVAIR HFA 230/21MCG INHALER INH ×2 (07:29→19:52)
[2018-03-25] MEDS: HumaLOG INSULIN (NovoLOG) PER UNIT SC ×4 (07:30→22:32)
[2018-03-25] MEDS: LEVEMIR (INSULIN DETEMIR) 1 UNITS/0.01ML SC ×2 (08:48→22:33)
[2018-03-25] MEDS: FAMOTIDINE 20 MG TAB PO (08:48)
[2018-03-25] MEDS: FUROSEMIDE 40 MG/4 ML VIAL (J1940) IV ×2 (08:48→16:09)
[2018-03-25] MEDS: MAGNESIUM OXIDE 400 MG TAB (MAG-OX) PO ×3 (08:48→22:31)
[2018-03-25] MEDS: LINEZOLID 600MG TABLET (ZYVOX) PO ×2 (08:49→22:31)
[2018-03-25] MEDS: METOPROLOL TART 50 MG TAB PO ×2 (08:50→22:31)
[2018-03-25] MEDS: FLUTICASONE PROP 0.05% NASAL SPRAY 16 GM (FLONASE) (08:52)
[2018-03-25] MEDS: EUCERIN 120GM CREAM TOP ×2 (08:52→22:34)
[2018-03-25] MEDS: NYSTATIN 100,000 UNITS/GM TOPICAL PWD 15 GM TOP ×2 (08:52→22:34)
[2018-03-25 11:37] LABS: BEDSIDE GLUCOSE 159 MG/DL (80-115)
[2018-03-25 16:36] LABS: BEDSIDE GLUCOSE 171 MG/DL (80-115)
[2018-03-25] MEDS: RIVAROXABAN 20 MG TAB (XARELTO) PO (17:43)
[2018-03-25 20:30] LABS: BEDSIDE GLUCOSE 189 MG/DL (80-115)
[2018-03-26] MEDS: ACETAMINOPHEN 500 MG TAB PO ×2 (02:59→17:05)
[2018-03-26] MEDS: SODIUM CHLORIDE 0.9% INJ 10 ML SYR IV ×2 (06:03→15:06)
[2018-03-26] MEDS: LevoFLOXacin 500 MG TABLET PO (06:03)
[2018-03-26 06:39] LABS: BASO % 0.4 % (0.0-1.0); EOS # 0.1 10^3/uL (0.0-0.50); EOS % 2.1 % (0.0-3.0); HEMATOCRIT 27.1 % (42.0-52.0); HEMOGLOBIN 8.5 g/dl (13.5-17.5); IMMATURE GRANULOCYTE % 0.9 % (0-3.0); LYMPH # 0.4 10^3/uL (1.5-4.5); LYMPH % 7.1 % (24.0-44.0); MEAN CORPUSCULAR HEMOGLOBIN 28.6 pg (27.0-33.0); MEAN CORPUSCULAR HGB CONC 31.4 g/dl (32.0-36.5); MEAN CORPUSCULAR VOLUME 91.2 fl (80.0-96.0); MONO # 0.2 10^3/uL (0.0-0.8); MONO % 4.1 % (0.0-5.0); NEUTROPHILS # 4.8 10^3/uL (1.8-7.7); NEUTROPHILS % 85.4 % (36.0-66.0); PLATELET COUNT, AUTOMATED 219 10^3/uL (150-450); RED BLOOD COUNT 2.97 10^6/uL (4.30-6.10); RED CELL DISTRIBUTION WIDTH 16.3 % (11.5-14.5); WHITE BLOOD COUNT 5.6 10^3/uL (4.0-10.0)
[2018-03-26 07:18] LABS: ANION GAP 3 MEQ/L (8-16); BLOOD UREA NITROGEN 37 MG/DL (7-18); CALCIUM LEVEL 8.4 MG/DL (8.8-10.2); CARBON DIOXIDE LEVEL 37 MEQ/L (21-32); CHLORIDE LEVEL 103 MEQ/L (98-107); CREATININE FOR GFR 1.15 MG/DL (0.70-1.30); GLOMERULAR FILTRATION RATE > 60.0 (>49); GLUCOSE, FASTING 152 MG/DL (70-100); POTASSIUM SERUM 3.8 MEQ/L (3.5-5.1); SODIUM LEVEL 143 MEQ/L (136-145)
[2018-03-26] MEDS: ADVAIR HFA 230/21MCG INHALER INH ×2 (08:10→20:48)
[2018-03-26] MEDS: HumaLOG INSULIN (NovoLOG) PER UNIT SC ×4 (08:13→21:00)
[2018-03-26] MEDS: FUROSEMIDE 40 MG/4 ML VIAL (J1940) IV (08:14)
[2018-03-26] MEDS: LEVEMIR (INSULIN DETEMIR) 1 UNITS/0.01ML SC ×2 (08:14→21:36)
[2018-03-26] MEDS: LINEZOLID 600MG TABLET (ZYVOX) PO ×2 (08:15→21:37)
[2018-03-26] MEDS: MAGNESIUM OXIDE 400 MG TAB (MAG-OX) PO ×3 (08:15→21:37)
[2018-03-26] MEDS: FAMOTIDINE 20 MG TAB PO (08:16)
[2018-03-26] MEDS: METOPROLOL TART 50 MG TAB PO ×2 (08:16→21:38)
[2018-03-26] MEDS: FLUTICASONE PROP 0.05% NASAL SPRAY 16 GM (FLONASE) (08:17)
[2018-03-26] MEDS: NYSTATIN 100,000 UNITS/GM TOPICAL PWD 15 GM TOP ×2 (08:18→21:36)
[2018-03-26] MEDS: EUCERIN 120GM CREAM TOP ×2 (08:18→21:36)
[2018-03-26 11:35] LABS: BEDSIDE GLUCOSE 177 MG/DL (80-115)
[2018-03-26 16:28] LABS: BEDSIDE GLUCOSE 200 MG/DL (80-115)
[2018-03-26] MEDS: RIVAROXABAN 20 MG TAB (XARELTO) PO (17:05)
[2018-03-26 20:44] LABS: BEDSIDE GLUCOSE 219 MG/DL (80-115)
[2018-03-27 06:36] LABS: EOS # 0.2 10^3/uL (0.0-0.50); EOS % 4.1 % (0.0-3.0); HEMATOCRIT 26.6 % (42.0-52.0); HEMOGLOBIN 8.4 g/dl (13.5-17.5); IMMATURE GRANULOCYTE % 0.8 % (0-3.0); LYMPH # 0.4 10^3/uL (1.5-4.5); LYMPH % 10.7 % (24.0-44.0); MEAN CORPUSCULAR HEMOGLOBIN 28.2 pg (27.0-33.0); MEAN CORPUSCULAR HGB CONC 31.6 g/dl (32.0-36.5); MEAN CORPUSCULAR VOLUME 89.3 fl (80.0-96.0); MONO # 0.3 10^3/uL (0.0-0.8); MONO % 8.1 % (0.0-5.0); NEUTROPHILS % 75.3 % (36.0-66.0); PLATELET COUNT, AUTOMATED 198 10^3/uL (150-450); RED BLOOD COUNT 2.98 10^6/uL (4.30-6.10); RED CELL DISTRIBUTION WIDTH 16.3 % (11.5-14.5); WHITE BLOOD COUNT 3.9 10^3/uL (4.0-10.0)
[2018-03-27 06:54] LABS: ANION GAP 4 MEQ/L (8-16); BLOOD UREA NITROGEN 35 MG/DL (7-18); CALCIUM LEVEL 8.6 MG/DL (8.8-10.2); CARBON DIOXIDE LEVEL 35 MEQ/L (21-32); CHLORIDE LEVEL 101 MEQ/L (98-107); CREATININE FOR GFR 1.09 MG/DL (0.70-1.30); GLOMERULAR FILTRATION RATE > 60.0 (>49); GLUCOSE, FASTING 190 MG/DL (70-100); POTASSIUM SERUM 3.6 MEQ/L (3.5-5.1); SODIUM LEVEL 140 MEQ/L (136-145)
[2018-03-27] MEDS: FUROSEMIDE 20 MG TAB PO (07:40)
[2018-03-27] MEDS: HumaLOG INSULIN (NovoLOG) PER UNIT SC ×4 (07:40→20:49)
[2018-03-27] MEDS: FAMOTIDINE 20 MG TAB PO (07:40)
[2018-03-27] MEDS: LEVEMIR (INSULIN DETEMIR) 1 UNITS/0.01ML SC ×2 (07:40→20:49)
[2018-03-27] MEDS: MAGNESIUM OXIDE 400 MG TAB (MAG-OX) PO ×3 (07:41→20:50)
[2018-03-27] MEDS: LINEZOLID 600MG TABLET (ZYVOX) PO ×2 (07:41→20:50)
[2018-03-27] MEDS: METOPROLOL TART 50 MG TAB PO ×2 (07:41→20:50)
[2018-03-27] MEDS: NYSTATIN 100,000 UNITS/GM TOPICAL PWD 15 GM TOP ×2 (07:41→20:49)
[2018-03-27] MEDS: FLUTICASONE PROP 0.05% NASAL SPRAY 16 GM (FLONASE) (07:42)
[2018-03-27] MEDS: EUCERIN 120GM CREAM TOP ×2 (07:42→20:50)
[2018-03-27] MEDS: ADVAIR HFA 230/21MCG INHALER INH ×2 (09:12→21:27)
[2018-03-27 11:51] LABS: BEDSIDE GLUCOSE 175 MG/DL (80-115)
[2018-03-27] MEDS: RIVAROXABAN 20 MG TAB (XARELTO) PO (18:02)
[2018-03-28] MEDS: RAMELTEON 8 MG TAB (ROZEREM) PO ×2 (00:05→21:19)
[2018-03-28] MEDS: ACETAMINOPHEN 500 MG TAB PO (01:36)
[2018-03-28 05:32] LABS: BASO % 1.2 % (0.0-1.0); EOS # 0.1 10^3/uL (0.0-0.50); EOS % 4.3 % (0.0-3.0); HEMATOCRIT 27.4 % (42.0-52.0); HEMOGLOBIN 8.5 g/dl (13.5-17.5); IMMATURE GRANULOCYTE % 0.3 % (0-3.0); LYMPH # 0.6 10^3/uL (1.5-4.5); LYMPH % 17.7 % (24.0-44.0); MEAN CORPUSCULAR VOLUME 90.1 fl (80.0-96.0); MONO # 0.3 10^3/uL (0.0-0.8); MONO % 9.9 % (0.0-5.0); NEUTROPHILS # 2.1 10^3/uL (1.8-7.7); NEUTROPHILS % 66.6 % (36.0-66.0); PLATELET COUNT, AUTOMATED 180 10^3/uL (150-450); RED BLOOD COUNT 3.04 10^6/uL (4.30-6.10); RED CELL DISTRIBUTION WIDTH 16.3 % (11.5-14.5); WHITE BLOOD COUNT 3.2 10^3/uL (4.0-10.0)
[2018-03-28 05:54] LABS: ANION GAP 5 MEQ/L (8-16); BLOOD UREA NITROGEN 34 MG/DL (7-18); CALCIUM LEVEL 8.6 MG/DL (8.8-10.2); CARBON DIOXIDE LEVEL 36 MEQ/L (21-32); CHLORIDE LEVEL 104 MEQ/L (98-107); CREATININE FOR GFR 1.19 MG/DL (0.70-1.30); GLOMERULAR FILTRATION RATE > 60.0 (>49); GLUCOSE, FASTING 182 MG/DL (70-100); POTASSIUM SERUM 3.7 MEQ/L (3.5-5.1); SODIUM LEVEL 145 MEQ/L (136-145)
[2018-03-28] MEDS: MAGNESIUM OXIDE 400 MG TAB (MAG-OX) PO ×3 (08:11→21:19)
[2018-03-28] MEDS: FUROSEMIDE 20 MG TAB PO (08:11)
[2018-03-28] MEDS: FAMOTIDINE 20 MG TAB PO (08:12)
[2018-03-28] MEDS: METOPROLOL TART 50 MG TAB PO ×2 (08:12→21:22)
[2018-03-28] MEDS: HumaLOG INSULIN (NovoLOG) PER UNIT SC ×4 (08:12→20:10)
[2018-03-28] MEDS: EUCERIN 120GM CREAM TOP ×2 (08:13→21:20)
[2018-03-28] MEDS: LEVEMIR (INSULIN DETEMIR) 1 UNITS/0.01ML SC ×2 (08:13→21:20)
[2018-03-28] MEDS: NYSTATIN 100,000 UNITS/GM TOPICAL PWD 15 GM TOP ×2 (08:13→21:21)
[2018-03-28] MEDS: FLUTICASONE PROP 0.05% NASAL SPRAY 16 GM (FLONASE) (08:13)
[2018-03-28] MEDS: ADVAIR HFA 230/21MCG INHALER INH ×2 (08:44→21:48)
[2018-03-28 10:11] LABS: BEDSIDE GLUCOSE 229 MG/DL (80-115)
[2018-03-28 10:12] LABS: BEDSIDE GLUCOSE 290 MG/DL (80-115)
[2018-03-28 11:45] LABS: BEDSIDE GLUCOSE 223 MG/DL (80-115)
[2018-03-28] MEDS: RIVAROXABAN 20 MG TAB (XARELTO) PO (17:00)
[2018-03-28 20:05] LABS: BEDSIDE GLUCOSE 176 MG/DL (80-115)
[2018-03-29 05:36] LABS: BEDSIDE GLUCOSE 191 MG/DL (80-115)
[2018-03-29 05:45] LABS: BEDSIDE GLUCOSE 167 MG/DL (80-115)
[2018-03-29 06:23] LABS: C REACTIVE PROTEIN QUANTITATIV 2.91 MG/DL (0.00-0.30)
[2018-03-29] MEDS: ADVAIR HFA 230/21MCG INHALER INH ×2 (07:54→19:45)
[2018-03-29] MEDS: HumaLOG INSULIN (NovoLOG) PER UNIT SC ×4 (08:10→21:00)
[2018-03-29] MEDS: LEVEMIR (INSULIN DETEMIR) 1 UNITS/0.01ML SC ×2 (08:10→22:27)
[2018-03-29] MEDS: EUCERIN 120GM CREAM TOP ×2 (08:12→22:28)
[2018-03-29] MEDS: NYSTATIN 100,000 UNITS/GM TOPICAL PWD 15 GM TOP ×2 (08:12→22:28)
[2018-03-29] MEDS: FLUTICASONE PROP 0.05% NASAL SPRAY 16 GM (FLONASE) (08:13)
[2018-03-29] MEDS: FAMOTIDINE 20 MG TAB PO (08:13)
[2018-03-29] MEDS: FUROSEMIDE 20 MG TAB PO (08:13)
[2018-03-29] MEDS: METOPROLOL TART 50 MG TAB PO ×2 (08:14→22:29)
[2018-03-29] MEDS: MAGNESIUM OXIDE 400 MG TAB (MAG-OX) PO ×3 (08:14→22:26)
[2018-03-29 11:28] LABS: BEDSIDE GLUCOSE 178 MG/DL (80-115)
[2018-03-29 16:44] LABS: BEDSIDE GLUCOSE 178 MG/DL (80-115)
[2018-03-29] MEDS: RIVAROXABAN 20 MG TAB (XARELTO) PO (17:46)
[2018-03-29 20:13] LABS: BEDSIDE GLUCOSE 201 MG/DL (80-115)
[2018-03-29] MEDS: RAMELTEON 8 MG TAB (ROZEREM) PO (22:26)
[2018-03-30 07:35] LABS: BEDSIDE GLUCOSE 126 MG/DL (80-115)
[2018-03-30] MEDS: ADVAIR HFA 230/21MCG INHALER INH ×2 (07:51→20:03)
[2018-03-30] MEDS: MAGNESIUM OXIDE 400 MG TAB (MAG-OX) PO ×3 (08:13→22:40)
[2018-03-30] MEDS: METOPROLOL TART 50 MG TAB PO ×2 (08:14→22:40)
[2018-03-30] MEDS: FAMOTIDINE 20 MG TAB PO (08:14)
[2018-03-30] MEDS: FUROSEMIDE 20 MG TAB PO (08:14)
[2018-03-30] MEDS: HumaLOG INSULIN (NovoLOG) PER UNIT SC ×4 (08:15→22:39)
[2018-03-30] MEDS: LEVEMIR (INSULIN DETEMIR) 1 UNITS/0.01ML SC ×2 (08:15→22:40)
[2018-03-30] MEDS: NYSTATIN 100,000 UNITS/GM TOPICAL PWD 15 GM TOP ×2 (08:16→22:41)
[2018-03-30] MEDS: EUCERIN 120GM CREAM TOP ×2 (08:16→22:41)
[2018-03-30] MEDS: FLUTICASONE PROP 0.05% NASAL SPRAY 16 GM (FLONASE) (08:16)
[2018-03-30 11:45] LABS: BEDSIDE GLUCOSE 160 MG/DL (80-115)
[2018-03-30 17:14] LABS: BEDSIDE GLUCOSE 158 MG/DL (80-115)
[2018-03-30] MEDS: RIVAROXABAN 20 MG TAB (XARELTO) PO (17:37)
[2018-03-30 20:36] LABS: BEDSIDE GLUCOSE 184 MG/DL (80-115)
[2018-03-30] MEDS: RAMELTEON 8 MG TAB (ROZEREM) PO (22:39)
[2018-03-31 06:36] LABS: BEDSIDE GLUCOSE 133 MG/DL (80-115)
[2018-03-31] MEDS: ADVAIR HFA 230/21MCG INHALER INH ×2 (07:39→20:03)
[2018-03-31] MEDS: HumaLOG INSULIN (NovoLOG) PER UNIT SC ×4 (08:07→20:39)
[2018-03-31] MEDS: METOPROLOL TART 50 MG TAB PO ×2 (08:08→20:38)
[2018-03-31] MEDS: FUROSEMIDE 20 MG TAB PO (08:08)
[2018-03-31] MEDS: MAGNESIUM OXIDE 400 MG TAB (MAG-OX) PO ×3 (08:08→20:38)
[2018-03-31] MEDS: FAMOTIDINE 20 MG TAB PO (08:08)
[2018-03-31] MEDS: LEVEMIR (INSULIN DETEMIR) 1 UNITS/0.01ML SC ×2 (08:09→20:40)
[2018-03-31] MEDS: FLUTICASONE PROP 0.05% NASAL SPRAY 16 GM (FLONASE) (08:09)
[2018-03-31] MEDS: EUCERIN 120GM CREAM TOP ×2 (08:09→20:40)
[2018-03-31] MEDS: NYSTATIN 100,000 UNITS/GM TOPICAL PWD 15 GM TOP ×2 (08:10→21:44)
[2018-03-31 12:03] LABS: BEDSIDE GLUCOSE 168 MG/DL (80-115)
[2018-03-31 16:56] LABS: BEDSIDE GLUCOSE 185 MG/DL (80-115)
[2018-03-31] MEDS: RIVAROXABAN 20 MG TAB (XARELTO) PO (17:25)
[2018-03-31 20:29] LABS: BEDSIDE GLUCOSE 213 MG/DL (80-115)
[2018-03-31] MEDS: RAMELTEON 8 MG TAB (ROZEREM) PO (20:37)
[2018-04-01] MEDS: ACETAMINOPHEN 500 MG TAB PO (03:31)
[2018-04-01 05:57] LABS: HEMATOCRIT 26.9 % (42.0-52.0); HEMOGLOBIN 8.2 g/dl (13.5-17.5); MEAN CORPUSCULAR HEMOGLOBIN 27.5 pg (27.0-33.0); MEAN CORPUSCULAR HGB CONC 30.5 g/dl (32.0-36.5); MEAN CORPUSCULAR VOLUME 90.3 fl (80.0-96.0); PLATELET COUNT, AUTOMATED 173 10^3/uL (150-450); RED BLOOD COUNT 2.98 10^6/uL (4.30-6.10); RED CELL DISTRIBUTION WIDTH 16.1 % (11.5-14.5); WHITE BLOOD COUNT 3.2 10^3/uL (4.0-10.0)
[2018-04-01 06:20] LABS: ANION GAP 5 MEQ/L (8-16); BLOOD UREA NITROGEN 23 MG/DL (7-18); CALCIUM LEVEL 8.2 MG/DL (8.8-10.2); CARBON DIOXIDE LEVEL 33 MEQ/L (21-32); CHLORIDE LEVEL 101 MEQ/L (98-107); CREATININE FOR GFR 0.99 MG/DL (0.70-1.30); GLOMERULAR FILTRATION RATE > 60.0 (>49); GLUCOSE, FASTING 126 MG/DL (70-100); POTASSIUM SERUM 3.7 MEQ/L (3.5-5.1); SODIUM LEVEL 139 MEQ/L (136-145)
[2018-04-01] MEDS: METOPROLOL TART 50 MG TAB PO ×2 (07:36→20:58)
[2018-04-01] MEDS: HumaLOG INSULIN (NovoLOG) PER UNIT SC ×4 (07:36→20:53)
[2018-04-01] MEDS: FAMOTIDINE 20 MG TAB PO (07:36)
[2018-04-01] MEDS: MAGNESIUM OXIDE 400 MG TAB (MAG-OX) PO ×3 (07:36→20:59)
[2018-04-01] MEDS: FUROSEMIDE 20 MG TAB PO (07:36)
[2018-04-01] MEDS: LEVEMIR (INSULIN DETEMIR) 1 UNITS/0.01ML SC ×2 (07:37→20:59)
[2018-04-01] MEDS: EUCERIN 120GM CREAM TOP ×2 (07:37→21:00)
[2018-04-01] MEDS: FLUTICASONE PROP 0.05% NASAL SPRAY 16 GM (FLONASE) (07:37)
[2018-04-01] MEDS: NYSTATIN 100,000 UNITS/GM TOPICAL PWD 15 GM TOP ×2 (07:38→20:59)
[2018-04-01] MEDS: ADVAIR HFA 230/21MCG INHALER INH ×2 (08:40→20:06)
[2018-04-01 11:29] LABS: BEDSIDE GLUCOSE 196 MG/DL (80-115)
[2018-04-01 17:04] LABS: BEDSIDE GLUCOSE 166 MG/DL (80-115)
[2018-04-01] MEDS: RIVAROXABAN 20 MG TAB (XARELTO) PO (17:20)
[2018-04-01 20:32] LABS: BEDSIDE GLUCOSE 196 MG/DL (80-115)
[2018-04-01] MEDS: RAMELTEON 8 MG TAB (ROZEREM) PO (20:58)
[2018-04-02 05:52] LABS: HEMATOCRIT 27.6 % (42.0-52.0); HEMOGLOBIN 8.3 g/dl (13.5-17.5); MEAN CORPUSCULAR HEMOGLOBIN 27.4 pg (27.0-33.0); MEAN CORPUSCULAR HGB CONC 30.1 g/dl (32.0-36.5); MEAN CORPUSCULAR VOLUME 91.1 fl (80.0-96.0); PLATELET COUNT, AUTOMATED 176 10^3/uL (150-450); RED BLOOD COUNT 3.03 10^6/uL (4.30-6.10); RED CELL DISTRIBUTION WIDTH 15.8 % (11.5-14.5); WHITE BLOOD COUNT 3.3 10^3/uL (4.0-10.0)
[2018-04-02 06:33] LABS: BEDSIDE GLUCOSE 103 MG/DL (80-115)
[2018-04-02] MEDS: ADVAIR HFA 230/21MCG INHALER INH ×2 (08:15→20:00)
[2018-04-02] MEDS: HumaLOG INSULIN (NovoLOG) PER UNIT SC ×4 (08:35→20:25)
[2018-04-02] MEDS: LEVEMIR (INSULIN DETEMIR) 1 UNITS/0.01ML SC ×2 (08:35→20:38)
[2018-04-02] MEDS: FAMOTIDINE 20 MG TAB PO (08:35)
[2018-04-02] MEDS: METOPROLOL TART 50 MG TAB PO ×2 (08:36→20:38)
[2018-04-02] MEDS: FUROSEMIDE 20 MG TAB PO (08:36)
[2018-04-02] MEDS: MAGNESIUM OXIDE 400 MG TAB (MAG-OX) PO ×3 (08:36→20:38)
[2018-04-02] MEDS: EUCERIN 120GM CREAM TOP ×2 (08:37→20:39)
[2018-04-02] MEDS: FLUTICASONE PROP 0.05% NASAL SPRAY 16 GM (FLONASE) (08:37)
[2018-04-02] MEDS: NYSTATIN 100,000 UNITS/GM TOPICAL PWD 15 GM TOP ×2 (08:37→20:39)
[2018-04-02 11:32] LABS: BEDSIDE GLUCOSE 141 MG/DL (80-115)
[2018-04-02 17:03] LABS: BEDSIDE GLUCOSE 199 MG/DL (80-115)
[2018-04-02 20:10] LABS: BEDSIDE GLUCOSE 178 MG/DL (80-115)
[2018-04-02] MEDS: RAMELTEON 8 MG TAB (ROZEREM) PO (20:37)
[2018-04-03 06:42] LABS: BEDSIDE GLUCOSE 82 MG/DL (80-115)
[2018-04-03] MEDS: HumaLOG INSULIN (NovoLOG) PER UNIT SC ×4 (07:53→21:00)
[2018-04-03] MEDS: ADVAIR HFA 230/21MCG INHALER INH ×2 (08:23→21:43)
[2018-04-03] MEDS: FAMOTIDINE 20 MG TAB PO (09:18)
[2018-04-03] MEDS: EUCERIN 120GM CREAM TOP ×2 (09:18→21:48)
[2018-04-03] MEDS: NYSTATIN 100,000 UNITS/GM TOPICAL PWD 15 GM TOP ×2 (09:18→21:49)
[2018-04-03] MEDS: LEVEMIR (INSULIN DETEMIR) 1 UNITS/0.01ML SC ×2 (09:18→21:00)
[2018-04-03] MEDS: FUROSEMIDE 20 MG TAB PO (09:19)
[2018-04-03] MEDS: METOPROLOL TART 50 MG TAB PO ×2 (09:19→21:48)
[2018-04-03] MEDS: FLUTICASONE PROP 0.05% NASAL SPRAY 16 GM (FLONASE) (09:19)
[2018-04-03] MEDS: MAGNESIUM OXIDE 400 MG TAB (MAG-OX) PO ×3 (09:19→21:48)
[2018-04-03 11:35] LABS: BEDSIDE GLUCOSE 191 MG/DL (80-115)
[2018-04-03 16:42] LABS: BEDSIDE GLUCOSE 184 MG/DL (80-115)
[2018-04-03 20:57] LABS: BEDSIDE GLUCOSE 230 MG/DL (80-115)
[2018-04-03] MEDS: RAMELTEON 8 MG TAB (ROZEREM) PO (21:47)
[2018-04-04 06:14] LABS: HEMOGLOBIN 8.6 g/dl (13.5-17.5); MEAN CORPUSCULAR HGB CONC 30.7 g/dl (32.0-36.5); MEAN CORPUSCULAR VOLUME 91.2 fl (80.0-96.0); PLATELET COUNT, AUTOMATED 232 10^3/uL (150-450); RED BLOOD COUNT 3.07 10^6/uL (4.30-6.10); RED CELL DISTRIBUTION WIDTH 16.3 % (11.5-14.5); WHITE BLOOD COUNT 3.8 10^3/uL (4.0-10.0)
[2018-04-04 06:29] LABS: ANION GAP 3 MEQ/L (8-16); BLOOD UREA NITROGEN 25 MG/DL (7-18); CALCIUM LEVEL 8.4 MG/DL (8.8-10.2); CARBON DIOXIDE LEVEL 34 MEQ/L (21-32); CHLORIDE LEVEL 104 MEQ/L (98-107); CREATININE FOR GFR 1.08 MG/DL (0.70-1.30); GLOMERULAR FILTRATION RATE > 60.0 (>49); GLUCOSE, FASTING 144 MG/DL (70-100); POTASSIUM SERUM 4.1 MEQ/L (3.5-5.1); SODIUM LEVEL 141 MEQ/L (136-145)
[2018-04-04] MEDS: ADVAIR HFA 230/21MCG INHALER INH (07:27)
[2018-04-04] MEDS: LEVEMIR (INSULIN DETEMIR) 1 UNITS/0.01ML SC (08:48)
[2018-04-04] MEDS: HumaLOG INSULIN (NovoLOG) PER UNIT SC ×2 (08:48→12:47)
[2018-04-04] MEDS: FUROSEMIDE 20 MG TAB PO (08:49)
[2018-04-04] MEDS: MAGNESIUM OXIDE 400 MG TAB (MAG-OX) PO (08:49)
[2018-04-04] MEDS: NYSTATIN 100,000 UNITS/GM TOPICAL PWD 15 GM TOP (08:49)
[2018-04-04] MEDS: FLUTICASONE PROP 0.05% NASAL SPRAY 16 GM (FLONASE) (08:50)
[2018-04-04] MEDS: METOPROLOL TART 50 MG TAB PO (08:50)
[2018-04-04] MEDS: FAMOTIDINE 20 MG TAB PO (08:50)
[2018-04-04] MEDS: EUCERIN 120GM CREAM TOP (08:50)
[2018-04-04 12:45] LABS: BEDSIDE GLUCOSE 161 MG/DL (80-115)
[2018-04-04] MEDS ORDERED: RIVAROXABAN 20 MG TAB (XARELTO) PO (18:00)
== END 2018-04-04 16:25 | DRG 720 ==
LOC: M MSPAV 03-17 16:45 → M ED 21:00 → M ICU 23:38 → M ED 23:27 → M ICU 23:45
PROVIDERS: Internal Medicine
PROC: 02HV33Z Insertion of Infusion Device into Superior Vena Cava, Percutaneous Approach (ICD-10-PCS; principal; 2018-03-14)
PROC: 30233N1 Transfusion of Nonautologous Red Blood Cells into Peripheral Vein, Percutaneous Approach (ICD-10-PCS; 2018-03-17)
DX: A41.9 Sepsis, unspecified organism (principal); N17.0 Acute kidney failure with tubular necrosis; R65.21 Severe sepsis with septic shock; G93.41 Metabolic encephalopathy; L89.152 Pressure ulcer of sacral region, stage 2; I13.0 Hypertensive heart and chronic kidney disease with heart failure and stage 1 through stage 4 chronic kidney disease, or unspecified chronic kidney disease; E46 Unspecified protein-calorie malnutrition; E87.2 Acidosis; I50.32 Chronic diastolic (congestive) heart failure; E11.22 Type 2 diabetes mellitus with diabetic chronic kidney disease; E11.621 Type 2 diabetes mellitus with foot ulcer; I27.20 Pulmonary hypertension, unspecified; I48.2 Chronic atrial fibrillation; J44.9 Chronic obstructive pulmonary disease, unspecified; E66.01 Morbid (severe) obesity due to excess calories; L97.419 Non-pressure chronic ulcer of right heel and midfoot with unspecified severity; L97.821 Non-pressure chronic ulcer of other part of left lower leg limited to breakdown of skin; E11.65 Type 2 diabetes mellitus with hyperglycemia; I48.1 Persistent atrial fibrillation; E83.51 Hypocalcemia; L89.610 Pressure ulcer of right heel, unstageable; E87.1 Hypo-osmolality and hyponatremia; Z68.42 Body mass index [BMI] 45.0-49.9, adult; N18.3 Chronic kidney disease, stage 3 (moderate); M10.9 Gout, unspecified; N40.0 Benign prostatic hyperplasia without lower urinary tract symptoms; E78.5 Hyperlipidemia, unspecified; D63.1 Anemia in chronic kidney disease; J30.9 Allergic rhinitis, unspecified; K21.9 Gastro-esophageal reflux disease without esophagitis; I87.2 Venous insufficiency (chronic) (peripheral); G47.33 Obstructive sleep apnea (adult) (pediatric); L03.115 Cellulitis of right lower limb; L03.116 Cellulitis of left lower limb; N39.0 Urinary tract infection, site not specified; B96.20 Unspecified Escherichia coli [E. coli] as the cause of diseases classified elsewhere; I89.0 Lymphedema, not elsewhere classified; B37.2 Candidiasis of skin and nail; Z79.4 Long term (current) use of insulin; Z79.899 Other long term (current) drug therapy; Z79.01 Long term (current) use of anticoagulants